=== PATIENT | male | born 1965 | race Caucasian/White ===

== ENCOUNTER → 2017-12-14 17:12 | Outpatient (CLI) | payer BC, SELFPAY ==
--- NOTE | 2017-12-14 17:16 | RAD_ITS ---
STUDY: X-RAY - ABDOMEN/PELVIS REASON FOR EXAM: Male, 52 years old. Hematuria, history of kidney stones TECHNIQUE: AP supine and upright views of the abdomen and pelvis. COMPARISON: None. FINDINGS: Normal visualized lung bases. There is an unremarkable bowel gas pattern. There is a moderate amount of colonic stool. There is no demonstrated free abdominal air. The visualized liver, spleen and kidneys are grossly normal in size and morphology. Bilateral scrotal surgical clips are seen. Normal visualized osseous structures. RAD/Abd Inc Decub and/or Erect IMPRESSION: There is a moderate amount of colonic stool consistent with constipation. No abnormal intra-abdominal or intrapelvic calcifications are noted. Bilateral scrotal surgical clips are seen which may be associated with vasectomy. Electronically Signed: Jose Alberto Baker MD at 20:56 EST , Service support ,
== END ==
PROVIDERS: Family Provider Family Medicine; PCP Family Medicine; Visit Provider Family Medicine
DX: N20.0 Calculus of kidney (principal)
CPT/HCPCS: 74019

== ENCOUNTER 2019-02-10 00:25 | Emergency (ER) | payer BC, SELFPAY ==
[2019-02-10 00:25] VITALS: BP 165/110; PULSE 72; RESP 18; TEMP 37; O2SAT 98; BMI 26.5
[2019-02-10] MEDS: Diphth,Pertuss(Acell),Tet Vac 0.5 ML Vial IM (00:36)
--- NOTE | 2019-02-10 00:37 | ED.DCSUM_ITS ---
History of Present Illness Chief Complaint: Laceration Informant: Patient Onset: Today - less than 1 hr Context: Sudden Onset - accidentally cut w/ box knife/razor Timing: Continuous Quality: sore Location: left thumb Current Severity: Moderate Maximum Severity: Moderate Worsened by: palpation Relieved by: bleeding helped w/ pressure Associated Symptoms: numbness in thumb distal to lac Narrative: Right-hand dominant. Last tetanus unknown. Able to move his thumb, but immediately felt numb distally. Nonwork related injury. Past Medical History - Allergies and Home Meds Allergies/Adverse Reactions: Allergies No Known Allergies Allergy (Verified 02/10/19 00:27) Primary Care Physician: Chase Davila MD [Primary Care Provider] - Past Medical History: None Lives: Spouse/ Significant Other Smoking Status: Never smoker Review of Systems Musculoskeletal: Reports: Extremity Pain Skin: Reports: Wounds Neurological: Reports: Numbness. Denies: Weakness Physical Exam Vital Signs/Narrative: Vital Signs Temp Pulse Resp BP Pulse Ox 02/10/19 00:25 98.6 F 72 18 165/110 H 98 Inital Vital Signs reviewed: Yes General: Well nourished, Well developed, No Acute Distress Head: Normocephalic, Atraumatic Extremities: Tenderness - at left thumb laceration. no deformity. FROM all joints, all tendon function intact. Skin: Trauma - 3cm full thickness linear, clean-appearing laceration radial aspect left thumb, proximal phalanx. occasionally arterial component to bleeding. Neurological: Alert, Oriented x3, Cranial nerves II-XII grossly intact, Normal Strength, Normal Gait, Parasthesia - at radial aspect of left thumb, distal to laceration; sens intact but decreased. Psychological: Normal affect, Normal Mood Diagnostic/Tx/Re-eval - Medical Decision Making Arterial bleeding was able to be well controlled using pressure, before and during the procedure. No arterial bleeding after the repair, only minor oozing from the wound. Given appropriate dressing, discharge instructions, advised with regards to removal in approximately 10-14 days. Advised that he did probably injure/lacerate the radial digital nerve, and that it may be months before he regains full normal sensation to his thumb. Procedures - Lacerations left thumb Length: 3 cm Depth: Sub Q Shape: Linear Prep: Sterile Conditions, Chlorhexadine Laceration repair: Irrigated, Lidocaine, Local Irrigated (ml): 30 Number of Sutures/[place]: 6 Suture Information: Ethilon, Simple, 5-0 Comment: tornicot used for about 10 minutes, but needed to be removed for final #3 sutures due to proximity to wound. no complications. tolerated well. good hemostasis afterwards. ED Disposition - Plan for ED Patient: Disposition: Home or Assisted Living Diagnosis: Laceration of blood vessel of left thumb, initial encounter, Laceration of left thumb without foreign body without damage to nail Instructions: ED Lac Hand Poss Nerve Injy Sutr Gl Referrals: Chase Davila MD [Primary Care Provider] - 10-14 Days suture removal
[2019-02-10 01:35] VITALS: PULSE 72; RESP 18; O2SAT 98
== END 2019-02-10 01:35 | disposition home or self-care (01) ==
PROVIDERS: Emergency Provider Emergency Medicine; Family Provider Family Medicine; PCP Family Medicine
DX: S61.012A Laceration without foreign body of left thumb without damage to nail, initial encounter (principal); S65.412A Laceration of blood vessel of left thumb, initial encounter; W27.8XXA Contact with other nonpowered hand tool, initial encounter; Y93.9 Activity, unspecified; Y92.9 Unspecified place or not applicable; Y99.9 Unspecified external cause status; Z23 Encounter for immunization; Z79.899 Other long term (current) drug therapy
CPT/HCPCS: 12002; 90471; 90715; 99283

== ENCOUNTER → 2019-03-21 11:31 | Outpatient (CLI) | payer BC, OTHER, SELFPAY ==
[2019-03-21 16:03] LABS: ALB/GLOB Ratio 1.4 RATIO (0.9-2.4); AST(SGOT) 16 U/L (15-37); Alanine Aminotransfer ALT/SGPT 27 U/L (16-61); Albumin, Serum 3.8 g/dL (3.2-5.0); Alkaline Phosphatase 83 U/L (45-117); Anion Gap 6 (5-15); BUN 18 mg/dL (7-18); BUN/Creat Ratio 21.8 RATIO (10-20); Calcium,Total 8.7 mg/dL (8.5-10.1); Chloride 110 mmol/L (98-107); Cholesterol 196 mg/dL (200); Creatinine, Serum 0.82 mg/dL (0.70-1.30); EST Glomerular Filtration Rate 103 mL/min (>60); Est Glom Filt Rate - Afr Amer 125 mL/min (>60); Globulin 2.7 g/dL (2.2-4.2); Glucose 102 mg/dL (74-106); High Density Lipoprotein 62 mg/dL; Potassium 4.3 mmol/L (3.5-5.1); Protein, Total 6.5 g/dL (6.4-8.2); Sodium Level 144 mmol/L (136-145); Triglycerides 170 mg/dL; Very Low Density Lipoprotein 34 mg/dL (5-40)
== END ==
PROVIDERS: Family Provider Family Medicine; PCP Family Medicine; Visit Provider Family Medicine
DX: E78.5 Hyperlipidemia, unspecified (principal)
CPT/HCPCS: 36415; 80053; 80061

== ENCOUNTER → 2020-05-17 11:34 | Outpatient (CLI) | payer BC, OTHER, SELFPAY ==
[2020-05-17 15:52] LABS: ALB/GLOB Ratio 1.4 RATIO (0.9-2.4); AST(SGOT) 13 U/L (15-37); Alanine Aminotransfer ALT/SGPT 25 U/L (16-61); Alkaline Phosphatase 100 U/L (45-117); Anion Gap 4 (5-15); BUN 16 mg/dL (7-18); BUN/Creat Ratio 19.6 RATIO (10-20); Chloride 110 mmol/L (98-107); Creatinine, Serum 0.82 mg/dL (0.70-1.30); EST Glomerular Filtration Rate 104 mL/min (>60); Est Glom Filt Rate - Afr Amer 126 mL/min (>60); Globulin 2.9 g/dL (2.2-4.2); Glucose 105 mg/dL (74-106); Protein, Total 6.9 g/dL (6.4-8.2); Sodium Level 142 mmol/L (136-145)
[2020-05-18 10:23] LABS: PSA,Total - Annual Screen 0.38 ng/mL (0.00-4.00)
== END ==
PROVIDERS: PCP Family Medicine; Visit Provider Family Medicine
DX: B35.1 Tinea unguium (principal); Z12.5 Encounter for screening for malignant neoplasm of prostate
CPT/HCPCS: 36415; 80053; 84153; G0103

== ENCOUNTER 2020-06-16 15:42 | Observation (INO) | payer BC, OTHER, SELFPAY ==
[2020-06-16] VITALS (8 sets, daily range): BP systolic 119–132; BP diastolic 83–95; PULSE 71–180; RESP 12–19; TEMP 36.4–36.8; O2SAT 97–98; BMI 26.7; BMI 27.1; BMI 27.2
--- NOTE | 2020-06-16 15:46 | NURSING ---
NO OLD EKGS
--- NOTE | 2020-06-16 15:59 | EKG12_ITS ---
Test Reason : Blood Pressure : / mmHG Vent. Rate : 180 BPM Atrial Rate : 227 BPM P-R Int : 000 ms QRS Dur : 082 ms QT Int : 280 ms P-R-T Axes : 000 -09 -11 degrees QTc Int : 484 ms Supraventricular tachycardia Nonspecific ST abnormality Abnormal ECG Confirmed by ASIF VERNON, HEIDI ([id number]), assistant film editor SUELLEN CHADWICK ([id number]) on 06/18/2020 2:37:50 PM Referred By: Confirmed By:HEIDI GOLD MD
--- NOTE | 2020-06-16 16:00 | ED.DCSUM_ITS ---
History of Present Illness Chief Complaint: Palpitations Informant: Patient, PCP Onset: Today - 20 min [employer] Context: Sudden Onset Timing: Continuous, Waxes and wanes Quality: racing HB Location: chest Current Severity: Mild Maximum Severity: Severe Worsened by: n/a Relieved by: n/a Associated Symptoms: lightheaded. heaviness in arms and neck. no chest pain or sob. Narrative: Patient presents with palpitations, prior to arrival his pulse was around 180. He states he has felt these in the past but only a couple times, but only lasted about 10 or 15 minutes. He has never had tests run on it because it resolves so quickly, and has never had a diagnosis. Today he had some alcohol and was swimming with friends at his pool. He denies any recent illnesses or injury. He states there is heart disease in his family, but he has never been diagnosed with any heart issues. Caffeine use is about 2 cups of coffee per day, no other stimulants. - Past Medical History (1) Irritable bowel syndrome Status: Chronic Past Medical History - Allergies and Home Meds Allergies/Adverse Reactions: Allergies No Known Allergies Allergy (Verified 02/10/19 00:27) Primary Care Physician: Chase Davila MD [Primary Care Provider] - Surgical History: herniorrhaphy Lives: With Family Smoking Status: Current some day smoker Alcohol: Occasional Drugs: None Review of Systems General: Reports: Malaise. Denies: Chills, Fever, Sweats Eyes: Denies: Visual changes - bilaterally, Diplopia ENT: Denies: Rhinorrhea, Sore throat Cardiovascular: Reports: Heart racing. Denies: Chest pain, Palpitations Respiratory: Denies: Dyspnea, Cough, Dyspnea on exertion Gastrointestinal: Denies: Abdominal pain, Nausea, Vomiting, Diarrhea, Melena, Hematochezia Genitourinary: Denies: Dysuria, Hematuria, Frequency Musculoskeletal: Reports: Neck pain, Extremity Pain - Heaviness both arms and shoulders and neck, see HPI. Denies: Back pain Skin: Denies: Rash, Wounds Neurological: Denies: Headache, Weakness, Numbness Endocrine: Denies: Polyuria, Polydipsia, Heat intolerance, Cold intolerance Physical Exam Vital Signs/Narrative: Vital Signs Temp Pulse Resp BP Pulse Ox 06/16/20 15:45 98.3 F 180 H 19 H 119/83 H 97 Inital Vital Signs reviewed: Yes General: Well nourished, Well developed, No Acute Distress Head: Normocephalic, Atraumatic Eyes: Perrl, EOMI ENT: Moist mucous membranes, No rhinorrhea Neck: Supple, Nontender, No JVD Cardiovascular: Regular rate - Around 95, Regular rhythm, No murmurs Respiratory: No distress, CTA bilaterally, Chest nontender Abdomen: Soft, Nontender, Nondistended, Normal bowel sounds Back: Nontender, Normal Inspection Extremities: Nontender, No edema. Negative for: Calf Tenderness Skin: Normal color, No rash, No Trauma Neurological: Alert, Oriented x3, Cranial nerves II-XII grossly intact, Normal Strength, Normal Sensation Psychological: Normal affect, Normal Mood Diagnostic/Tx/Re-eval Impressions Chest X-Ray 06/16/20 16:20 IMPRESSION: Normal x-ray examination of the chest. Electronically Signed: Jose Alberto Baker MD at 16:47 EDT , Service support , 06/16/20 16:20 Chest 1 View (Portable) [RAD] Stat Laboratory Results 06/16/20 06/16/20 15:45 15:59 WBC 5.6 RBC 5.09 Hgb 15.8 Hct 45.9 MCV 90.2 MCH 31.0 MCHC 34.4 RDW Std Deviation 39.5 RDW Coeff of Alonzo 11.9 Plt Count 258 MPV 9.2 Immature Gran % (Auto) 0.400 Neut % (Auto) 48.0 Lymph % (Auto) 37.3 [place] % (Auto) 11.3 H Eos % (Auto) 2.5 Baso % (Auto) 0.5 Absolute Neuts (auto) 2.7 Absolute Lymphs (auto) 2.09 Nucleated RBC % 0 Sodium 142 Potassium 3.7 Chloride 105 Carbon Dioxide 30.0 Anion Gap 7 BUN 13 Creatinine 0.95 Estim Creat Clear Calc 87.86 Est GFR (MDRD) Af Amer 105 Est GFR (MDRD) Non-Af 87 BUN/Creatinine Ratio 13.7 Glucose 104 Calcium 9.6 Troponin I < 0.015 TSH 2.51 - Rhythm Strip Rhythm Strip: svt/narrow complex tachycardia Rate: 180 Ectopy: None - EKG Initial EKG Interpretation: No Acute Injury Pattern, SVT, Non-Specific ST Changes Follow-up EKG Interpretation: Sinus Rhythm, No Acute Injury Pattern - PVC, borderline LVH by voltage, otherwise normal EKG. No delta wave seen. - Medical Decision Making Modified vagal maneuver was initially attempted, and did not result in termination of the patient's dysrhythmia which appears to be some type of supraventricular tachycardia. We then pushed 6 mg of IV adenosine, which broke into a sinus rhythm. EKG was repeated, and other than a PVC, and borderline high voltage in aVL, it is unremarkable. On the initial EKG, in 1 of the leads, there appeared to be electrical alternans, and during this he was only squeezing and creating a pulse for half of the conducted beats, with a pulse in the 90s and asymptomatic. However he still had the heaviness in his arms and jaw, and this resolved after we cardioverted him. His TSH returned unre markable, as that his troponin, his x-ray does not show any sign of a pericardial effusion and he has had no symptoms of hypothyroidism or pericarditis recently except for the fact that he has felt stressed and fatigued for the last week or 2. Plan is for inpatient observation to rule out acute coronary syndrome, discussed with Dr. Krishnan who advised Toprol-XL 25 mg to be given now, and discussed with hospitalist. ED Disposition - Plan for ED Patient: Disposition: Acute Care Hospital [facility] Diagnosis: Supraventricular tachycardia, Anginal equivalent Referrals: Chase Davila MD [Primary Care Provider] -
[2020-06-16] MEDS: Adenosine 6 MG/2 ML Syringe IV (16:04)
[2020-06-16 16:11] LABS: Absolute Lymphocyte Count 2.09 X10^3/uL (0.83-4.51); Absolute Neutrophil Count 2.7 X10^3/uL (2.0-7.7); Basophil# 0.03 X10^3/uL; Basophil% 0.5 % (0-1); Eosinophil# 0.14 X10^3/uL; Eosinophils% 2.5 % (0-5); Hematocrit 45.9 % (40-54); Hemoglobin 15.8 g/dL (13.0-16.5); Lymphocyte # 2.09 X10^3/ul (4.0); Lymphocyte % 37.3 % (19-41); Mean Corp Hgb Conc 34.4 g/dL (32-36); Mean Corpuscular Volume 90.2 fL (80-94); Mean Platelet Vol. 9.2 fl (6.2-12.0); Monocyte# 0.63 X10^3/uL; Monocyte% 11.3 % (0-10); NRBC Flagged by Analyzer 0 % (0-5); Neutrophil # 2.69 X10^3/uL (2.7-7.7); Platelet Count 258 K/mm3 (150-450); RBC Distribution Width CV 11.9 % (11.6-14.6); RBC Distribution Width SD 39.5 fl (35.1-43.9); Red Blood Count 5.09 M/mm3 (4.6-6.2); White Blood Count 5.6 K/mm3 (4.4-11.0)
[2020-06-16 16:13] LABS: POSITIVE COUNT NO; POSITIVE DIFFERENTIAL NO; POSITIVE MORPHOLOGY NO
--- NOTE | 2020-06-16 16:20 | RAD_ITS ---
STUDY: X-RAY CHEST REASON FOR EXAM: Male, 54 years old. heart palpitations TECHNIQUE: Single AP portable view of the chest. COMPARISON: Previous study of 11/11/2012 FINDINGS: monitor car operator leads are present. The lungs are clear and expanded. There is no demonstrated pleural abnormality. Normal size heart. Normal mediastinum and jay. Normal visualized pulmonary arteries. Normal visualized aortic arch and descending thoracic aorta. Normal visualized thoracic spine. Normal visualized ribs, clavicles, and shoulders. There is no demonstrated abnormality of the visualized soft tissue structures of the upper abdomen. RAD/Chest 1 View (Portable) IMPRESSION: Normal x-ray examination of the chest. Electronically Signed: Jose Alberto Baker MD at 16:47 EDT , Service support ,
[2020-06-16 16:55] LABS: Anion Gap 7 (5-15); BUN 13 mg/dL (7-18); BUN/Creat Ratio 13.7 RATIO (10-20); Calcium,Total 9.6 mg/dL (8.5-10.1); Chloride 105 mmol/L (98-107); Creatinine, Serum 0.95 mg/dL (0.70-1.30); EST Glomerular Filtration Rate 87 mL/min (>60); Est Glom Filt Rate - Afr Amer 105 mL/min (>60); Estimated Creatinine Clearance 87.86 ml/min; Glucose 104 mg/dL (74-106); Potassium 3.7 mmol/L (3.5-5.1); Sodium Level 142 mmol/L (136-145); Thyroid Stim Hormone (TSH) 2.51 uIU/mL (0.358-3.74)
[2020-06-16] MEDS: Metoprolol(XL)Succ 25 MG Tablet PO (17:02)
--- NOTE | 2020-06-16 17:02 | NURSING ---
PCU OBS KITTOE SVT, ANGINAL EQUIVALENT
--- NOTE | 2020-06-16 17:08 | HP.PCM_ITS ---
Problem List (1) Anginal equivalent Status: Acute (2) Supraventricular tachycardia Status: Acute (3) Dyslipidemia Status: Chronic (4) Irritable bowel syndrome Status: Chronic History of Present Illness Date of Admission: 06/16/20 Chief Complaint: Palpitations The patient is a 54 year old M in relatively good health with past medical hist ory single for dyslipidemia who presented with palpitations. Patient was at a pool when he developed the palpitations. In addition to the palpitations he felt lightheaded. His Apple Watch noted heart rate of 180. His symptoms lasted about 10 minutes. Patient also did experience left as well as neck pain. Patient was with a friend physician who advised for patient to present to the ED. Vagal maneuvers tried in the ED were not successful. Patient did receive adenosine resulting in patient going back into sinus rhythm. Subsequent telemetry monitoring demonstrated frequent PVCs. Past Medical History Past Medical History (Chronic Problems): Chronic Problems Irritable bowel syndrome (Chronic) Dyslipidemia (Chronic) Allergies No Known Allergies Allergy (Verified 02/10/19 00:27) Home Medications: Ambulatory Orders Medication Instructions Recorded Cholestyramine/Aspartame 4 gm PO DAILY 08/07/15 [Cholestyramine Light Powder] Duloxetine Hcl [Cymbalta] 30 mg PO DAILY 08/07/15 Multivitamin [Daily Multiple 1 each PO DAILY 08/07/15 Vitamin] Simvastatin [Zocor] 10 mg PO DAILY 08/07/15 traZODone [Desyrel] 50 mg PO QHS 08/07/15 Terbinafine HCl 250 mg PO DAILY 06/16/20 Surgical History: herniorrhaphy Lives: With Family Smoking Status: Current some day smoker Tobacco Use: Cigars Alcohol: Occasional Drugs: None - *Family History Paternal History Items: Heart Disease Review of Systems Constitutional: Denies: Anorexia, Chills, Fever, Night Sweats, Weight Change HEENT: Denies: Head Aches, Sinus Congestion, Sinus Drainage Cardiovascular: Reports: Palpitations. Denies: Chest Pain, Orthopnea, Paroxysmal Noc. Dyspnea Respiratory: Denies: Cough, Shortness of breath at rest, Shortness of breath upon exertion, Sputum production Gastrointestinal: Denies: Abdominal Pain, Hematemesis, Hematochezia, Nausea, Melena, Vomiting Genitourinary: Denies: Dysuria, Frequency, Hematuria, Urgency Musculoskeletal: Denies: Joint Pain, Joint Tenderness Skin: Denies: Rash Neurological: Denies: Focal weakness, Numbness, Tingling Psychiatric: Denies: Homicidal Ideations, Suicidal Ideations Hematologic/ Lymphatic: Denies: Easy Bruising, Easy Bleeding VTE Information - Inpt Only VTE Present on Admission: No VTE Mechan Device Prophylaxis: None VTE Pharm Prophylaxis ordered?: Yes Patient Problems: Active and Suspected Problems Supraventricular tachycardia (Acute) Anginal equivalent (Acute) Objective: GENERAL: cooperative HEENT: Atraumatic; EYES; Anicteric, Normal Conjunctiva NECK; supple, normal thyroid, RESPIRATORY: Diminished to auscultation CARDIOVASCULAR: Regular S1 S2, GI: soft, normoactive bowel sounds, : No Renal angle tenderness; EXTREMITIES: No edema, no clubbing, MUSCULOSKELETAL: no muscle waisting NEURO: Awake; no lateralizing signs. SKIN: No Rash PSYCH; Flat affect - Physical Exam Vitals/I&O's: Vital Signs Temp Pulse Resp BP Pulse Ox 98.3 F 180 H 19 H 119/83 H 97 06/16/20 15:45 06/16/20 15:45 06/16/20 15:45 06/16/20 15:45 06/16/20 15:45 Oxygen Delivery Method Room Air Weight: 82.1 kg Body Mass Index (BMI) 26.7 Laboratory Results 06/16/20 15:45: Sodium 142, Potassium 3.7, Chloride 105, Carbon Dioxide 30.0, Anion Gap 7, BUN 13, Creatinine 0.95, Estim Creat Clear Calc 87.86, Est GFR (MDRD) Af Amer 105, Est GFR (MDRD) Non-Af 87, BUN/Creatinine Ratio 13.7, Glucose 104, Calcium 9.6, Troponin I < 0.015, TSH 2.51 06/16/20 15:59: WBC 5.6, RBC 5.09, Hgb 15.8, Hct 45.9, MCV 90.2, MCH 31.0, MCHC 34.4, RDW Std Deviation 39.5, RDW Coeff of Alonzo 11.9, Plt Count 258, MPV 9.2, Immature Gran % (Auto) 0.400, Neut % (Auto) 48.0, Lymph % (Auto) 37.3, [place] % (Auto) 11.3 H, Eos % (Auto) 2.5, Baso % (Auto) 0.5, Absolute Neuts (auto) 2.7, Absolute Lymphs (auto) 2.09, Nucleated RBC % 0 Assessment/Plan All Active Problems Supraventricular tachycardia (Acute) Anginal equivalent (Acute) Patient is a 54-year-old gentleman presented with palpitations 1. PSVT -Patient vagal maneuvers in the ED were not successful patient did receive adenosine and converted back to sinus rhythm. Patient has been admitted to telemetry bed for continuous monitoring. As part of his evaluation ordered TSH 2D echo and consultation placed to cardiology. 2. Anginal equivalent -Admitted to a monitored bed serial cardiac enzymes ordered in addition to 2D echo and cardiology consultation 3. Dyslipidemia -Patient is on statin therapy, continued at home dose 4. Irritable bowel syndrome ?Plan is to treat symptomatically 5. DVT prophylaxis - On enoxaparin OBSV E&M: [id number] Initial observation care L3
--- NOTE | 2020-06-16 17:48 | ECHOD_ITS ---
Reason For Study: ARRHYTHMIA Procedure This was a 2D Doppler, Color Flow transthoracic echocardiogram. Exam performed in department. Left Ventricle Normal size and thickness. The estimated ejection fraction is 55 %. Stage 1 diastolic dysfunction. There is borderline global hypokinesis of the left ventricle. Right Ventricle Normal size and thickness. Normal systolic function. Atria Normal left atrium. Normal right atrium. Normal atrial septum. Mitral Valve The mitral valve is structurally normal. No prolapse or stenosis seen. Trivial mitral valve insufficiency. Tricuspid Valve Normal tricuspid valve. Trivial tricuspid valve insufficiency. Right ventricular systolic pressure estimated to be 31 mmHg. Aortic Valve Trisinus/trileaflet aortic valve. Pulmonic Valve Normal pulmonic valve. Trivial pulmonic valve insufficiency. Great Vessels Normal aortic root. Normal arch. Normal inferior vena cava. Inferior vena cava collapse with sniff. Pericardium/Pleural No pericardial effusion. MMode/2D Measurements & Calculations LVIDd: 4.6 cm IVSd: 0.98 cm Ao root diam: 3.8 cm LVIDs: 3.2 cm LVPWd: 1.0 cm RVDd: 3.5 cm FS: 31.3 % LAV(MOD-bp): 56.5 ml LVAd ap4: 34.3 cm2 SV(MOD-sp4): 58.2 ml LAV(MOD-bp) Indexed: 28.3 ml/m2 EDV(MOD-sp4): 120.5 ml LAV(MOD-sp2): 63.0 ml EDV(sp4-el): 123.7 ml LAV(MOD-sp4): 44.7 ml LVAs ap4: 22.5 cm2 ESV(MOD-sp4): 62.3 ml ESV(sp4-el): 61.7 ml EF(MOD-sp4): 48.3 % EF(sp4-el): 50.1 % SV(sp4-el): 62.0 ml LA A4 area: 16.0 cm2 LA dimension(2D): 4.3 cm RA A4 area: 10.9 cm2 Time Measurements MV dec time: 0.31 sec Doppler Measurements & Calculations MV E max glen: 50.1 cm/sec Lat Peak E' Glen: 7.0 cm/sec Med Peak E' Glen: 5.9 cm/sec MV A max glen: 54.2 cm/sec E/E' lat: 7.2 E/E' med: 8.5 MV E/A: 0.92 Ao V2 max: 116.6 cm/sec LV V1 max: 89.2 cm/sec PA V2 max: 112.8 cm/sec Ao max P.4 mmHg LV V1 max P.2 mmHg PI end-d glen: 99.5 cm/sec TR max glen: 236.7 cm/sec TR max P.4 mmHg Interpretation Summary The estimated ejection fraction is 55 %. Stage 1 diastolic dysfunction. There is borderline global hypokinesis of the left ventricle. Trivial mitral valve insufficiency. Trivial tricuspid valve insufficiency. Right ventricular systolic pressure estimated to be 31 mmHg. There is no comparison study available. Ordering Physician: Victor Manuel Rosales Referring Physician: MOUSTAPHA CURIEL Performed By: Fatou Nieves, MADELIN, RVT
--- NOTE | 2020-06-16 18:04 | EKG12_ITS ---
Test Reason : REPEAT Blood Pressure : / mmHG Vent. Rate : 094 BPM Atrial Rate : 094 BPM P-R Int : 136 ms QRS Dur : 082 ms QT Int : 346 ms P-R-T Axes : 025 -16 -01 degrees QTc Int : 432 ms Sinus rhythm with occasional Premature ventricular complexes Left ventricular hypertrophy Abnormal ECG Confirmed by ASIF VERNON, HEIDI ([id number]), editorial project manager SUELLEN CHADWICK ([id number]) on 06/18/2020 2:38:06 PM Referred By: BB Confirmed By:HEIDI GOLD MD
[2020-06-16 18:47] LABS: Magnesium 2.2 mg/dL (1.6-2.6)
--- NOTE | 2020-06-16 18:47 | EKG12_ITS ---
Test Reason : CP ADMISSION Blood Pressure : / mmHG Vent. Rate : 090 BPM Atrial Rate : 090 BPM P-R Int : 164 ms QRS Dur : 086 ms QT Int : 346 ms P-R-T Axes : 052 -13 -11 degrees QTc Int : 423 ms Sinus rhythm with occasional Premature ventricular complexes Nonspecific T wave abnormality Abnormal ECG When compared with ECG of 16-JUN-2020 16:05, MANUAL COMPARISON REQUIRED, DATA IS UNCONFIRMED Confirmed by PHILIP MENDOZA ([id number]), editor continuity and script PAYAM BECKFORD ([id number]) on 06/26/2020 1:30:00 PM Referred By: MOISÉS Confirmed By:PHILIP MENDOZA
[2020-06-16 19:38] LABS: Thyroid Stim Hormone (TSH) 1.29 uIU/mL (0.358-3.74)
[2020-06-16] MEDS: Atorvastatin Calcium 10 MG Tablet 5 MG PO (21:35)
[2020-06-16] MEDS: traZODone 50 MG Tablet PO (21:35)
[2020-06-17] VITALS (11 sets, daily range): BP systolic 112–134; BP diastolic 71–89; PULSE 53–68; RESP 12–18; TEMP 36.4–36.8; O2SAT 94–100
[2020-06-17 06:10] LABS: Absolute Lymphocyte Count 1.79 X10^3/uL (0.83-4.51); Basophil# 0.01 X10^3/uL; Basophil% 0.2 % (0-1); Eosinophil# 0.19 X10^3/uL; Eosinophils% 4.2 % (0-5); Hematocrit 42.3 % (40-54); Hemoglobin 14.4 g/dL (13.0-16.5); Lymphocyte # 1.79 X10^3/ul (4.0); Lymphocyte % 39.3 % (19-41); Mean Corpuscular Hgb 31.2 pg (27.0-32.0); Mean Corpuscular Volume 91.8 fL (80-94); Mean Platelet Vol. 9.6 fl (6.2-12.0); Monocyte# 0.53 X10^3/uL; Monocyte% 11.6 % (0-10); NRBC Flagged by Analyzer 0 % (0-5); Neutrophil # 2.03 X10^3/uL (2.7-7.7); Neutrophil % 44.5 % (47-70); Platelet Count 226 K/mm3 (150-450); RBC Distribution Width CV 12.3 % (11.6-14.6); RBC Distribution Width SD 41.2 fl (35.1-43.9); Red Blood Count 4.61 M/mm3 (4.6-6.2); White Blood Count 4.6 K/mm3 (4.4-11.0)
[2020-06-17 06:34] LABS: Anion Gap 6 (5-15); BUN 21 mg/dL (7-18); BUN/Creat Ratio 23.3 RATIO (10-20); Calcium,Total 8.3 mg/dL (8.5-10.1); Chloride 106 mmol/L (98-107); EST Glomerular Filtration Rate 93 mL/min (>60); Est Glom Filt Rate - Afr Amer 112 mL/min (>60); Estimated Creatinine Clearance 92.74 ml/min; Glucose 94 mg/dL (74-106); Magnesium 2.3 mg/dL (1.6-2.6); Potassium 3.9 mmol/L (3.5-5.1); Sodium Level 141 mmol/L (136-145)
--- NOTE | 2020-06-17 09:09 | STE_ITS ---
Reason For Study: ARRHYTHMIA-OTHER Stress Results Protocol: Todd Protocol Maximum Predicted HR: 165 bpm Target HR: 140 bpm % Maximum Predicted HR: 95 % DurationHeart Rate Stage (mm:ss) (bpm) BP Comment BASELINE 58 120/84 STAGE 1 3:00 88 132/72 STAGE 2 3:00 107 142/74 STAGE 3 3:00 127 182/84 STAGE 4 2:01 157 / LEG FATIGUE, SOG RECOVERY 86 158/90 Stress Duration: 11:01 mm:ss Maximum Stress HR: 157 bpm Baseline Echocardiogram Findings The estimated ejection fraction is 55 %. Stress Echo Wall motion Data Resting WM Intermediate WM Stress WM Resting Wall Motion Wall Motion Stress No regional wall motion No regional wall motion abnormalities noted. abnormalities noted. EKG Data The baseline ECG displays normal sinus rhythm. The patient exercised according to the regular Todd protocol for a total duration of 11:01. The maximum heart rate attained was 157 beats per minute. This was 95% of maximum predicted heart rate. The patient exercised into stage 4 of the Todd protocol. During stress, there were no ST or T wave changes noted to suggest ischemia. No clinical angina was noted. Interpretation Summary The estimated ejection fraction is 55 %. Normal, adequate, treadmill echocardiogram. Negative for ischemia by EKG and echocardiographic criteria. No anginal symptoms noted. Rare PVCs and ventricular couplets noted at peak exercise. Average exercise capacity for age. Normal blood pressure response to exercise. Final LVEF is 75%. Patient tolerated procedure well. No complication. Ordering Physician: Meng Krishnan Performed By: Fatou Nieves, MADELIN, RVT
[2020-06-17] MEDS: DULoxetine Hcl 30 MG Capsule PO (09:31)
[2020-06-17] MEDS: Enoxaparin 40 MG/0.4 ML Syringe SC (09:32)
[2020-06-17 09:49] LABS: Cholesterol 209 mg/dL (200); High Density Lipoprotein 51 mg/dL; Triglycerides 205 mg/dL; Very Low Density Lipoprotein 41 mg/dL (5-40)
--- NOTE | 2020-06-17 09:56 | CON.PCM_ITS ---
Problem List (1) Supraventricular tachycardia Status: Acute (2) Anginal equivalent Status: Acute (3) Dyslipidemia Status: Chronic Reason for Consult Date of Consultation: 06/17/20 Reason for Consultation: Supraventricular tachycardia, hypertension, hypercholesterolemia, daytime somnolence History of Present Illness: The patient is a 54 year old M friend of Dr. Chase Davila's, nondiabetic, with hypertension, irritable bowel syndrome, hypercholesterolemia, smokes cigars but not cigarettes, no previous known cardiac disease. All the patient was at a pool libertarian yesterday with Dr. Davila, patient developed significant palpitations with with associated shortness of breath, and bilateral arm heaviness as well as lightheadedness and dizziness. His symptoms appear to resolve, but at the encouragement of Dr. Davila he was brought to the emergency room. He had recurrent episode of palpitations and documented SVT by EKG with associated substernal chest pressure during that time. Patient received 1 dose of adenosine, which converted him to normal sinus rhythm. His telemetry has been normal sinus rhythm ever since. Patient was admitted the hospital and ruled out for myocardial infarction with troponins negative x3. He was placed on beta-beulah therapy and has had no further palpitations or SVT. On further history patient states that he has excessive snoring, wakes up tired every single day, and has significant daytime somnolence. He has never been evaluated with a sleep study. He is never had a heart catheterization. He did have 4 beers at yesterday's pool libertarian, and 2 cups of coffee on a daily basis. He states that he is had palpitations for several years without addressing them. He does have a positive family history of myocardial infarction in both his mother and father in their 50s. [] Past Medical History Allergies/Adverse Reactions: Allergies No Known Allergies Allergy (Verified 02/10/19 00:27) Home Medications: Ambulatory Orders Medication Instructions Recorded Cholestyramine/Aspartame 4 gm PO DAILY 08/07/15 [Cholestyramine Light Powder] Duloxetine Hcl [Cymbalta] 30 mg PO DAILY 08/07/15 Multivitamin [Daily Multiple 1 each PO DAILY 08/07/15 Vitamin] Simvastatin [Zocor] 10 mg PO QHS 08/07/15 traZODone [Desyrel] 50 mg PO QHS 08/07/15 Terbinafine HCl 250 mg PO DAILY 06/16/20 Past Medical History (Chronic Problems): Chronic Problems Irritable bowel syndrome (Chronic) Dyslipidemia (Chronic) Surgical History: herniorrhaphy - *Family History Paternal History Items: Heart Disease Lives: With Family Smoking Status: Light Smoker (<10/day) Tobacco Use: Cigars Alcohol: Occasional Drugs: None Review of Systems - Review of Systems General: Denies: Fever, Night Sweats, Fatigue Cardiovascular: Reports: Chest Pressure, Shortness of Breath, Palpitations, Lightheadedness. Denies: Chest Discomfort, Orthopnea, PND, Peripheral Edema, Dizziness, Near Syncope, Syncope Respiratory: Denies: Cough, Sputum Production, Hemoptysis Gastrointestinal: Denies: Hematemesis, Hematochezia, Melena Genitourinary: Denies: Dysuria, Hematuria Skin: Denies: Rash Subjectve: Patient laying in bed, no acute distress. Objective: Vital Signs Temp Pulse Resp BP Pulse Ox 97.5 F L 60 18 127/89 H 97 06/17/20 09:28 06/17/20 09:28 06/17/20 09:28 06/17/20 09:28 06/17/20 09:28 Oxygen Delivery Method Room Air Weight: 184 lb 1.376 oz Body Mass Index (BMI) 27.1 Intake and Output for Last 24 Hours 06/15/20 06/16/20 06/17/20 23:59 23:59 23:59 Intake Total 740 / 740 Balance 740 / 740 General: Awake, Alert, Oriented x 3 HEENT: PERRL, EOMI, Sclera Non Icteric Neck: Supple, Good ROM, No Lymph Node Enlargement Lungs: Clear to auscultation Cardiovascular: Regular Rhythm, Normal S1, Normal S2, No Murmurs, No Rubs, No Gallops Vascular: No Carotid Bruits, Normal Femoral Pulses, Normal Radial Pulses, Normal Dorsalis Pedal Pulse, Normal Posterior Tibial Pulses Abdomen: Bowel Sounds Present, Soft, Non Tender, No HSM, No Organomegaly Extremities: No Cyanosis, No Clubbing, No edema Neurological: No Focal Motor or Sensory Deficit 06/16/20 15:45: Sodium 142, Potassium 3.7, Chloride 105, Carbon Dioxide 30.0, Anion Gap 7, BUN 13, Creatinine 0.95, Est GFR (MDRD) Af Amer 105, Est GFR (MDRD) Non-Af 87, BUN/Creatinine Ratio 13.7, Glucose 104, Calcium 9.6, Troponin I < 0.015 06/16/20 15:45: Magnesium 2.2 06/16/20 15:59: WBC 5.6, RBC 5.09, Hgb 15.8, Hct 45.9, MCV 90.2, MCH 31.0, MCHC 34.4, Plt Count 258, MPV 9.2, Immature Gran % (Auto) 0.400, Neut % (Auto) 48.0, Lymph % (Auto) 37.3, [place] % (Auto) 11.3 H, Eos % (Auto) 2.5, Baso % (Auto) 0.5, Absolute Neuts (auto) 2.7, Nucleated RBC % 0 06/16/20 18:33: Troponin I < 0.015 06/16/20 21:32: Troponin I < 0.015 06/17/20 05:19: WBC 4.6, RBC 4.61, Hgb 14.4, Hct 42.3, MCV 91.8, MCH 31.2, MCHC 34.0, Plt Count 226, MPV 9.6, Immature Gran % (Auto) 0.200, Neut % (Auto) 44.5 L , Lymph % (Auto) 39.3, [place] % (Auto) 11.6 H, Eos % (Auto) 4.2, Baso % (Auto) 0.2, Absolute Neuts (auto) 2.0, Nucleated RBC % 0 06/17/20 05:19: Sodium 141, Potassium 3.9, Chloride 106, Carbon Dioxide 29.0, Anion Gap 6, BUN 21 H, Creatinine 0.90, Est GFR (MDRD) Af Amer 112, Est GFR (MDRD) Non-Af 93, BUN/Creatinine Ratio 23.3 H, Glucose 94, Calcium 8.3 L, Magnesium 2.3 06/17/20 05:19: Triglycerides 205 H, Cholesterol 209 H, LDL Cholesterol 117, VLDL Cholesterol 41 H, HDL Cholesterol 51 Rhythm: EKG: Normal sinus rhythm, no acute changes, PVC noted. ECHO: Pending Stress Test: Pending Cardiac Cath: PCI: CT Surgery: Holter monitor: EPS: PPM: CXR: Chest CT Scan: Assessment/Plan 1. Supraventricular tachycardia: Patient presents with several years of palpitations, with newly discovered supraventricular tachycardia documented by EKG in the emergency room and broken with adenosine. In addition the patient has a long history of what sounds like obstructive sleep apnea symptoms, periodic alcohol use, and daily caffeine use of 2 cups of coffee per day. I recommended the patient discontinue his metoprolol, and switch him to Cardizem CD 120 mg p.o. daily given his daytime fatigue already as well as his irritable bowel syndrome which may benefit from the side effects of calcium channel blockers. In addition I recommend the patient undergo a 2D echo with Doppler as well as a treadmill echocardiogram to evaluate for possible coronary ischemia. If either 1 of these are grossly abnormal, the patient will require diagnostic coronary angiogram. His TSH is normal. In addition as an outpatient I would recommend that he undergo a full sleep study as he appears to have signs and symptoms of obstructive sleep apnea which may be aggravating his hypertension, SVT, and overall fatigue. 2. Hyperlipidemia: His LDL cholesterol is 117. Recommend switching him from Zocor to Lipitor and repeating lipid profile in 6 weeks time. Given his family history of heart disease I would recommend his LDL be less than 100 and preferably less than 70. 3. Thank you very much for the opportunity to participate in the cardiac care of your patient. Consultation time took place between 9 and 9:30 AM. Inpatient E&M: 23026 In Hosp L2
--- NOTE | 2020-06-17 12:00 | PCM.PROGNOTE ---
<Pura Swenson - Last Filed: 06/17/20 12:06> Patient Problems: Active and Suspected Problems Supraventricular tachycardia (Acute) Anginal equivalent (Acute) Subjective: Patient seen and examined. Denies further palpitations overnight or this morning. Denies chest pain, shortness of breath. Patient reports over the last few weeks he has been fatiguing easily. - Physical Exam Vitals/I&O's: Vital Signs Temp Pulse Resp BP Pulse Ox 97.5 F L 60 18 127/89 H 97 06/17/20 09:28 06/17/20 09:28 06/17/20 09:28 06/17/20 09:28 06/17/20 09:28 Oxygen Delivery Method Room Air Weight: 184 lb 1.376 oz Body Mass Index (BMI) 27.1 Intake and Output for Last 24 Hours 06/15/20 06/16/20 06/17/20 23:59 23:59 23:59 Intake Total 740 / 740 Balance 740 / 740 General: Alert, Oriented x3, Cooperative HEENT: Atraumatic, PERRLA, EOMI, Normocephalic Neck: Supple, No JVD, Negative Carotid Bruits Lungs: Clear to auscultation, Normal air movement Cardiovascular: Regular rate, No murmurs Abdomen: Bowel Sounds Present, Soft, Non Tender Extremities: No edema, Capillary Refill Less than 3 Seconds Skin: No rashes, No breakdown Musculoskeletal: No Tenderness to Palpation of Joints or Extremities Neurological: Cranial nerves II-XII grossly intact, Neuro grossly intact Psych/Mental Status: Normal Affect, Appropriate Laboratory Results 06/16/20 15:45: Sodium 142, Potassium 3.7, Chloride 105, Carbon Dioxide 30.0, Anion Gap 7, BUN 13, Creatinine 0.95, Estim Creat Clear Calc 87.86, Est GFR (MDRD) Af Amer 105, Est GFR (MDRD) Non-Af 87, BUN/Creatinine Ratio 13.7, Glucose 104, Calcium 9.6, Troponin I < 0.015, TSH 2.51 06/16/20 15:45: Magnesium 2.2 06/16/20 15:59: WBC 5.6, RBC 5.09, Hgb 15.8, Hct 45.9, MCV 90.2, MCH 31.0, MCHC 34.4, RDW Std Deviation 39.5, RDW Coeff of [place] 11.9, Plt Count 258, MPV 9.2, Immature Gran % (Auto) 0.400, Neut % (Auto) 48.0, Lymph % (Auto) 37.3, [place] % (Auto) 11.3 H, Eos % (Auto) 2.5, Baso % (Auto) 0.5, Absolute Neuts (auto) 2.7, Absolute Lymphs (auto) 2.09, Nucleated RBC % 0 06/16/20 18:33: Troponin I < 0.015 06/16/20 18:33: TSH 1.29 06/16/20 21:32: Troponin I < 0.015 06/17/20 05:19: WBC 4.6, RBC 4.61, Hgb 14.4, Hct 42.3, MCV 91.8, MCH 31.2, MCHC 34.0, RDW Std Deviation 41.2, RDW Coeff of [place] 12.3, Plt Count 226, MPV 9.6, Immature Gran % (Auto) 0.200, Neut % (Auto) 44.5 L, Lymph % (Auto) 39.3, [place] % (Auto) 11.6 H, Eos % (Auto) 4.2, Baso % (Auto) 0.2, Absolute Neuts (auto) 2.0, Absolute Lymphs (auto) 1.79, Nucleated RBC % 0 06/17/20 05:19: Sodium 141, Potassium 3.9, Chloride 106, Carbon Dioxide 29.0, Anion Gap 6, BUN 21 H, Creatinine 0.90, Estim Creat Clear Calc 92.74, Est GFR (MDRD) Af Amer 112, Est GFR (MDRD) Non-Af 93, BUN/Creatinine Ratio 23.3 H, Glucose 94, Calcium 8.3 L, Magnesium 2.3 06/17/20 05:19: Triglycerides 205 H, Cholesterol 209 H, LDL Cholesterol 117, VLDL Cholesterol 41 H, HDL Cholesterol 51 Current Medications Acetaminophen (Tylenol) 650 mg PO Q6H PRN PRN PRN Reason: Pain Score 1-10/Temp > 100.7 F Al Hydroxide/Mg Hydroxide (Mylanta Ii) 30 ml PO Q6H PRN PRN PRN Reason: Gastric Burning Atorvastatin Calcium (Lipitor) 5 mg PO QHS [facility] Last Admin: 06/16/20 21:35 Dose: 5 mg Documented by: Cholestyramine Resin (Questran 4gm Packet) 4 gm PO DAILY@1100 [facility] Diltiazem HCl (Cardizem Cd) 120 mg PO DAILY [facility] Duloxetine HCl (Cymbalta) 30 mg PO DAILY [facility] Last Admin: 06/17/20 09:31 Dose: 30 mg Documented by: Enoxaparin Sodium (Lovenox) 40 mg SC DAILY [facility] Last Admin: 06/17/20 09:32 Dose: 40 mg Documented by: Sodium Chloride () 250 mls @ 15 mls/hr IV .[id number] PRN PRN Reason: Saline Flush Sodium Chloride () 250 mls @ 15 mls/hr IV .[id number] PRN PRN Reason: Additional IVPB Infusion Melatonin (Melatonin) 3 mg PO QHS PRN PRN PRN Reason: INSOMNIA Nitroglycerin (Nitrostat) 0.4 mg SUBLINGUAL Q5M PRN PRN Reason: CARDIAC/CHEST PAIN Ondansetron HCl (Zofran) 4 mg IV Q8H PRN PRN PRN Reason: NAUSEA/VOMITING Oxycodone HCl (Oxyir) 5 mg PO Q4H PRN PRN PRN Reason: Pain Score 4-5/10 Oxycodone HCl (Oxyir) 10 mg PO Q4H PRN PRN PRN Reason: Pain Score 6-10/10 Promethazine HCl (Phenergan) 25 mg IM Q6H PRN PRN PRN Reason: Breakthrough Nausea/Vomiting Sodium Chloride () 10 - 40 ml IV UD PRN PRN Reason: SALINE FLUSH Trazodone HCl (Desyrel) 50 mg PO QHS [facility] Last Admin: 06/16/20 21:35 Dose: 50 mg Documented by: Medical Necessity - Tobacco Use Smoking Status: Light Smoker (<10/day) Tobacco Use: Cigars Assessment/Plan All Active Problems Supraventricular tachycardia (Acute) Anginal equivalent (Acute) 1. PSVT-patient states he has a history of palpitations however episode prior to admission lasted longer than previous episodes. Patient received adenosine and metoprolol in ER. Rhythm has since remained stable. Cardiology consult placed. Troponin negative. Echocardiogram ordered. Placed on Cardizem 120 mg daily. Plan for stress test in a.m. 2. Hyperlipidemia-continue statin. Cardiology recommending switching from Zocor to Lipitor and repeat lipid profile in 6 weeks. 3. Significant family cardiac history-reports both mother/father have cardiac disease at early age. 4. Suspected PRIETO-will need outpatient referral for PSG. DVT prophylaxis- Lovenox sc This patient was seen by MARTA Huddleston under the supervision of Dr. Rosales. <Victor Manuel Rosales - Last Filed: 06/17/20 13:09> - Physical Exam Vitals/I&O's: Vital Signs Temp Pulse Resp BP Pulse Ox 97.5 F L 68 18 127/89 H 97 06/17/20 09:28 06/17/20 10:59 06/17/20 09:28 06/17/20 09:28 06/17/20 09:28 Oxygen Delivery Method Room Air Weight: 83.5 kg Body Mass Index (BMI) 27.1 Intake and Output for Last 24 Hours 06/15/20 06/16/20 06/17/20 23:59 23:59 23:59 Intake Total 740 / 740 350 / 350 Balance 740 / 740 350 / 350 Laboratory Results 06/16/20 15:45: Sodium 142, Potassium 3.7, Chloride 105, Carbon Dioxide 30.0, Anion Gap 7, BUN 13, Creatinine 0.95, Estim Creat Clear Calc 87.86, Est GFR (MDRD) Af Amer 105, Est GFR (MDRD) Non-Af 87, BUN/Creatinine Ratio 13.7, Glucose 104, Calcium 9.6, Troponin I < 0.015, TSH 2.51 06/16/20 15:45: Magnesium 2.2 06/16/20 15:59: WBC 5.6, RBC 5.09, Hgb 15.8, Hct 45.9, MCV 90.2, MCH 31.0, MCHC 34.4, RDW Std Deviation 39.5, RDW Coeff of [place] 11.9, Plt Count 258, MPV 9.2, Immature Gran % (Auto) 0.400, Neut % (Auto) 48.0, Lymph % (Auto) 37.3, [place] % (Auto) 11.3 H, Eos % (Auto) 2.5, Baso % (Auto) 0.5, Absolute Neuts (auto) 2.7, Absolute Lymphs (auto) 2.09, Nucleated RBC % 0 06/16/20 18:33: Troponin I < 0.015 06/16/20 18:33: TSH 1.29 06/16/20 21:32: Troponin I < 0.015 06/17/20 05:19: WBC 4.6, RBC 4.61, Hgb 14.4, Hct 42.3, MCV 91.8, MCH 31.2, MCHC 34.0, RDW Std Deviation 41.2, RDW Coeff of [place] 12.3, Plt Count 226, MPV 9.6, Immature Gran % (Auto) 0.200, Neut % (Auto) 44.5 L, Lymph % (Auto) 39.3, [place] % (Auto) 11.6 H, Eos % (Auto) 4.2, Baso % (Auto) 0.2, Absolute Neuts (auto) 2.0, Absolute Lymphs (auto) 1.79, Nucleated RBC % 0 06/17/20 05:19: Sodium 141, Potassium 3.9, Chloride 106, Carbon Dioxide 29.0, Anion Gap 6, BUN 21 H, Creatinine 0.90, Estim Creat Clear Calc 92.74, Est GFR (MDRD) Af Amer 112, Est GFR (MDRD) Non-Af 93, BUN/Creatinine Ratio 23.3 H, Glucose 94, Calcium 8.3 L, Magnesium 2.3 06/17/20 05:19: Triglycerides 205 H, Cholesterol 209 H, LDL Cholesterol 117, VLDL Cholesterol 41 H, HDL Cholesterol 51 Current Medications Acetaminophen (Tylenol) 650 mg PO Q6H PRN PRN PRN Reason: Pain Score 1-10/Temp > 100.7 F Al Hydroxide/Mg Hydroxide (Mylanta Ii) 30 ml PO Q6H PRN PRN PRN Reason: Gastric Burning Atorvastatin Calcium (Lipitor) 5 mg PO QHS [facility] Last Admin: 06/16/20 21:35 Dose: 5 mg Documented by: Cholestyramine Resin (Questran 4gm Packet) 4 gm PO DAILY@1100 [facility] Diltiazem HCl (Cardizem Cd) 120 mg PO DAILY [facility] Duloxetine HCl (Cymbalta) 30 mg PO DAILY [facility] Last Admin: 06/17/20 09:31 Dose: 30 mg Documented by: Enoxaparin Sodium (Lovenox) 40 mg SC DAILY [facility] Last Admin: 06/17/20 09:32 Dose: 40 mg Documented by: Sodium Chloride () 250 mls @ 15 mls/hr IV .[id number] PRN PRN Reason: Saline Flush Sodium Chloride () 250 mls @ 15 mls/hr IV .[id number] PRN PRN Reason: Additional IVPB Infusion Melatonin (Melatonin) 3 mg PO QHS PRN PRN PRN Reason: INSOMNIA Nitroglycerin (Nitrostat) 0.4 mg SUBLINGUAL Q5M PRN PRN Reason: CARDIAC/CHEST PAIN Ondansetron HCl (Zofran) 4 mg IV Q8H PRN PRN PRN Reason: NAUSEA/VOMITING Oxycodone HCl (Oxyir) 5 mg PO Q4H PRN PRN PRN Reason: Pain Score 4-5/10 Oxycodone HCl (Oxyir) 10 mg PO Q4H PRN PRN PRN Reason: Pain Score 6-10/10 Promethazine HCl (Phenergan) 25 mg IM Q6H PRN PRN PRN Reason: Breakthrough Nausea/Vomiting Sodium Chloride () 10 - 40 ml IV UD PRN PRN Reason: SALINE FLUSH Trazodone HCl (Desyrel) 50 mg PO QHS [facility] Last Admin: 06/16/20 21:35 Dose: 50 mg Documented by: Assessment/Plan This patient was seen in conjunction with MARTA Huddleston . I have independently interviewed and examined the patient and reviewed pertinent historical, laboratory, and other data. Please refer to MARTA Huddleston note for details of this patient's presentation, findings, and recommendations. I have reviewed MARTA Huddleston note and concur with documented findings. In brief, Patient is a 54-year-old gentleman presented with palpitations Physical Examination: GENERAL: cooperative HEENT: Atraumatic; EYES; Anicteric, Normal Conjunctiva NECK; supple, normal thyroid, RESPIRATORY: Diminished to auscultation CARDIOVASCULAR: Regular S1 S2, GI: soft, normoactive bowel sounds, : No Renal angle tenderness; EXTREMITIES: No edema, no clubbing, MUSCULOSKELETAL: no muscle waisting NEURO: Awake; no lateralizing signs. SKIN: No Rash PSYCH; Flat affect Assessment: 1. PSVT 2. Anginal equivalent 3. Dyslipidemia 4. Irritable bowel syndrome 5. DVT prophylaxis Recommendations: 1. I have discussed the results of my overview and impressions with the patient 2. Options for management were reviewed OBSV E&M: [id number] Subsequent observation care L3
[2020-06-17] MEDS: Atorvastatin Calcium 10 MG Tablet 5 MG PO (21:37)
[2020-06-17] MEDS: traZODone 50 MG Tablet PO (21:37)
[2020-06-18 02:25] VITALS: BP 128/76; PULSE 61; RESP 15; TEMP 36.7; O2SAT 96
[2020-06-18 03:00] VITALS: PULSE 55
[2020-06-18 07:14] VITALS: PULSE 60
[2020-06-18 10:21] VITALS: BP 119/95; PULSE 70; RESP 16; TEMP 36.7; O2SAT 95
--- NOTE | 2020-06-18 10:36 | DCINST_ITS ---
- Discharge Diagnoses Current Active Problems: Current Active and Chronic Problems Supraventricular tachycardia (Acute) Dyslipidemia (Chronic) You will use the following diet at home:: Cardiac Discharge Activity: Return to Normal Activity Call your doctor if you observe: Shortness of breath, Dizziness, Fainting spells, Chest pain Allergies/Adverse Reactions: Allergies No Known Allergies Allergy (Verified 02/10/19 00:27) Medications to take at Discharge Cholestyramine/Aspartame [Cholestyramine Light Powder] 4 gm PO DAILY 08/07/15 Duloxetine Hcl [Cymbalta] 30 mg PO DAILY 08/07/15 Multivitamin [Daily Multiple Vitamin] 1 each PO DAILY 08/07/15 traZODone [Desyrel] 50 mg PO QHS 08/07/15 Terbinafine HCl 250 mg PO DAILY 06/16/20 Atorvastatin Calcium [Lipitor] 10 mg PO QHS #60 tab 06/18/20 Diltiazem CD [Cardizem CD] 120 mg PO DAILY #60 cap 06/18/20 The following prescriptions were given: Diltiazem CD [Cardizem CD] 120 mg PO DAILY #60 cap Transmission Status: Sent to [address] Atorvastatin Calcium [Lipitor] 10 mg PO QHS #60 tab Transmission Status: Pending to [address] Primary Care Physician: Chase Davila MD [Primary Care Provider] - Please follow up with your Primary Care Physician in: 1 Week Test Results: Test results from this visit will be discussed in further detail at your follow- up appointment, if applicable. Please Follow Up With: Chase Garcia MD When: 2 Weeks Proposed Discharge Date: 06/18/20
--- NOTE | 2020-06-18 10:39 | PCM.DC.SUM ---
<Pura Swenson - Last Filed: 06/18/20 11:03> Discharge Date and Diagnosis Date of Admission: 06/16/20 Date of Discharge: 06/18/20 - Primary Discharge Diagnosis Acute Problems: Active Problems 1. PSVT 2. Hyperlipidemia 3. Significant family cardiac history 4. Suspected PRIETO - Secondary Discharge Diagnosis Chronic Problems: Chronic Problems Irritable bowel syndrome (Chronic) Dyslipidemia (Chronic) Hospital Course and Treatment Imaging Results: Diagnostic Data Chest X-Ray 06/16/20 16:20 IMPRESSION: Normal x-ray examination of the chest. Electronically Signed: Jose Alberto Baker MD at 16:47 EDT , Service support , Operations: None Procedures: 2-D Echocardiogram, Stress test Summary of Care Provided: The patient is a 54 year old M admitted 06/16/2020 due to palpitations. 1. PSVT-patient states he has a history of palpitations however episode prior to admission lasted longer than previous episodes. Patient received adenosine and metoprolol in ER. Rhythm has since remained stable. Cardiology consult placed. Troponin negative. Echocardiogram demonstrates an EF of 55%, stage I diastolic dysfunction, RVSP estimated to be 31 mmHg. Patient underwent stress echo which was negative for ischemia. Placed on Cardizem CD 120 mg p.o. daily. Follow-up with cardiology in 1 to 2 weeks. Recommend outpatient sleep study which can be arranged by primary care provider. 2. Hyperlipidemia-LDL 117. Triglycerides 205. Total cholesterol 207. Cardiology recommending switching from Zocor to Lipitor and repeat lipid profile in 6 weeks. Continue Lipitor 10 mg p.o. nightly at discharge with repeat lipid profile by PCP in 6 weeks. 3. Significant family cardiac history-reports both mother/father have cardiac disease at early age. Stress test normal as noted above. 4. Suspected PRIETO-will need outpatient referral for PSG. General: Alert, Oriented x3, Cooperative HEENT: Atraumatic, PERRLA, EOMI, Normocephalic Neck: Supple, No JVD, Negative Carotid Bruits Lungs: Clear to auscultation, Normal air movement Cardiovascular: Regular rate, No murmurs Abdomen: Bowel Sounds Present, Soft, Non Tender Extremities: No edema, Capillary Refill Less than 3 Seconds Skin: No rashes, No breakdown Musculoskeletal: No Tenderness to Palpation of Joints or Extremities Neurological: Cranial nerves II-XII grossly intact, Neuro grossly intact Psych/Mental Status: Normal Affect, Appropriate Patient seen and examined prior to discharge. Physical assessment as noted above. Patient is stable for discharge with follow up recommendations as noted above. This patient was seen by MARTA Huddleston under the supervision of Dr. Benedict. - Physical Exam Vitals/I&O's: Vital Signs Temp Pulse Resp BP Pulse Ox 98.0 F 70 16 119/95 H 95 06/18/20 10:21 06/18/20 10:21 06/18/20 10:21 06/18/20 10:21 06/18/20 10:21 Oxygen Delivery Method Room Air Weight: 184 lb 1.376 oz Body Mass Index (BMI) 27.1 Intake and Output for Last 24 Hours 06/16/20 06/17/20 06/18/20 23:59 23:59 23:59 Intake Total 740 / 740 872 / 1472 600 / 600 Balance 740 / 740 872 / 1472 600 / 600 Current Medications Acetaminophen (Tylenol) 650 mg PO Q6H PRN PRN PRN Reason: Pain Score 1-10/Temp > 100.7 F Al Hydroxide/Mg Hydroxide (Mylanta Ii) 30 ml PO Q6H PRN PRN PRN Reason: Gastric Burning Atorvastatin Calcium (Lipitor) 5 mg PO QHS [facility] Last Admin: 06/17/20 21:37 Dose: 5 mg Documented by: Cholestyramine Resin (Questran 4gm Packet) 4 gm PO DAILY@1100 [facility] Diltiazem HCl (Cardizem Cd) 120 mg PO DAILY [facility] Duloxetine HCl (Cymbalta) 30 mg PO DAILY [facility] Last Admin: 06/17/20 09:31 Dose: 30 mg Documented by: Enoxaparin Sodium (Lovenox) 40 mg SC DAILY [facility] Last Admin: 06/17/20 09:32 Dose: 40 mg Documented by: Sodium Chloride () 250 mls @ 15 mls/hr IV .[id number] PRN PRN Reason: Saline Flush Sodium Chloride () 250 mls @ 15 mls/hr IV .[id number] PRN PRN Reason: Additional IVPB Infusion Melatonin (Melatonin) 3 mg PO QHS PRN PRN PRN Reason: INSOMNIA Nitroglycerin (Nitrostat) 0.4 mg SUBLINGUAL Q5M PRN PRN Reason: CARDIAC/CHEST PAIN Ondansetron HCl (Zofran) 4 mg IV Q8H PRN PRN PRN Reason: NAUSEA/VOMITING Oxycodone HCl (Oxyir) 5 mg PO Q4H PRN PRN PRN Reason: Pain Score 4-5/10 Oxycodone HCl (Oxyir) 10 mg PO Q4H PRN PRN PRN Reason: Pain Score 6-10/10 Promethazine HCl (Phenergan) 25 mg IM Q6H PRN PRN PRN Reason: Breakthrough Nausea/Vomiting Sodium Chloride () 10 - 40 ml IV UD PRN PRN Reason: SALINE FLUSH Trazodone HCl (Desyrel) 50 mg PO QHS [facility] Last Admin: 06/17/20 21:37 Dose: 50 mg Documented by: Discharge Diet: Low fat/ Low Cholesterol Discharge Activity: Return to Normal Activity Call your doctor if you observe: Shortness of breath, Dizziness, Fainting spells, Chest pain Home Medications: Medications to take at Discharge Cholestyramine/Aspartame [Cholestyramine Light Powder] 4 gm PO DAILY 08/07/15 Duloxetine Hcl [Cymbalta] 30 mg PO DAILY 08/07/15 Multivitamin [Daily Multiple Vitamin] 1 each PO DAILY 08/07/15 traZODone [Desyrel] 50 mg PO QHS 08/07/15 Terbinafine HCl 250 mg PO DAILY 06/16/20 Diltiazem CD [Cardizem CD] 120 mg PO DAILY #60 cap 06/18/20 Pravastatin [Pravachol] 20 mg PO QHS #30 tab 06/18/20 Following Prescriptions Were Given to Patient: Diltiazem CD [Cardizem CD] 120 mg PO DAILY #60 cap Transmission Status: Received by [facility] Pravastatin [Pravachol] 20 mg PO QHS #30 tab Transmission Status: Received by [facility] Primary Care Physician: Chase Davila MD [Primary Care Provider] - Please follow up with your Primary Care Physician in: 1 Week Please Follow Up With: Chase Garcia MD When: 2 Weeks Disposition: Home Minutes spent on discharge:: 35 Patient Condition:: Stable Medical Necessity - Tobacco Use Smoking Status: Light Smoker (<10/day) Tobacco Use: Cigars Meaningful Use Info Meaningful Use Diagnoses (Choose all that apply): None applicable <JakWilman - Last Filed: 06/18/20 13:24> Discharge Date and Diagnosis - Secondary Discharge Diagnosis Chronic Problems: Chronic Problems Irritable bowel syndrome (Chronic) Dyslipidemia (Chronic) Hospital Course and Treatment Operations: None Procedures: 2-D Echocardiogram, Stress test Summary of Care Provided: Patient seen and examined independently. Data reviewed. I agree with the above note by the nurse practitioner. The patient is a 54 year old M presents with palpitations. Patient was found to be in SVT. Resolved with adenosine and metoprolol. Patient was seen in consultation by cardiology. Echocardiogram is unremarkable with an EF of 55%. Stress echo was unremarkable. Patient started on diltiazem 120 mg daily. Patient to follow-up with cardiology as outpatient. [] - Physical Exam Vitals/I&O's: Vital Signs Temp Pulse Resp BP Pulse Ox 36.7 C 77 16 119/95 H 95 06/18/20 10:21 06/18/20 11:33 06/18/20 10:21 06/18/20 10:21 06/18/20 10:21 Oxygen Delivery Method Room Air Weight: 83.5 kg Body Mass Index (BMI) 27.1 Intake and Output for Last 24 Hours 06/16/20 06/17/20 06/18/20 23:59 23:59 23:59 Intake Total 740 / 740 872 / 1472 840 / 840 Balance 740 / 740 872 / 1472 840 / 840 General: Alert, No apparent distress HEENT: Atraumatic, Normocephalic Oral: Moist Mucosa, No Gingival or Mucosal Lesions/ Ulcerations Neck: No Nodes, Thyroid Normal Size and Texture Lungs: Clear to auscultation, Normal air movement, No rhonchi, No wheeze, No rales Cardiovascular: Regular rate, Regular Rhythm, Normal S1, Normal S2 Abdomen: Bowel Sounds Present, Soft, Non Tender, Non-Distended, No Hepato-splenomegaly Extremities: No edema, No Calf Tenderness Psych/Mental Status: Normal Affect Current Medications Acetaminophen (Tylenol) 650 mg PO Q6H PRN PRN PRN Reason: Pain Score 1-10/Temp > 100.7 F Al Hydroxide/Mg Hydroxide (Mylanta Ii) 30 ml PO Q6H PRN PRN PRN Reason: Gastric Burning Atorvastatin Calcium (Lipitor) 5 mg PO QHS [facility] Last Admin: 06/17/20 21:37 Dose: 5 mg Documented by: Cholestyramine Resin (Questran 4gm Packet) 4 gm PO DAILY@1100 [facility] Last Admin: 06/18/20 13:07 Dose: Not Given Documented by: Diltiazem HCl (Cardizem Cd) 120 mg PO DAILY [facility] Last Admin: 06/18/20 11:09 Dose: 120 mg Documented by: Duloxetine HCl (Cymbalta) 30 mg PO DAILY [facility] Last Admin: 06/18/20 11:09 Dose: 30 mg Documented by: Enoxaparin Sodium (Lovenox) 40 mg SC DAILY [facility] Last Admin: 06/18/20 11:09 Dose: 40 mg Documented by: Sodium Chloride () 250 mls @ 15 mls/hr IV .[id number] PRN PRN Reason: Saline Flush Sodium Chloride () 250 mls @ 15 mls/hr IV .[id number] PRN PRN Reason: Additional IVPB Infusion Melatonin (Melatonin) 3 mg PO QHS PRN PRN PRN Reason: INSOMNIA Nitroglycerin (Nitrostat) 0.4 mg SUBLINGUAL Q5M PRN PRN Reason: CARDIAC/CHEST PAIN Ondansetron HCl (Zofran) 4 mg IV Q8H PRN PRN PRN Reason: NAUSEA/VOMITING Oxycodone HCl (Oxyir) 5 mg PO Q4H PRN PRN PRN Reason: Pain Score 4-5/10 Oxycodone HCl (Oxyir) 10 mg PO Q4H PRN PRN PRN Reason: Pain Score 6-10/10 Promethazine HCl (Phenergan) 25 mg IM Q6H PRN PRN PRN Reason: Breakthrough Nausea/Vomiting Sodium Chloride () 10 - 40 ml IV UD PRN PRN Reason: SALINE FLUSH Trazodone HCl (Desyrel) 50 mg PO QHS [facility] Last Admin: 06/17/20 21:37 Dose: 50 mg Documented by: Discharge Diet: Low fat/ Low Cholesterol Discharge Activity: Return to Normal Activity Call your doctor if you observe: Shortness of breath, Dizziness, Fainting spells, Chest pain Disposition: Home Patient Condition:: Stable Medical Necessity - Tobacco Use Smoking Status: Light Smoker (<10/day) Tobacco Use: Cigars Meaningful Use Info Meaningful Use Diagnoses (Choose all that apply): None applicable OBSV E&M: 65567 Observation care discharge
--- NOTE | 2020-06-18 10:47 | CASEMGMT ---
DENG SHERWOOD NOTE: Pt being discharged. DENG SHERWOOD to room to talk with pt. He denies having any discharge needs/concerns at this time. Nimco NGUYENN DENG SHERWOOD
[2020-06-18] MEDS: DULoxetine Hcl 30 MG Capsule PO (11:09)
[2020-06-18] MEDS: dilTIAZem CD 120 MG Capsule PO (11:09)
[2020-06-18] MEDS: Enoxaparin 40 MG/0.4 ML Syringe SC (11:09)
--- NOTE | 2020-06-18 11:12 | PCM.PN.CARD ---
Subjectve: Patient seen and examined, doing fairly well. No further SVT. Stress test this morning was negative for inducible ischemia. Echocardiogram done this morning demonstrated borderline LVEF of 55%. Objective: Vital Signs Temp Pulse Resp BP Pulse Ox 98.0 F 70 16 119/95 H 95 06/18/20 10:21 06/18/20 10:21 06/18/20 10:21 06/18/20 10:21 06/18/20 10:21 Oxygen Delivery Method Room Air Weight: 184 lb 1.376 oz Body Mass Index (BMI) 27.1 Intake and Output for Last 24 Hours 06/16/20 06/17/20 06/18/20 23:59 23:59 23:59 Intake Total 740 / 740 872 / 1472 600 / 600 Balance 740 / 740 872 / 1472 600 / 600 General: Awake, Alert, Oriented x 3 HEENT: PERRL, EOMI, Sclera Non Icteric Neck: Supple, Good ROM, No Lymph Node Enlargement Lungs: Clear to auscultation Cardiovascular: Regular Rhythm, Normal S1, Normal S2, No Murmurs, No Rubs, No Gallops Vascular: No Carotid Bruits, Normal Femoral Pulses, Normal Radial Pulses, Normal Dorsalis Pedal Pulse, Normal Posterior Tibial Pulses Abdomen: Bowel Sounds Present, Soft, Non Tender, No HSM, No Organomegaly Extremities: No Cyanosis, No Clubbing, No edema Neurological: No Focal Motor or Sensory Deficit Rhythm: EKG: ECHO: Stress Test: Cardiac Cath: PCI: CT Surgery: Holter monitor: EPS: PPM: CXR: Chest CT Scan: Medical Necessity - Tobacco Use Smoking Status: Light Smoker (<10/day) Tobacco Use: Cigars Assessment/Plan 1. Supraventricular tachycardia: Patient presents with several years of palpitations, with newly discovered supraventricular tachycardia documented by EKG in the emergency room and broken with adenosine. In addition the patient has a long history of what sounds like obstructive sleep apnea symptoms, periodic alcohol use, and daily caffeine use of 2 cups of coffee per day. I recommended the patient discontinue his metoprolol, and switch him to Cardizem CD 120 mg p.o. daily given his daytime fatigue already as well as his irritable bowel syndrome which may benefit from the side effects of calcium channel blockers. We will initiate this today, and if he tolerates it well he may go home. He underwent a 2D echo with Doppler which demonstrated mild borderline LVEF of 5%, and stress echocardiogram was negative for inducible ischemia. No catheterization needed at this time. No indication for anticoagulation. His TSH is normal. In addition as an outpatient I would recommend that he undergo a full sleep study as he appears to have signs and symptoms of obstructive sleep apnea which may be aggravating his hypertension, SVT, and overall fatigue. As an outpatient through our office. 2. Hyperlipidemia: His LDL cholesterol is 117. Recommend switching him from Zocor to Lipitor and repeating lipid profile in 6 weeks time. Given his family history of heart disease I would recommend his LDL be less than 100 and preferably less than 70. 3. Thank you very much for the opportunity to participate in the cardiac care of your patient. He may be discharged home and follow-up with [facility] going forward Inpatient E&M: [id number] Subs Hosp L2
[2020-06-18 11:33] VITALS: PULSE 77
[2020-06-18 13:25] VITALS: BP 114/80; PULSE 67; RESP 16; TEMP 36.6; O2SAT 98
== END 2020-06-18 10:36 | disposition home or self-care (01) ==
LOC: ED 17:01 → PCU 17:18
PROVIDERS: Internal Medicine Cardiovascular Disease; Admitting Provider Internal Medicine; Emergency Provider Emergency Medicine; PCP Family Medicine
DX: I47.1 Supraventricular tachycardia (principal); I20.8 Other forms of angina pectoris; E78.5 Hyperlipidemia, unspecified; M54.2 Cervicalgia; I10 Essential (primary) hypertension; K58.9 Irritable bowel syndrome, unspecified; F17.290 Nicotine dependence, other tobacco product, uncomplicated; Z82.49 Family history of ischemic heart disease and other diseases of the circulatory system; Z79.899 Other long term (current) drug therapy
CPT/HCPCS: 36415; 71045; 80048; 80061; 83735; 84443; 84484; 85025; 93005; 93017; 93306; 93350; 96372; 96374; 99218; 99251; 99285; A4216; G0378; G0463; J0153

== ENCOUNTER 2020-08-26 22:00 | Emergency (ER) | payer BC, OTHER, SELFPAY ==
[2020-06-16 17:52] VITALS: BMI 27.1
[2020-08-26 22:00] VITALS: BP 135/88; PULSE 94; RESP 20; TEMP 36.3; O2SAT 96; BMI 27.0
--- NOTE | 2020-08-26 22:11 | EKG12_ITS ---
Test Reason : PALPITATIONS Blood Pressure : / mmHG Vent. Rate : 177 BPM Atrial Rate : 166 BPM P-R Int : 000 ms QRS Dur : 080 ms QT Int : 258 ms P-R-T Axes : 000 001 -11 degrees QTc Int : 442 ms Supraventricular tachycardia Nonspecific ST and T wave abnormality Abnormal ECG Confirmed by ASIF VERNON, HEIDI ([id number]), international editorial producer GEMMA JUDD ([id number]) on 08/28/2020 10:34:53 AM Referred By: BENEDICTO Confirmed By:HEIDI GOLD MD
--- NOTE | 2020-08-26 22:13 | EKG12_ITS ---
Test Reason : REPEAT Blood Pressure : / mmHG Vent. Rate : 089 BPM Atrial Rate : 089 BPM P-R Int : 164 ms QRS Dur : 078 ms QT Int : 338 ms P-R-T Axes : 038 -09 -04 degrees QTc Int : 411 ms Normal sinus rhythm Normal ECG Confirmed by ASIF VERNON, HEIDI ([id number]), supervising film or videotape editor GEMMA JUDD ([id number]) on 08/28/2020 10:31:45 AM Referred By: BENEDICTO Confirmed By:HEIDI GOLD MD
--- NOTE | 2020-08-26 22:14 | ED.VISSUMM ---
- ER Visit Summary Date of Service: 08/26/20 Chief Complaint: Palpitations History of Present Illness: The patient is a 54 M who presents with palpitations that began today. Patient states he felt like his heart was racing. Patient states he has a history of SVT. Patient states his heart rate was approximately 200 at home. Patient states he tried vagal maneuvers at home with no improvement. Patient states he ran out of his diltiazem 3 days ago. Patient took one of his daughter's diltiazem which is the same strength as his prescription. Patient states that when he got here his feelings of palpitations have resolved. Patient denies any shortness of breath or cough. Patient denies any pain. Patient denies any fevers or chills. Physical Examination: Vital signs are stable. Patient is afebrile. Patient is in no acute distress. Oral mucosa is pink and moist. Neck is supple. Trachea is midline. There is no JVD noted. Heart was regular and tachycardic. Lungs are clear and equal bilaterally. Abdomen is soft. Bowel sounds are normal. There is no tenderness. There is no rebound or guarding noted. Skin is warm dry. Cranial nerves II through XII are intact. There are no focal motor or sensory deficits noted. Extremities are intact. There is no calf tenderness or edema. Test Results: EKG showed supraventricular tachycardia with a rate of 177. There are no acute ST or T wave changes noted. Other than the rate, this was unchanged compared to previous EKG dated 06/16/2020. Repeat EKG showed normal sinus rhythm with a rate of 89. There are no acute ST or T wave changes. CBC, basic metabolic profile, and troponin were obtained were all within normal limits. Emergency Department Course and Treatment: Patient given 6 mg of adenosine which slowed his heart rate down and then he went back to SVT with a rate of 190. Patient was given a dose of 12 mg of adenosine. This converted the patient back to normal sinus rhythm with a heart rate of 98. Patient is feeling better on reevaluation. Patient was given a prescription to refill his Cartia. Patient was instructed to follow-up with his primary care physician in 3 to 5 days. Patient understood and was agreeable with the plan. All questions were answered. Disposition: Discharge home Impression: 1. Supraventricular tachycardia This note was generated with [employer] software. It may contain incorrect words, spelling, and punctuation that were not noted in review of the chart prior to signing ED Disposition - Plan for ED Patient: Disposition: Home or Assisted Living Diagnosis: Supraventricular tachycardia Prescriptions: Diltiazem HCl [Cartia Xt] 240 mg PO DAILY #30 cap.er.24h Transmission Status: Pending to [facility] Referrals: Chase Davila MD [Primary Care Provider] - 3-5 Days
[2020-08-26 22:16] VITALS: PULSE 175; RESP 17; O2SAT 100; O2SAT 98
[2020-08-26] MEDS: Adenosine 6 MG/2 ML Syringe IV (22:22)
[2020-08-26 22:25] LABS: Absolute Lymphocyte Count 2.65 X10^3/uL (0.83-4.51); Absolute Neutrophil Count 3.7 X10^3/uL (2.0-7.7); Basophil# 0.03 X10^3/uL; Basophil% 0.4 % (0-1); Eosinophil# 0.17 X10^3/uL; Eosinophils% 2.3 % (0-5); Hematocrit 46.6 % (40-54); Hemoglobin 15.8 g/dL (13.0-16.5); Lymphocyte # 2.65 X10^3/ul (4.0); Lymphocyte % 36.6 % (19-41); Mean Corp Hgb Conc 33.9 g/dL (32-36); Mean Corpuscular Hgb 31.3 pg (27.0-32.0); Mean Corpuscular Volume 92.3 fL (80-94); Mean Platelet Vol. 9.3 fl (6.2-12.0); Monocyte# 0.68 X10^3/uL; Monocyte% 9.4 % (0-10); NRBC Flagged by Analyzer 0 % (0-5); Platelet Count 259 K/mm3 (150-450); RBC Distribution Width SD 40.7 fl (35.1-43.9); Red Blood Count 5.05 M/mm3 (4.6-6.2); White Blood Count 7.3 K/mm3 (4.4-11.0)
[2020-08-26] MEDS: 0.9% Normal Saline 1,000 ML 1000 ML IV (22:26)
[2020-08-26] MEDS: Adenosine 6 MG/2 ML Syringe 12 MG IV (22:28)
--- NOTE | 2020-08-26 22:35 | RAD_ITS ---
STUDY: X-RAY CHEST REASON FOR EXAM: Male, 54 years old. palpitations TECHNIQUE: Single AP portable view of the chest. COMPARISON: 06/16/2020. FINDINGS: The lungs are clear and expanded. There is no demonstrated pleural abnormality. Normal size heart. Normal mediastinum and jay. Normal visualized pulmonary arteries. Normal visualized aortic arch and descending thoracic aorta. Normal visualized thoracic spine. Normal visualized ribs, clavicles, and shoulders. There is no demonstrated abnormality of the visualized soft tissue structures of the upper abdomen. RAD/Chest 1 View (Portable) IMPRESSION: Normal x-ray examination of the chest. Electronically Signed: Keaton Sorensen MD at 22:46 EDT , Service support ,
[2020-08-26] MEDS: Aspirin 81 MG TAB.CHEW 324 MG PO (22:38)
[2020-08-26 22:40] VITALS: BP 158/120; PULSE 95; RESP 17; O2SAT 97
[2020-08-26 22:41] LABS: Anion Gap 3 (5-15); BUN 23 mg/dL (7-18); Calcium,Total 8.9 mg/dL (8.5-10.1); Chloride 107 mmol/L (98-107); EST Glomerular Filtration Rate 82 mL/min (>60); Est Glom Filt Rate - Afr Amer 99 mL/min (>60); Estimated Creatinine Clearance 86.18 ml/min; Glucose 126 mg/dL (74-106); Sodium Level 142 mmol/L (136-145)
[2020-08-26 23:32] VITALS: BP 159/100; PULSE 80; RESP 16; O2SAT 99
== END 2020-08-26 23:34 | disposition home or self-care (01) ==
PROVIDERS: Emergency Provider Emergency Medicine; PCP Family Medicine
DX: I47.1 Supraventricular tachycardia (principal); K58.9 Irritable bowel syndrome, unspecified; G47.30 Sleep apnea, unspecified; F17.290 Nicotine dependence, other tobacco product, uncomplicated; Z79.82 Long term (current) use of aspirin; Z79.899 Other long term (current) drug therapy
CPT/HCPCS: 71045; 80048; 84484; 85025; 93005; 96361; 96374; 99283; J7030; J0153

== ENCOUNTER → 2021-01-04 19:00 | Outpatient (CLI) | payer BC, SELFPAY ==
[2020-09-06 11:29] VITALS: BMI 27.2
== END ==
PROVIDERS: PCP Family Medicine; Referring Provider Internal Medicine Cardiovascular Disease; Visit Provider Internal Medicine Cardiovascular Disease
DX: Z01.812 Encounter for preprocedural laboratory examination (principal)
CPT/HCPCS: 87635; C9803; U0002

== ENCOUNTER → 2023-01-28 | Outpatient (CLI) | payer BC, SELFPAY ==
--- NOTE | 2023-01-28 09:13 | RAD_ITS ---
STUDY: XR Knee Complete 4 Views or More 01/28/2023 3:12 PM REASON FOR EXAM: Male, 57 years old. PAIN TECHNIQUE: XR Knee Complete 4 Views or More LEFT COMPARISON: None FINDINGS: Normal visualized distal femur. Normal visualized proximal tibia and fibula. Normal proximal tibiofibular articulation. There is mild degenerative arthrosis of the medial femorotibial compartment. Normal lateral femorotibial compartment. Normal patellofemoral articulation. The soft tissue structures are unremarkable. RAD/Knee 4 or More Views IMPRESSION: There is mild degenerative arthrosis of the medial femorotibial compartment. Electronically Signed: Stefan Nuñez MD at 15:13 EDT ,
--- NOTE | 2023-01-28 09:13 | RAD_ITS ---
STUDY: X-RAY - CERVICAL SPINE REASON FOR EXAM: Male, 57 years old. CERVICAL RADICULOPATHY TECHNIQUE: XR Spine Cervical 4 or 5 Views COMPARISON: 16 FINDINGS: Normal anterior atlantoaxial articulation. No acute findings of the odontoid process. There is straightening of the normal cervical lordosis. There is multi-level endplate spondylosis. There is multi-level degenerative disc disease with multilevel disc space narrowing. There is multi-level osseous foraminal stenosis. The soft tissue structures are unremarkable. RAD/Cerv Spine 4 or 5 Views IMPRESSION: There are degenerative changes as noted above. There is mild straightening of the normal cervical lordosis. This can suggest neck strain. Electronically Signed: Stefan Nuñez MD at 20:00 EDT ,
--- NOTE | 2023-01-28 09:13 | RAD_ITS ---
EXAM: XR RIGHT KNEE, 3 VIEWS CLINICAL INDICATION: PAIN TECHNIQUE: Three views of the right knee. This report was created using [facility] report generation technology. COMPARISON: None. FINDINGS: BONES/JOINTS: Up to moderate degenerative changes at the medial femorotibial compartment. Small amount of suprapatellar joint fluid. No acute or healing fracture or malalignment. No unusual lytic or sclerotic lesions of bone. SOFT TISSUES: Soft tissues are otherwise unremarkable. No soft tissue swelling or gas. No radiopaque foreign body. RAD/Knee 4 or More Views IMPRESSION: Up to moderate degenerative changes at the medial femorotibial compartment. Electronically Signed: Walter Hines MD at 3:57 EDT ,
[2023-01-28 11:34] LABS: Anion Gap 6 (5-15); BUN 20 mg/dL (7-18); BUN/Creat Ratio 26.8 RATIO (10-20); Calcium,Total 8.6 mg/dL (8.5-10.1); Chloride 108 mmol/L (98-107); Cholesterol 208 mg/dL (200); Creatinine, Serum 0.75 mg/dL (0.70-1.30); EST Glomerular Filtration Rate 114 mL/min (>60); Est Glom Filt Rate - Afr Amer 138 mL/min (>60); Glucose 103 mg/dL (74-106); High Density Lipoprotein 56 mg/dL; PSA,Total- Diagnostic 0.34 ng/mL (0.0-4.0); Sodium Level 140 mmol/L (136-145); Triglycerides 185 mg/dL; Very Low Density Lipoprotein 37 mg/dL (5-40)
== END | disposition home or self-care (01) ==
LOC: MTLAB 09:10
PROVIDERS: PCP Family Medicine; Visit Provider Family Medicine
DX: Z00.00 Encounter for general adult medical examination without abnormal findings (principal); M54.12 Radiculopathy, cervical region; M25.561 Pain in right knee; M25.562 Pain in left knee
CPT/HCPCS: 36415; 72050; 73564; 80048; 80061; 84153; 84403

== ENCOUNTER → 2023-03-12 | Outpatient (CLI) | payer SELFPAY ==
--- NOTE | 2023-03-12 12:02 | CT_ITS ---
INDICATION: CARDIAC RISK COUNSELING. Calcium score over read examination. EXAMINATION: CT CHEST WITHOUT CONTRAST - CT Chest W/O Contrast Injection TECHNIQUE: Helically acquired images were obtained of the chest. A radiation dose optimization technique was used for this scan. IV Contrast dosage and agent: None. COMPARISON: None. FINDINGS: LUNGS, PLEURA AND LARGE AIRWAYS: No masses, consolidation, or edema. No pleural effusion or thickening. No pneumothorax. THYROID: No thyroid lesions. HEART AND PERICARDIUM: Heart size is normal. No pericardial effusion. CORONARY ARTERIES: Coronary artery calcification is seen. VESSELS: Thoracic aorta is not dilated. MEDIASTINUM AND JESSICA: Small benign-appearing mediastinal lymph nodes. Esophagus is unremarkable. No hiatal hernia. UPPER ABDOMEN: Small cyst in the dome of the right lobe of the liver. BONES: Degenerative changes of the visualized dorsal spine. CT/Limited Chest CT Cardiac Only IMPRESSION: Mild coronary artery calcification. Electronically Signed: Piero Verma MD at 15:24 EDT ,
--- NOTE | 2023-03-12 17:04 | CA.SCORE ---
Calcium Scoring Date of Study:: 03/12/23 Indications Indications: Cardiac risk counseling Coronary Calcium Scoring: High-resolution Computed Tomographic imaging of the chest was performed on [03/12/2023], with particular attention paid to the coronary arteries. Images from the examination were analyzed for the presence and extent of coronary artery calcification , using coronary calcium quantification software. The patient tolerated the procedure well and there were no complications. The results of the coronary calcification analysis are provided below. Findings Coronary Artery Left Main (LM): 0 Left Anterior Descending (LAD): 0 Left Circumflex (LCX): 0 Right Coronary Artery (RCA): 0 Total Agatston Score: 0 Percentile Rankin percentile Calcium Scoring Interpretation: Different methods to categorize the overall amount of coronary plaque. Overall amount CAC SIS Visual of coronary plaque P1 Mild -100 <2 1-2 vessels with mild amount of plaque P2 Moderate 101-300 3-4 1-2 vessels with moderate amount, 3 vessels with mild amount of plaque P3 Severe 301-999 5-7 3 vessels with moderate amount, 1 vessel with severe amount of plaque P4 Extensive >1000 >8 2-3 vessels with severe amount of plaque Conclusion: No significant atherosclerotic plaquing noted.
== END | disposition home or self-care (01) ==
LOC: CT 12:01
PROVIDERS: PCP Family Medicine; Referring Provider Family Medicine; Visit Provider Family Medicine
DX: Z71.89 Other specified counseling (principal)
CPT/HCPCS: 75571; 76380

== ENCOUNTER → 2024-02-15 | Outpatient (CLI) | payer BC, SELFPAY ==
[2024-02-15 13:18] LABS: Anion Gap 5 (5-15); BUN 19 mg/dL (7-18); BUN/Creat Ratio 20.9 RATIO (10-20); Calcium,Total 8.7 mg/dL (8.5-10.1); Chloride 109 mmol/L (98-107); Cholesterol 215 mg/dL (200); Creatinine, Serum 0.91 mg/dL (0.70-1.30); EST Glomerular Filtration Rate 91 mL/min (>60); Est Glom Filt Rate - Afr Amer 110 mL/min (>60); Glucose 108 mg/dL (74-106); High Density Lipoprotein 57 mg/dL; Potassium 4.3 mmol/L (3.5-5.1); Sodium Level 142 mmol/L (136-145); Triglycerides 211 mg/dL; Very Low Density Lipoprotein 42 mg/dL (5-40)
== END | disposition home or self-care (01) ==
LOC: MFPLAB 09:35
PROVIDERS: PCP Family Medicine; Visit Provider Family Medicine
DX: I10 Essential (primary) hypertension (principal)
CPT/HCPCS: 36415; 80048; 80061

== ENCOUNTER → 2024-04-27 | Outpatient (CLI) | payer BC, SELFPAY ==
--- NOTE | 2024-04-27 12:10 | STRESSREP_ITS ---
Stress Test Report Date: 04/27/2024 Procedure: Exercise tolerance test/imaging study Indications: Dyspnea Consent: Per the patient Procedure: The patient exercised on a Todd protocol for 5 minutes achieving a peak heart rate of 137 bpm (84% predicted maximal heart rate) with a peak blood pressure 166/92 mmHg and a peak MET capacity of 7.0 METs. The baseline ECG demonstrated sinus rhythm. The peak exercise ECG demonstrated no ischemic changes. Frequent PVCs noted during exercise, mostly in a bigeminal manner. The functional capacity was considered below average. There was no complaint of chest discomfort but arm weakness was reported. The examination was discontinued secondary to target heart rate being achieved and frequent arrhythmia. The patient was injected with 13.5 mCi of technetium 99m Cardiolite and subsequently rest SPECT Cardiolite nuclear imaging was obtained in the horizontal long, vertical long, and short axis views. Post-exercise, the patient was injected with 40.6 mCi of technetium 99m Cardiolite and subsequently stress SPECT Cardiolite nuclear imaging was obtained in the horizontal long, vertical long, and short axis views. A gated Cardiolite study at peak stress was obtained. Rest and stress SPECT Cardiolite nuclear imaging status post realignment, normalization, and attenuation correction, demonstrates the appearance of relative uniform tracer uptake and myocardial perfusion appearing within normal limits. There is end systolic thickening and brightening. The gated Cardiolite study demonstrates myocardial thickening and inward wall motion. The reported LVEF is 60%. Impression: 1. Technically adequate (percent predicted maximal heart rate greater than 85%) exercise tolerance test 2. Peak exercise ECG with no ischemic changes 3. Significant arrhythmia burden with frequent PVCs during exercise, mostly in a bigeminal manner 4. Rest and stress SPECT Cardiolite nuclear imaging demonstrate relative uniform tracer uptake and myocardial perfusion appearing within normal limits. 5. The gated Cardiolite study reports an LVEF of 60%. This note was generated with [employer] software. It may contain incorrect words, spelling, and punctuation that were not noted in checking the note before signing.
== END | disposition home or self-care (01) ==
PROVIDERS: PCP Family Medicine; Referring Provider Family Medicine; Visit Provider Family Medicine
DX: R06.02 Shortness of breath (principal)
CPT/HCPCS: 78452; 93017; A9500; A4216

== ENCOUNTER → 2024-06-21 | Outpatient (CLI) | payer BC, SELFPAY ==
[2024-06-21 11:32] LABS: ALB/GLOB Ratio 1.2 RATIO (0.9-2.4); AST(SGOT) 15 U/L (15-37); Alanine Aminotransfer ALT/SGPT 29 U/L (16-61); Albumin, Serum 3.8 g/dL (3.2-5.0); Alkaline Phosphatase 74 U/L (45-117); Anion Gap 5 (5-15); BUN 26 mg/dL (7-18); BUN/Creat Ratio 31.1 RATIO (10-20); Calcium,Total 9.1 mg/dL (8.5-10.1); Chloride 106 mmol/L (98-107); Creatinine, Serum 0.84 mg/dL (0.70-1.30); EST Glomerular Filtration Rate 100 mL/min (>60); Est Glom Filt Rate - Afr Amer 121 mL/min (>60); Globulin 3.2 g/dL (2.2-4.2); Glucose 105 mg/dL (74-106); Magnesium 2.4 mg/dL (1.6-2.6); Potassium 4.1 mmol/L (3.5-5.1); Sodium Level 138 mmol/L (136-145)
== END | disposition home or self-care (01) ==
LOC: LAB 10:13
PROVIDERS: PCP Family Medicine; Referring Provider Internal Medicine Cardiovascular Disease; Visit Provider Internal Medicine Cardiovascular Disease
DX: R06.09 Other forms of dyspnea (principal); E78.5 Hyperlipidemia, unspecified; Z86.79 Personal history of other diseases of the circulatory system; I49.3 Ventricular premature depolarization; I20.89 Other forms of angina pectoris; I10 Essential (primary) hypertension
CPT/HCPCS: 36415; 80053; 83735; 84443

== ENCOUNTER → 2024-07-21 | Outpatient (CLI) | payer BC, SELFPAY ==
--- NOTE | 2024-07-21 10:04 | ECHOD_ITS ---
Reason For Study: Dyspnea/SOB Procedure This was a 2D Doppler, Color Flow transthoracic echocardiogram. Exam performed in department. Left Ventricle Normal size and thickness. The left ventricular ejection fraction is 60 %. No evidence for diastolic dysfunction. Right Ventricle Normal right ventricle. Atria The left and right atria are normal. Mitral Valve Trivial mitral valve insufficiency. Tricuspid Valve Mild tricuspid valve insufficiency. Right ventricular systolic pressure estimated to be 38 mmHg. Aortic Valve Trisinus/trileaflet aortic valve. There is no aortic stenosis. Pulmonic Valve The pulmonic valve is not well visualized. Great Vessels Normal sized aortic root. Pericardium/Pleural No pericardial effusion. MMode/2D Measurements & Calculations LVIDd: 5.4 cm IVSd: 0.99 cm LVOT diam: 2.3 cm LVIDs: 3.3 cm LVPWd: 0.97 cm LVOT area: 4.3 cm2 RVDd: 3.2 cm FS: 38.3 % Ao root diam: 3.4 cm LAV(MOD-bp): 55.4 ml LVAd ap4: 32.6 cm2 LA dimension: 3.9 cm LAV(MOD-bp) Indexed: 27.1 ml/m2 LVLd ap4: 7.6 cm LAV(MOD-sp2): 43.1 ml EDV(MOD-sp4): 117.0 ml LAV(MOD-sp4): 57.2 ml EDV(sp4-el): 118.7 ml LVAs ap4: 20.2 cm2 LVLs ap4: 6.8 cm ESV(MOD-sp4): 50.8 ml ESV(sp4-el): 50.8 ml EF(MOD-sp4): 56.6 % EF(sp4-el): 57.2 % SV(MOD-sp4): 66.2 ml SV(sp4-el): 67.9 ml Ao sinus diam: 3.[address] Junction: 3.1 cm LA A4 area: 20.7 cm2 RA A4 area: 20.7 cm2 TAPSE: 2.8 cm Time Measurements MV dec time: 0.26 sec Doppler Measurements & Calculations MV E max glen: 53.6 cm/sec Lat Peak E' Glen: 7.7 cm/sec Med Peak E' Glen: 8.9 cm/sec MV A max glen: 64.9 cm/sec E/E' lat: 7.0 E/E' med: 6.0 MV E/A: 0.83 MV V2 max: 76.5 cm/sec MV P1/2t max glen: 64.3 cm/sec Ao V2 max: 127.7 cm/sec MV max P.3 mmHg MV P1/2t: 94.5 msec Ao max P.5 mmHg MV V2 mean: 34.5 cm/sec MV dec slope: 199.3 cm/sec2 Ao V2 mean: 82.8 cm/sec MV mean P.59 mmHg Ao mean P.3 mmHg MV V2 VTI: 29.4 cm MVA(P1/2t): 2.3 cm2 Ao V2 VTI: 27.3 cm DIANA(V,D): 3.1 cm2 LV V1 max: 93.1 cm/sec TR max glen: 242.2 cm/sec LV V1 max P.5 mmHg TR max P.5 mmHg ECHO/Echo Complete Interpretation Summary The left ventricular ejection fraction is 60 %. Mild tricuspid valve insufficiency. Right ventricular systolic pressure estimated to be 38 mmHg. Ordering Physician: Natalia Osborn Referring Physician: Natalia Osborn Performed By: Maxi Valderrama RCS
== END | disposition home or self-care (01) ==
LOC: CVS 10:02
PROVIDERS: PCP Family Medicine; Referring Provider Internal Medicine Cardiovascular Disease; Visit Provider Internal Medicine Cardiovascular Disease
DX: R06.09 Other forms of dyspnea (principal); I49.3 Ventricular premature depolarization; I10 Essential (primary) hypertension; E78.00 Pure hypercholesterolemia, unspecified; Z86.79 Personal history of other diseases of the circulatory system
CPT/HCPCS: 93306

== ENCOUNTER 2024-07-23 10:06 | Emergency (ER) | payer BC, SELFPAY ==
[2024-07-23 10:07] VITALS: BP 132/84; PULSE 83; RESP 14; TEMP 36.3; O2SAT 97; BMI 24.6
--- NOTE | 2024-07-23 10:39 | EDS_ITS ---
HPI History of Present Illness Chief Complaint: Male Pain/Injury Detail of Chief Complaint: Concern for penile fracture. Informant: patient Pain Onset: Yesterday Narrative Narrative: 58-year-old male has erectile dysfunction. He is on no blood thinners. Last night he was having intercourse. Said he felt a pop. Denies any pain now or at the time. Said he finished intercourse. Today has had significant penile shaft bruising. Denies any other complaints. He can urinate. Again denies any pain. Prior similar symptoms: No Recent Illness/Hospitalization: No [facility] Medical History Cervical radiculopathy Anxiety PRIETO (obstructive sleep apnea) Pure hypercholesterolemia Essential hypertension Dyslipidemia Anginal equivalent Supraventricular tachycardia Irritable bowel syndrome Home Medications ?Medication ?Instructions ?Recorded ?Last Taken ?Type cholestyramine-aspartame 4 gram 4 g PO DAILY cholestrol 08/07/15 06/16/20 History oral powder pravastatin 20 mg tablet 20 mg PO QHS #30 tabs 07/20/20 Unknown Rx amlodipine 5 mg tablet 5 mg PO DAILY 05/19/24 Unknown History buspirone 7.5 mg tablet 7.5 mg PO BID 05/19/24 Unknown History clonazepam 0.5 mg tablet (Klonopin) 0.5 mg PO QHS 05/19/24 Unknown History dicyclomine 20 mg tablet 20 mg PO TID PRN 05/19/24 Unknown History duloxetine 60 mg capsule,delayed 60 mg PO DAILY 05/19/24 Unknown History release (Cymbalta) lisinopril 20 1 tab PO DAILY 05/19/24 Unknown History mg-hydrochlorothiazide 25 mg tablet meloxicam 15 mg tablet 15 mg PO DAILY 05/19/24 Unknown History trazodone 100 mg tablet 100 mg PO QHS 05/19/24 Unknown History Allergy/AdvReac Type Severity Reaction Status Date / Time No Known Allergies Allergy Verified 07/23/24 10:07 Family History Other Heart disease Surgical History History of radiofrequency ablation procedure for cardiac arrhythmia (~01/09/21) History of arthroscopy of right knee History of herniorrhaphy Social History Smoking Status: Light Smoker (<10/day) alcohol intake: current details: occasional substance use type: does not use caffeine: Yes Type: coffee Number of servings: 2 ROS ROS ED ROS Narrative Denies recent illness. Constitutional Constitutional ED: Denies fever(s) Eyes Eyes: Denies blurry vision ENT ENT ED: Denies ear pain Cardiovascular Cardiovascular: Denies chest pain Respiratory/Chest Respiratory/Chest: Denies cough Gastrointestinal Gastrointestinal: Denies abdominal pain Genitourinary Genitourinary ED: Denies dysuria, hematuria or urinary frequency Musculoskeletal Musculoskeletal: Denies arthralgias Integumentary Denies abscess Neurologic Neurologic: Denies headache(s) Psychiatric Psychiatric: Denies anxiety or depression Endocrine Endocrinology: Denies polydipsia Hematologic/Lymphatic Hematologic/Lymphatic: Denies easy bleeding Allergic/Immunologic Allergic/Immunologic ED: Denies mouth swelling EXAM Physical Exam Narrative Exam Narrative: Is a 8-year-old male vital signs stable afebrile. H EENT exam unremarkable. Lungs clear. Heart regular rhythm rate about 80 no murmur. Abdomen soft nontender. Moving all 4 extremities. Nontender no edema. He is awake and alert. No focal motor deficits. External exam circumcised male. He has bruising of his penile shaft. Scrotum nontender. Penile shaft nontender. There is no inguinal lymphadenopathy. No cellulitis. Skin is intact. Mild swelling. Const Vital Signs: 07/23/24 10:07 Temperature 97.3 F L Temperature Source Temporal Pulse Rate 83 Respiratory Rate 14 Blood Pressure 132/84 H Blood Pressure Mean 100 Pulse Ox 97 Oxygen Delivery Method Room Air Positive well nourished and well developed; Negative for obese, cachectic, contractures or unkempt General Appearance ED: well developed and NAD; Negative for unkempt, cachectic, contractures or pallor Nutritional Appearance: Negative for cachectic or obese HEENT Reports moist mucous membranes; Denies dry mucous membranes normocephalic and atraumatic; Negative for trauma or tenderness Mouth ED: No dry mucous membranes Mouth: No dry mucous membranes Eyes PERRL and EOMs intact bilaterally General Eye ED: Negative for pale conjunctiva or scleral icterus Neck no lymphadenopathy, supple and no JVD General: Negative for tenderness Resp normal respiratory effort and clear to auscultation bilaterally Effort and Inspection: Negative for retractions Auscultation: Negative for rales, rhonchi, wheezes or diminished lung sounds Cardio regular rate, regular rhythm, S1 normal heart sound, S2 normal heart sound and no murmurs Rate: Negative for bradycardia or tachycardic Rhythm: Negative for abnormal rhythm Heart Sounds: Negative for other GI non-tender, non-distended and no masses Inspection: Negative for abdominal distention Auscultation: normoactive bowel sounds Palpation: soft; Negative for tender or guarding no CVA tenderness Narrative: Circumcised male. Bruising around penile head and penile shaft. Mild swelling. Nontender. No cellulitis. Scrotum and testicles are nontender and intact. No inguinal lymphadenopathy. Bladder / Kidney Exam: No CVA tenderness Groin / Perineum Exam: Negative for edema or lesions Back/Spine no CVA tenderness General Back: Negative for CVA tenderness Cervical Spine: Negative for cervical spine tenderness Thoracic Spine / Upper Back: Negative for thoracic spinal tenderness Lumbar Spine / Lower Back: Negative for lumbar spinal tenderness Extremity normal to inspection General Extremety ED: Negative for edema or pulses abnormal General Extremity: Negative for edema or pulses abnormal Neuro oriented x3, CN's II-XII intact bilaterally, moves all extremities and no focal motor deficits Sensorium / Orientation: alert, oriented to person, oriented to place and oriented to time Motor Exam: strength 5/5 throughout Psych mental status grossly normal Appearance: Negative for unkempt Attitude: No agitated Mood & Affect: Negative for depressed, anxious or tearful Thought Process: normal thought process Thought Content: normal thought content Skin General Skin Exam: Negative for jaundice or pallor Lesions: no lesions Rashes: no rashes Trauma: Negative for abrasion, laceration or puncture MDM MDM MDM Narrative Medical decision making narrative: 58-year-old male with penile bruising after intercourse last night. History of erectile dysfunction. Concern for hematoma versus penile fracture. Repeat exam 11:35 AM unchanged. I did speak to urology on-call at the [facility]. She discussed possible penile ultrasound versus MRI. Neither is available at this campus. I spoke to the railway signal technician and they do not do that specific type of ultrasound noted she is at training. I discussed that with the patient I offered him transferred both the [facility] to his urologist I spoke to or Ирина Carrillo. He does not want to do either. He is not having any pain. He is not having any hematuria grossly. He had already discussed with his urologist at [facility] in the past about a penile implant due to no erectile dysfunction. He will follow-up with that person. He understands the issue with possible cosmetic appearance and/or worsening erectile function as well and take that risk. History & Record Review Discussion w/independent historian: Patient Discharge Plan Triage Chief Complaint: Male Pain/Injury ED Provider: Isaías Nieves Dx/Rx/DC Orders Clinical Impression: Hematoma of penis, Fracture of corpus cavernosum penis Instructions: ED Hematoma Prescriptions: No Action meloxicam 15 mg tablet 15 mg PO DAILY buspirone 7.5 mg tablet 7.5 mg PO BID amlodipine 5 mg tablet 5 mg PO DAILY lisinopril-hydrochlorothiazide 20-25 mg tablet 1 tab PO DAILY duloxetine [Cymbalta] 60 mg capsule,delayed release(DR/EC) 60 mg PO DAILY clonazepam [Klonopin] 0.5 mg tablet 0.5 mg PO QHS Rx Instructions: administer 30 minutes before bedtime trazodone 100 mg tablet 100 mg PO QHS dicyclomine 20 mg tablet 20 mg PO TID PRN Rx Instructions: before meals and bedtime as needed cholestyramine-aspartame 210 GM powder 4 g PO DAILY pravastatin 20 mg tablet 20 mg PO QHS Qty: 30 11RF Primary Care Provider: Chase Davila Referrals: Chase Davila MD [Primary Care Provider] - Activity Restrictions/Additional Instructions: Possible penile fracture versus hematoma. As we discussed this is a fracture could cause worsening erectile dysfunction or cosmetic appearance. Follow-up with your urologist as soon as possible for further evaluation. Very important in case this was need any type of surgical intervention. Print Language: Citizen Of [place] Disposition Disposition: Home, Self Care
[2024-07-23 12:21] VITALS: BP 124/69; PULSE 81; RESP 16; TEMP 36.4; O2SAT 98
== END 2024-07-23 12:22 | disposition home or self-care (01) ==
PROVIDERS: Emergency Provider Emergency Medicine; PCP Family Medicine; Visit Provider Emergency Medicine
DX: S39.840A Fracture of corpus cavernosum penis, initial encounter (principal); S30.21XA Contusion of penis, initial encounter; X58.XXXA Exposure to other specified factors, initial encounter; Y93.89 Activity, other specified; I10 Essential (primary) hypertension; E78.00 Pure hypercholesterolemia, unspecified; F17.200 Nicotine dependence, unspecified, uncomplicated; Z79.899 Other long term (current) drug therapy
CPT/HCPCS: 99282

== ENCOUNTER → 2024-11-28 | Outpatient (CLI) | payer BC, SELFPAY ==
[2024-11-28 11:16] LABS: ALB/GLOB Ratio 1.2 RATIO (0.9-2.4); AST(SGOT) 13 U/L (15-37); Alanine Aminotransfer ALT/SGPT 26 U/L (16-61); Albumin, Serum 3.8 g/dL (3.2-5.0); Alkaline Phosphatase 74 U/L (45-117); Anion Gap 5 (5-15); BUN 23 mg/dL (7-18); BUN/Creat Ratio 24.6 RATIO (10-20); Chloride 106 mmol/L (98-107); Cholesterol 214 mg/dL (200); Creatinine, Serum 0.93 mg/dL (0.70-1.30); EST Glomerular Filtration Rate 88 mL/min (>60); Est Glom Filt Rate - Afr Amer 106 mL/min (>60); Globulin 3.1 g/dL (2.2-4.2); Glucose 112 mg/dL (74-106); High Density Lipoprotein 58 mg/dL; PSA,Total - Annual Screen 0.56 ng/mL (0.00-4.00); Protein, Total 6.9 g/dL (6.4-8.2); Sodium Level 139 mmol/L (136-145); Triglycerides 296 mg/dL; Very Low Density Lipoprotein 59 mg/dL (5-40)
== END | disposition home or self-care (01) ==
LOC: MFPLAB 09:16
PROVIDERS: PCP Family Medicine; Referring Provider Family Medicine; Visit Provider Family Medicine
DX: I10 Essential (primary) hypertension (principal); E78.5 Hyperlipidemia, unspecified; Z12.5 Encounter for screening for malignant neoplasm of prostate
CPT/HCPCS: 36415; 80053; 80061; 84153; G0103

== ENCOUNTER → 2025-05-29 | Outpatient (CLI) | payer BC, SELFPAY ==
[2025-05-29 12:39] LABS: Hematocrit 40.4 % (40-54); Hemoglobin 13.6 g/dL (13.0-16.5); Mean Corp Hgb Conc 33.7 g/dL (32-36); Mean Corpuscular Volume 91.2 fL (80-94); Mean Platelet Vol. 10.2 fl (6.2-12.0); Platelet Count 252 K/mm3 (150-450); RBC Distribution Width CV 12.1 % (11.6-14.6); RBC Distribution Width SD 40.7 fl (35.1-43.9); Red Blood Count 4.43 M/mm3 (4.6-6.2); White Blood Count 4.4 K/mm3 (4.4-11.0)
[2025-05-29 12:40] LABS: Immature Granulocytes Count 0.010 X10^3/uL (0.0-0.0); NRBC Flagged by Analyzer 0 % (0-5)
[2025-05-29 13:47] LABS: AST(SGOT) 20 U/L (<=37); Alanine Aminotransfer ALT/SGPT 24 U/L (<=46); Albumin, Serum 4.4 g/dL (3.4-4.8); Alkaline Phosphatase 70 U/L (40-129); Anion Gap 10 (5-15); BUN 25 mg/dL (4-19); BUN/Creat Ratio 27.8 RATIO (10-20); Calcium,Total 9.5 mg/dL (7.6-11.0); Carbon Dioxide 27.2 mmol/L (21.0-32.0); Chloride 105 mmol/L (98-108); Cholesterol 214 mg/dL (<=200); Globulin 2.1 g/dL (2.2-4.2); Glucose 115 mg/dL (70-99); Low Density Lipoprotein Calc. 120 mg/dL; Potassium 4.3 mmol/L (3.3-5.1); Triglycerides 185 mg/dL; Very Low Density Lipoprotein 37 mg/dL (5-40); cholesterol:hdl ratio screen 3.76
--- OUTSIDE RECORDS SUMMARY | 2025-05-29 20:02 | XMS RPT_ITS | CCD ---
Author Organization [facility] Care Team Providers Care Pharmacy Intake Coordinator Name Role Phone Unavailable Primary Care Provider UnavailChase Rene MD Primary Care Provider CHASE CURIEL Primary Care Unavailable SHEY CHANDRA Attending Unavailable SHEY CHANDRA Attending Unavailable CHASE CURIEL Primary Care Unavailable SHEY CHANDRA Attending Unavailable SHEY CHANDRA Attending Unavailable Dr. Chase Curiel Primary Care Provider [phone] Dr. Chase Curiel Referring Provider [phone] Chase Curiel Other Provider Dr. Cristian Hogan Attending Provider Unavailable Primary Care Provider Unavailbubba CHARLES Referring Unavailable PROMISE GODINEZ Attending Unavailable TAVO GARZA Attending Unavailable TAVO GARZA Attending Unavailable Chase Curiel MD Primary Care Provider Chase Curiel Primary Care Unavailable Anurag, Natalia Attending Unavailable Anurag, Natalia Referring Unavailable Chase Curiel Primary Care Unavailable Anurag, Natalia Referring Unavailable Anurag, Natalia Attending Unavailable Chaes Curiel Primary Care Unavailable Isaías Nieves Attending Unavailable Chase Curiel Primary Care Unavailable Anurag, Natalia Referring Unavailable Anurag, Natalia Attending Unavailable Chase Curiel Referring Unavailable Chase Curiel Attending Unavailable Chase Curiel Primary Care Unavailable Chase Curiel Referring Unavailable Chase Curiel Primary Care Unavailable Anurag, Natalai Attending Unavailable Chase Curiel Referring Unavailable Chase Curiel Primary Care Unavailable Anurag, Natalia Attending Unavailable Chase Curiel Primary Care Unavailable Anurag, Natalia Attending Unavailable Chase Curiel Primary Care Unavailable Franci Cerrato NP Attending Unavailable Chase Curiel Primary Care Unavailable Anurag, Natalia Referring Unavailable Anurag, Natalia Attending Unavailable Curiel, Chase Consulting Unavailable Curiel, Chase Referring Unavailable Curiel, Chase Primary Care Unavailable Anurag, Natalia Attending Unavailable Curiel, Chase Referring Unavailable Curiel, Chase Primary Care Unavailable Anurag, Natalia Attending Unavailable Curiel, Chase Attending Unavailable Curiel, Chase Primary Care Unavailable Curiel, Chase Primary Care Unavailable Curiel, Chase Attending Unavailable Curiel, Chase Referring Unavailable Curiel Chase VERNON Primary Care Provider [phone] CHASE CURIEL Primary Care Unavailable CURIELCHASE LONG Referring Unavailable BRIT NAIDU Attending Unavailabl e CHASE CURIEL Primary Care Unavailable SELF, SELF Referring Unavailable SANDRO BRAGG Attending Unavailable SANDRO BRAGG Referring Unavailable CHASE CURIEL Primary Care Unavailable CHASE CURIEL Primary Care Unavailable BRIANASANDRO WALTON Admitting Unavailable BRIANASANDRO WALTON Attending Unavailable Medications Current Medications Medication Drug Class(es) Dates Sig (Normalized) Sig (Original) amLODIPine 5 mg oral tablet (9 sources) Dihydropyridine Calcium Channel Dinorah Start: 01-09-2025 take 1 tablet by mouth once daily amLODIPine 5 MG tablet Take 1 tablet by mouth daily. 01/09/2025 Active Start: 01-27-2024 take 1 tablet by mouth once am LODIPine (NORVASC) 5 mg tablet Take 1 tablet by mouth every afternoon. 01/27/2024 Active aspirin 81 mg chewable tablet (12 sources) Platelet Aggregation Inhibitor, Nonsteroidal Anti-inflammatory Drug Start: 08-26-2020 take 81 mg by mouth once daily Aspirin Active 81 MG PO DAILY@0800 August 26, 2020 12:00am busPIRone hydrochloride 7.5 mg oral tablet (7 sources) Start: 01-27-2024 take 1 tablet by mouth every twelve hours busPIRone (BUSPAR) 7.5 mg tablet Take 1 tablet by mouth every 12 hours. 01/27/2024 Active cholestyramine resin 4000 mg powder for oral suspension (20 sources) Bile Acid Sequestrant Start: 08-07-2015 take 4 g by mouth once daily Cholestyramine- Aspartame Active 4 GM PO DAILY August 07, 2015 12:00am Start: 05-13-2011 take 1 scoop(s) by m outh once daily Cholestyramine-Aspartame 4 gram ORAL powder Indications: Other and unspecified hyperlipidemia , IBS (irritable bowel syndrome) Take by mouth. 1 scoop daily in 8 oz water 1 Can 11 05/13/2011 Active Start: 12-04-2010 take 1 dose by mouth once daily cholestyramine low-calorie 4 gram ORAL packet One packet daily in 8oz of water. 30 Packet 2 12/04/2010 Active take 1 dose by mouth twice daily cholestyramine light 4 g Pack packet Juan e 1 packet by mouth 2 times daily. Active citalopram 40 mg oral tablet (7 sources) Serotonin Reuptake Inhibitor Start: 12-10-2011 take 1.5 tablets by mouth once daily citalopram (CELEXA) 40 mg ORAL tablet Indications: Depressive disorder, not elsewhere classified Take 1.5 tablets by mouth once daily. 135 tablet 3 12/10/2011 Active clonazePAM 0.5 mg oral tablet (7 sources) Benzodiazepine Start: 12-17-2023 take 1 tablet by mouth once daily at bedtime clonazePAM (KLONOPIN) 0.5 mg tablet Take 0.5 mg by mouth daily at bedtime. 12/17/2023 Active cyclobenzaprine hydrochloride 10 mg oral tablet (7 sources) Muscle Relaxant Start: 02-02-2012 take 1 tablet by mouth at bedtime as needed cyclobenzaprine 10 mg ORAL tablet Indications: Cervicalgia Take 1 tablet by mouth at bedtime as needed. 30 tablet 1 02/02/2012 Active DULoxetine 60 mg delayed release oral capsule (14 sources) Serotonin and Norepinephrine Reuptake Inhibitor Start: 02-12-2024 take 1 capsule by mouth once DULoxetine (CYMBALTA) 60 mg capsule Take 1 capsule by mouth every afternoon. 02/12/2024 Active Start: 08-07-2015 take 30 mg by mouth once daily Duloxetine Active 30 MG PO DAILY August 07, 2015 12:00am famciclovir 500 mg oral tablet (7 sources) Herpes Simplex Virus Nucleoside Analog DNA Polymerase Inhibitor Start: 08-24-2012 famciclovir 500 mg tablet Take 3 tablets on day of cold sore outbreak. 9 tablet 5 08/24/2012 Active hydroCHLOROthiazide 25 mg / lisinopril 20 mg oral tablet (7 sources) Thiazide Diuretic, Angiotensin Converting Enzyme Inhibitor Start: 02-12-2024 take 1 tablet by mouth once lisinopril-hydroC HLOROthiazide (ZESTORETIC) 20-25 mg per tablet Take 1 tablet by mouth every afternoon. 02/12/2024 Active meloxicam 15 mg oral tablet (7 sources) Nonsteroidal Anti-inflammatory Drug Start: 02-15-2024 take 1 tablet by mouth once meloxicam (MOBIC) 15 mg tablet Take 1 tablet by mouth every afternoon. 02/15/2024 Active Multivitamin preparation (3 sources) Start: 08-07-2015 Multivitamin Active 1 EACH PO DAILY August 07, 2015 12:00am multivitamin tablet (7 sources) take 1 tablet by mouth once daily multivitamin tablet Take 1 tablet by mouth once daily. Active take 1 tablet by mouth once katy y multivitamin tablet Take 1 tablet by mouth once daily. 0 Active multivitamin w/ minerals tablet (2 sources) take 1 tablet by mouth once daily multivitamin w/ minerals tablet Take 1 tablet by mouth daily. Active multivitamin with minerals tablet (2 sources) take 1 tablet by mouth once daily multivitamin with minerals tablet Take 1 tablet by mouth daily . 0 Active pravastatin sodium 20 mg oral tablet (17 sources) HMG-CoA Reductase Inhibitor Start: take 1 tablet by mouth once pravastatin (PRAVACHOL) 20 mg tablet Take 1 tablet by mouth every afternoon. 02/10/2024 Active Start: 06-18-2020 End: 07-20-2020 take 20 mg by mouth at bedtime Pravastatin Active 20 M G PO AT BEDTIME July 20, 2020 12:00am sildenafil 100 mg oral tablet (9 sources) Phosphodiesterase 5 Inhibitor Start: 02-22-2024 take 1 tablet by mouth once daily as needed sildenafil (VIAGRA) 100 mg tablet Take 1 tablet by mouth once daily as needed. Take 30-60 minutes before sexual activity on an empty stomach 30 tablet 3 02/22/2024 Active Start: 06-09-2022 End: 12-07-2022 take 1 tablet by mouth once daily as needed sildenafiL (VIAGRA) 50 MG tablet Indications: Mixed erectile dysfunction , Peyronie disease Take 1 (one) tablet (50 mg total) by mouth daily as needed for erectile dysfunction . 18 tablet 0 09/08/2022 12/07/2022 Active traZODone hydrochloride 100 mg oral tablet (14 sources) Serotonin Reuptake Inhibitor Start: 04-10-2024 take 1 tablet by mouth once daily at bedtime traZODone (DESYREL) 100 mg tablet Take 100 mg by mouth daily at bedtime. 02/10/2024 Active Start: 04-30-2022 take 1 tablet by ventura th once daily traZODone (DESYREL) 100 MG tablet Take 100 mg by mouth nightly . 0 04/30/2022 Active Start: 08-07-2015 take 50 mg by mouth at bedtime Trazodone Active 50 MG PO AT BEDTIME August 07, 2015 12:00am Vacuum Erection Device Syste m kit (3 sources) Start: 07-27-2024 Vacuum Erectio n Device System kit Use as directed. 1 Kit 07/27/2024 Active Completed/Discontinued Medications Medication Drug Class(es) Dates Sig (Normalized) Sig (Original) 1 ml alprostadil 0.02 mg/ml cartridge (2 sources) Prostaglandin Analog, Prostaglandin E1 Agonist Start: 02-26-2024 End: 02-26-2024 alprostadil 20 mcg injection (CAVERJECT) amoxicillin 500 mg oral capsule (3 sources) Penicillin-class Antibacterial Start: 08-26-2020 End: 09-06-2020 take 500 mg by mouth twice daily Amoxicillin Discontinued 500 MG PO TWICE A DAY August 26, 2020 12:00am September 06, 2020 12:36pm 24 hr dilTIAZem hydrochloride 120 mg extended release oral capsule (14 sources) Calcium Channel Dinorah Start: 08-26-2020 End: 09-06-2020 take 240 mg by mouth once daily Diltiazem Hcl Discontinued 240 MG PO DAILY August 26, 2020 12:00am September 06, 2020 12:41pm Start: 06-18-2020 End: 03-06-2021 take 120 mg by mouth once daily Diltiazem Hcl Discontinued 120 MG PO DAILY September 19, 2020 12:50pm March 06, 2021 10:44am PHENYLephrine 0.3-0.8 mg in NaCl 0.9% 0.3-0.8 mL (2 sources) Start: 02-26-2024 End: 02-26-2024 PHENYLephrine 0.3-0.8 mg in NaCl 0.9% 0.3-0.8 mL simvastatin 10 mg oral tablet (3 sources) HMG-CoA Reductase Inhibitor Start: 08-07-2015 End: 06-18-2020 take 10 mg by mouth at bedtime Simvastatin Discontinued 10 MG PO AT BEDTIME August 07, 2015 12:00am June 18, 2020 10:34am terbinafine 250 mg oral tablet (3 sources) Allylamine Antifungal Start: 06-16-2020 End: 03-06-2021 take 250 mg by mouth once daily Terbinafine Hcl Discontinued 250 MG PO DAILY June 16, 2020 12:00am March 06, 2021 10:45am Problems Active Problems Problem Classification Problem Date Documented Date Episodic/Chronic Cardiac dysrhythmias (9 sources) Supraventricular tachycardia; Translations: [Supraventricular tachycardia] Onset: 12-14-2020 06-09-2022 Chronic Coronary atherosclerosis and other heart disease (5 sources) Atypical angina; Translations: [Other forms of angina pectoris] Onset: 10-02-2022 10-02-2022 Chronic Crushing injury or internal injury (3 sources) Laceration of blood vessel of thumb; Translations: [Laceration of blood vessel of left thumb, initial encounter] 02-11-2019 Episodic Disorders of lipid metabolism (15 sources) Hyperlipidemia; Translations: [Hyperlipidemia, unspecified] Onset: 03-12-2009 06-09-2022 Chronic Essential hypertension (5 sources) Essential hypertension; Translations: [Essential (primary) hypertension] Onset: 10-02-2022 10-02-2022 Chronic Mood disorders (9 sources) Depressive disorder; Translations: [Depressive disorder] Onset: 12-13-2010 06-09-2022 Chronic Open wounds of extremities (4 sources) Laceration of left thumb; Translations: [Laceration without foreign body of left thumb without damage to nail, initial encounter] Onset: 10-02-2022 10-02-2022 Episodic Other injuries and conditions due to external causes (4 sources) Rupture of corpus cavernosum of penis; Translations: [Fracture of corpus cavernosum penis, sequela] 07-27-2024 Episodic Other injuries and conditions due to external causes (1 source) Fracture of corpus cavernosum penis, sequela; Translations: [Fracture of corpus cavernosum penis, sequela] Onset: 07-27-2024 Episodic Other male genital disorders (7 sources) Other male erectile dysfunction; Translations: [Impotence of organic origin] Onset: 09-08-2022 Chronic Other male genital disorders (8 sources) Induratio penis plastica; Translations: [Induration penis plastica] Chronic Other male genital disorders (3 sources) Induration penis plastica; Translations: [Induration penis plastica] Onset: 09-08-2022 Chronic Other male genital disorders (2 sources) Secondary erectile dysfunction; Translations: [Male erectile dysfunction, unspecified] 02-22-2024 Chronic Other male genital disorders (5 sources) Male erectile dysfunction, unspecified; Translations: [Erectile dysfunction, unspecified erectile dysfunction type] Onset: 02-22-2024 Chronic Unclassified (2 sources) 3 month follow up Onset: 12-08-2022 Unclassified (2 sources) New Patient; Translations: [New Patient] Onset: 01-23-2025 Past or Other Problems Problem Classification Problem Date Documented Date Episodic/Chronic Conditions associated with dizziness or vertigo (1 source) Dizziness and giddiness; Translations: [Dizziness and giddiness] Onset: 08-16-2024 Episodic Other circulatory disease (1 source) Personal history of other diseases of the circulatory system; Translations: [Personal history of other diseases of the circulatory system] Onset: 08-16-2024 Episodic Other lower respiratory disease (1 source) Other forms of dyspnea; Translations: [Other forms of dyspnea] Onset: 08-11-2024 Episodic Other lower respiratory disease (2 sources) Shortness of breath; Translations: [Shortness of breath] Onset: 05-13-2024 Episodic Residual codes; unclassified (3 sources) History of radiofrequency ablation operation for arrhythmia; Translations: [Other specified postprocedural states] Onset: 12-31-2020 01-23-2021 Episodic Residual codes; unclassified (1 source) Other specified postprocedural states; Translations: [Other specified postprocedural states] Onset: 08-16-2024 Episodic Spondylosis; intervertebral disc disorders; other back problems (8 sources) Neck pain; Translations: [Cervicalgia] Onset: 03-21-2008 10-02-2022 Episodic Superficial injury; contusion (1 source) Unspecified superficial injury of penis, initial encounter; Translations: [Unspecified superficial injury of penis, initial encounter] Onset: 08-16-2024 Episodic Results Test Name Value Interpretation Reference Range Facility Cardiology Visit Reporton Cardiology Visit Report [facility] [address] [place] [address] OFFICE VISIT Date of Service: 02/13/25 MR#: [id number] Acct: [id number] Name: SAQIB BRANNON Rep #: [id number] 07 : 1965 Provider: Dr. Natalia Osborn MD Age/Sex: 59/M Location: [facility] Status: Signed HPI HPI History of Present Illness Details: This gentleman with history of hypertension and SVT status post ablation is here for follow-up visit. Overall doing well. Denies any palpitations. No orthopnea or PND. No chest pains. No shortness of breath. No ankle edema. Intake Vital Signs 08/16/24 08:37 02/13/25 11:40 Height 5 ft 10 in 5 ft 10 in Weight: 190 lb 195 lb BMI 27.2 27.9 BP 118/85 H 121/81 H Blood Pressure Location Lt brachial Lt brachial Position Sitting Sitting Respiration 16 16 Pulse 65 71 Pulse Source NIBP NIBP Intake Visit Reasons: 6 M FU [employer] In[employer] Required: No Accompanied by: Self Is patient in pain?: No Allergies No Known Allergies Allergy (Verified 02/13/25 13:36) Medications ???Medication ???Instructions ???Recorded ???Confirmed ???Type cholestyramine-aspartame 4 gram 4 g PO DAILY cholestrol 08/07/15 0 02/13/25 History oral powder pravastatin 20 mg tablet 20 mg PO QHS #30 tabs 07/20/20 Rx amlodipine 5 mg tablet 5 mg PO DAILY 05/19/24 02/13/25 Hi story buspirone 7.5 mg tablet 7.5 mg PO BID 05/19/24 02/13/25 Hi story clonazepam 0.5 mg tablet (Klonopin) 0.5 mg PO QHS 05/19/24 02/13/25 History dicyclomine 20 mg tablet 20 mg PO TID PRN 05/19/24 02/13/25 History duloxetine 60 mg capsule,delayed 60 mg PO DAILY 05/19/24 02/13/25 H istory release (Cymbalta) lisinopril 20 1 tab PO DAILY 05/19/24 02/13/25 H istory mg-hydrochlorothiazide 25 mg tablet meloxicam 15 mg tablet 15 mg PO DAILY 05/19/24 02/13/25 H istory trazodone 100 mg tablet 100 mg PO QHS 05/19/24 02/13/25 Hi story Ejection fraction %: 60 Have you fallen in the past year?: No PFSH Medical History Anginal equivalent Anxiety Cervical radiculopathy Dyslipidemia Essential hypertension Irritable bowel syndrome PRIETO (obstructive sleep apnea) Pure hypercholesterolemia Supraventricular tachycardia Surgical History History of arthroscopy of right knee History of herniorrhaphy History of radiofrequency ablation procedure for cardiac arrhythmia ( 01/09/21) Family History Other Heart disease Social History Smoking Status: Light Smoker (<10/day) alcohol intake: current details: occasional substance use type: does not use caffeine: Yes Type: coffee Number of servings: 2 ROS Const Const: Positive for fatigue; Negative for weakness, headache(s) or weight gain ENT ENT: Positive for dizziness; Negative for headache(s), Nosebleed/epistaxis or balance problems Cardio Chest Pain: Yes (zap per pt) Frequency: other (seldom) Duration: brief Palpitations: No Edema: None Muscle aches with walking: None Resp Respiratory: Positive for SOB with activity (w/exertion); Negative for SOB at rest or SOB orthopnea SOB lying down GI GI: Negative nausea, vomiting or heartburn Musc Musc: Negative for muscle aches/ myalgia, muscle weakness, joint pain or balance problems Neuro Neuro: Positive for dizziness and lightheadedness (with rapid position change from stooping/bending. Brief; seldom); Negative for near syncope, syncope, headache(s) or weakness Endo Endo: Positive for fatigue Cardiology Exam Const Appearance: comfortable and no acute distress Nutritional Appearance: well nourished Neck Neck: no JVD Carotids: Negative bruit Chest Auscultation: Bilateral: Clear to Auscultation Cardio Rate: regular rate Rhythm: regular rhythm Heart sounds: S1 normal and S2 normal Neuro General: patient alert, patient awake and patient oriented x3 Extremities Lower Extremity Edema: None: Bilateral Supplemental Info Supplemental Information Echocardiogram 07/21/2024: Interpretation Summary The left ventricular ejection fraction is 60 %. Mild tricuspid valve insufficiency. Right ventricular systolic pressure estimated to be 38 mmHg. Echocardiogram 06/16/2020: Interpretation Summary The estimated ejection fraction is 55 %. Stage 1 diastolic dysfunction. There is borderline global hypokinesis of the left ventricle. Trivial mitral valve insufficiency. Trivial tricuspid valve insufficiency. Right ventricular systolic pressure estimated to be 31 mmHg. There is no comparison study available. Stress Test 04/27/24: Rest and stress SPECT Cardiolit (more content not included)... Normal [facility] Comprehensive Metabolic Prof ilon 11-28-2024 Albumin [Mass/Vol] 3.8 g/dL Normal 3.2-5.0 [facility] Comment on above: Order Comment: ADD P SA TO BLOOD IN LAB Performed By: #### L 500.4050, L500.4100, L501.9910 #### [facility] [address] [place], [address] Albumin/Globulin [Mass ratio] 1.2 {ratio} Normal 0.9-2.4 [facility] Comment on above: Order Comment: ADD P SA TO BLOOD IN LAB Performed By: #### L 500.4050, L500.4100, L501.9910 #### [facility] [address] [place], [address] ALK P 74 U/L Normal 45-117 [facility] Comment on above: Order Comment: ADD P SA TO BLOOD IN LAB Performed By: #### L 500.4050, L500.4100, L501.9910 #### [facility] [address] [place], [address] ALT [Catalytic activity/Vol] 26 U/L Normal 16-61 [facility] Comment on above: Order Comment: ADD P SA TO BLOOD IN LAB Performed By: #### L 500.4050, L500.4100, L501.9910 #### [facility] [address] [place], [address] AST [Catalytic activity/Vol] 13 U/L Low 15-37 [facility] Comment on above: Order Comment: ADD P SA TO BLOOD IN LAB Performed By: #### L 500.4050, L500.4100, L501.9910 #### [facility] [address] [place], [address] Bilirubin [Mass/Vol] 0.40 mg/dL Normal 0.20-1.00 [facility] Comment on above: Order Comment: ADD P SA TO BLOOD IN LAB Result Comment: For patients on eltrombopag therapy, use of Dimension [place] TBIL is not recommended. Performed By: #### L 500.4050, L500.4100, L501.9910 #### [facility] [address] [place], [address] BUN/CRE 24.6 RATIO High 10-20 [facility] Comment on above: Order Comment: ADD P SA TO BLOOD IN LAB Performed By: #### L 500.4050, L500.4100, L501.9910 #### [facility] [address] [place], [address] CA,Total 9.0 mg/dL Normal 8.5-10.1 [facility] Comment on above: Order Comment: ADD P SA TO BLOOD IN LAB Performed By: #### L 500.4050, L500.4100, L501.9910 #### [facility] [address] [place], [address] Chloride [Moles/Vol] 106 mmol/L Normal 98-107 [facility] Comment on above: Order Comment: ADD P SA TO BLOOD IN LAB Performed By: #### L 500.4050, L500.4100, L501.9910 #### [facility] [address] [place], [address] CO2 [Moles/Vol] 28.0 mmol/L Normal 21.0-32.0 [facility] Comment on above: Order Comment: ADD P SA TO BLOOD IN LAB Performed By: #### L 500.4050, L500.4100, L501.9910 #### [facility] [address] [place], [address] Creatinine [Mass/Vol] 0.93 mg/dL Normal 0.70-1.30 [facility] Comment on above: Order Comment: ADD P SA TO BLOOD IN LAB Result Comment: The validity of the calculated GFR GFRAA in patients over 70 years has not been determined. Clinical correlation is essential. Performed By: #### L 500.4050, L500.4100, L501.9910 #### [facility] [address] [place], [address] EST GFR - AA 106 mL/min Normal >60 [facility] Comment on above: Order Comment: ADD P SA TO BLOOD IN LAB Result Comment: Afri can Irish GFR Calc Performed By: #### L 500.4050, L500.4100, L501.9910 #### [facility] [address] [place], [address] GAP 5 Normal 5-15 [facility] Comment on above: Order Comment: ADD P SA TO BLOOD IN LAB Performed By: #### L 500.4050, L500.4100, L501.9910 #### [facility] [address] [place], [address] GFR/1.73 sq M.predicted among non-blacks MDRD (S/P/Bld) [Vol rate/Area] 88 mL/min/{1.73_m2} Normal >60 [facility] Comment on above: Order Comment: ADD P SA TO BLOOD IN LAB Result Comment: Non- GFR Calc Performed By: #### L 500.4050, L500.4100, L501.9910 #### [facility] [address] [place], [address] Globulin (S) [Mass/Vol] 3.1 g/dL Normal 2.2-4.2 [facility] Comment on above: Order Comment: ADD P SA TO BLOOD IN LAB Performed By: #### L 500.4050, L500.4100, L501.9910 #### [facility] [address] [place], [address] Glucose [Mass/Vol] 112 mg/dL High 74-106 [facility] Comment on above: Order Comment: ADD P SA TO BLOOD IN LAB Result Comment: Fast ing Glucose result from 100 to 125 mg/dL suggests IMPAIRED HOMEOSTASIS per A.D.A. criteria. Performed By: #### L 500.4050, L500.4100, L501.9910 #### [facility] [address] [place], [address] Potassium [Moles/Vol] 4.0 mmol/L Normal 3.5-5.1 [facility] Comment on above: Order Comment: ADD P SA TO BLOOD IN LAB Performed By: #### L 500.4050, L500.4100, L501.9910 #### [facility] [address] [place], [address] Sodium [Moles/Vol] 139 mmol/L Normal 136-145 [facility] Comment on above: Order Comment: ADD P SA TO BLOOD IN LAB Performed By: #### L 500.4050, L500.4100, [id number] #### [facility] [address] [place], [address] T PROT 6.9 g/dL Normal 6.4-8.2 [facility] Comment on above: Order Comment: ADD P SA TO BLOOD IN LAB Performed By: #### L 500.4050, L500.4100, L501.9910 #### [facility] [address] [place], [address] Urea nitrogen [Mass/Vol] 23 mg/dL High 7-18 [facility] Comment on above: Order Comment: ADD P SA TO BLOOD IN LAB Performed By: #### L 500.4050, L500.4100, L501.9910 #### [facility] [facility] [address] [place], [address] Lipid Profileon 11-28-2024 Cholesterol [Mass/Vol] 214 mg/dL High 200 [facility] Comment on above: Order Comment: ADD P SA TO BLOOD IN LAB Result Comment: <200 mg/dL Desirable 200-240 mg/dL Borderline >240 mg/dL High Risk Performed By: #### L 500.4050, L500.4100, L501.9910 #### [facility] [address] [place], [address] Cholesterol in HDL [Mass/Vol] 58 mg/dL Normal [facility] Comment on above: Order Comment: ADD P SA TO BLOOD IN LAB Result Comment: The drugs N-Acetylcysteine and Metamizole may falsely depress this assay. Reference Range HDL <40 mg/dL Low HDL Cholesterol HDL >or= 60 mg/dL High HDL Cholesterol Performed By: #### L 500.4050, L500.4100, L501.9910 #### [facility] [address] [place], [address] Cholesterol in LDL [Mass/Vol] 97 mg/dL Normal 0-130 [facility] Comment on above: Order Comment: ADD P SA TO BLOOD IN LAB Performed By: #### L 500.4050, L500.4100, L501.9910 #### [facility] [address] [place], [address] Cholesterol in VLDL [Mass/Vol] 59 mg/dL High 5-40 [facility] Comment on above: Order Comment: ADD P SA TO BLOOD IN LAB Performed By: #### L 500.4050, L500.4100, L501.9910 #### [facility] [address] [place], [address] Triglyceride [Mass/Vol] 296 mg/dL High [facility] Comment on above: Order Comment: ADD P SA TO BLOOD IN LAB Result Comment: The drugs N-Acetylcysteine and Metamizole may falsely depress this assay. Serum Triglycerides Reference Interval Normal <150 mg/dL Borderline high 150 - 199 mg/dL High 200 - 499 mg/dL Very High > or = 500 mg/dL Performed By: #### L 500.4050, L500.4100, L501.9910 #### [facility] [address] [place], [address] PSA,Total - Annual Screenon 11-28-2024 PSA,TOT SCREEN 0.56 ng/mL Normal 0.00-4.00 [facility] Comment on above: Order Comment: ADD P SA TO BLOOD IN LAB Result Comment: This test was performed using the TPSA assay method for the [employer] chemistry system. Values obtained with different assay methods cannot be used interchangably. When changing PSA assays in the course of monitoring a patient, additional sequential testing should be carried out to confirm baseline values. Performed By: #### L 500.4050, L500.4100, L501.9910 #### [facility] [address] [place], [address] Cardiology Visit Reporton Cardiology Visit Report [facility] [address] [place] [address] OFFICE VISIT Date of Service: 08/16/24 MR#: [id number] Acct: [id number] Name: SAQIB BRANNON Rep #: [id number] : 1965 Provider: Dr. Natalia Osborn MD Age/Sex: 58/M [place] [facility] [place]: Signed [facility] History of Present Illness Details: This gentleman is here for follow-up visit. Denies any palpitations. No chest pains. No shortness of breath. He has had a 7-day event monitor done which showed 1% burden of PVCs. Patient complains of lightheadedness when changing posture from sitting to standing position abruptly. No syncopal episodes. Per patient, since the timing of taking his amlodipine and lisinopril hydrochlorothiazide, he feels much better. 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 Accompanied by: Self Is patient in pain?: No Allergies No Known Allergies Allergy (Verified 08/16/24 09:03) Medications ???Medication ???Instructions ???Recorded ???Confirmed ???Type cholestyramine-aspartame 4 gram 4 g PO DAILY cholestrol 08/07/15 08/16/24 History oral powder pravastatin 20 mg tablet 20 mg PO QHS #30 tabs 07/20/20 08/16/24 Rx amlodipine 5 mg tablet 5 mg PO DAILY 05/19/24 08/16/24 History buspirone 7.5 mg tablet 7.5 mg PO BID 05/19/24 08/16/24 History clonazepam 0.5 mg tablet (Klonopin) 0.5 mg PO QHS 05/19/24 08/16/24 History dicyclomine 20 mg tablet 20 mg PO TID PRN 05/19/24 08/16/24 History duloxetine 60 mg capsule,delayed 60 mg PO DAILY 05/19/24 08/16/24 History release (Cymbalta) lisinopril 20 1 tab PO DAILY 05/19/24 08/16/24 History mg-hydrochlorothiazide 25 mg tablet meloxicam 15 mg tablet 15 mg PO DAILY 05/19/24 08/16/24 History trazodone 100 mg tablet 100 mg PO QHS 05/19/24 08/16/24 History Ejection fraction %: 60 Have you fallen in the past year?: No PFSH Medical History Anginal equivalent Anxiety Cervical radiculopathy Dyslipidemia Essential hypertension Irritable bowel syndrome PRIETO (obstructive sleep apnea) Pure hypercholesterolemia Supraventricular tachycardia Surgical History History of arthroscopy of right knee History of herniorrhaphy History of radiofrequency ablation procedure for cardiac arrhythmia ( 01/09/21) Family History Other Heart disease Social History Smoking Status: Light Smoker (<10/day) alcohol intake: current details: occasional substance use type: does not use caffeine: Yes Type: coffee Number of servings: 2 ROS Const Const: Negative for fatigue, weakness, headache(s) or weight gain ENT ENT: Positive for balance problems (pt attributes to eyesight); Negative for headache(s), dizziness or Nosebleed/epistaxis Cardio Chest Pain: No Palpitations: No Edema: None Muscle aches with walking: None Resp Respiratory: Negative for SOB with activity, SOB at rest or SOB orthopnea SOB lying down GI GI: Positive for heartburn; Negative nausea or vomiting Musc Musc: Positive for balance problems (pt attributes to eyesight); Negative for muscle aches/ myalgia, muscle weakness or joint pain Neuro Neuro: Positive for lightheadedness (upon rising; positional) and near syncope; Negative for dizziness, syncope, headache(s) or weakness Endo Endo: Negative for fatigue Cardiology Exam Const Appearance: comfortable and no acute distress Nutritional Appearance: well nourished Neck Neck: no JVD Carotids: Negative bruit Chest Auscultation: Bilateral: Clear to Auscultation Cardio Rate: regular rate Rhythm: regular rhythm Heart sounds: S1 normal and S2 normal Neuro General: patient alert, patient awake and patient oriented x3 Extremities Lower Extremity Edema: None: Bilateral Supplemental Info Supplemental Information Echocardiogram 07/21/2024: Interpretation Summary The left ventricular ejection fraction is 60 %. Mild tricuspid valve insufficiency. Right ventricular systolic pressure estimated to be 38 mmHg. Echocardiogram: 06/16/2020 Interpretation Summary The estimated ejection fraction is 55 %. Stage 1 diastolic dysfunction. There is borderline global hypokinesis of the left ventricle. Trivial mitral valve insufficiency. Trivial tricuspid valve insufficiency. Right ventricular systolic pressure estimated to be 31 mmHg. There is (more content not included)... Normal [facility] 08-01-2024 [facility] -------- SALUDSAQIB MCCANN ([id number]) 1965 M Date Time Provider Department 08/01/24 FRANCI FLETCHER During your visit today, we recorded the following information about you: Franci Fletcher, DENG 08/01/2024 9:22 AM Signed Called to offer surgery date with Dr. Garza, no answer, LMTCB Allergies As of Date: 08/01/2024 (No Known Allergies) Date Reviewed: 07/27/2024 Reviewed by: Mariah Gunn OCCA - Fully Assessed Reason for Visit: Patient Update [1234] Prescriptions as of 08/01/2024 - Vacuum Erection Device System kit Use as directed. - amLODIPine (NORVASC) 5 mg tablet Take 1 tablet by mouth every afternoon. - aspirin 81 mg chewable tablet Take 81 mg by mouth. - busPIRone (BUSPAR) 7.5 mg tablet Take 1 tablet by mouth every 12 hours. - clonazePAM (KLONOPIN) 0.5 mg tablet Take 0.5 mg by mouth daily at bedtime. - DULoxetine (CYMBALTA) 60 mg capsule Take 1 capsule by mouth every afternoon. - lisinopril-hydroCHLOROth iazide (ZESTORETIC) 20-25 mg per tablet Take 1 tablet by mouth every afternoon. - meloxicam (MOBIC) 15 mg tablet Take 1 tablet by mouth every afternoon. - multivitamin tablet Take 1 tablet by mouth once daily. - pravastatin (PRAVACHOL) 20 mg tablet Take 1 tablet by mouth every afternoon. - traZODone (DESYREL) 100 mg tablet Take 100 mg by mouth daily at bedtime. - sildenafil (VIAGRA) 100 mg tablet Take 1 tablet by mouth once daily as needed. Take 30-60 minutes before sexual activity on an empty stomach - famciclovir 500 mg tablet Take 3 tablets on day of cold sore outbreak. - cyclobenzaprine 10 mg ORAL tablet Take 1 tablet by mouth at bedtime as needed. - citalopram (CELEXA) 40 mg ORAL tablet Take 1.5 tablets by mouth once daily. - Cholestyramine-Aspartame 4 gram ORAL powder Take by mouth. 1 scoop daily in 8 oz water - cholestyramine low-calorie 4 gram ORAL packet One packet daily in 8oz of water. Meds Comments as of 03/19/2009: All medications reviewed today 03/19/09 Citlali Alvarez RRT Problem List As Of Date 08/01/2024 Noted Resolved Cervicalgia [M54.2] 03/21/2008 Other and unspecified hyperlipidemia [E78.5] 03/12/2009 Depressive disorder, not elsewhere classified [*12/13/2010 Encounter Status:Closed by FRANCI FLETCHER on 08/01/24 Normal [facility] CNOVon 07-27-2024 CNOV Office Visit (UROLMN ) -------- SAQIB BRANNON ([id number]) 1965 M Date Time Provider Department 07/27/24 10:30 AM PROMISE GODINEZ During your visit today, we recorded the following information about you: Weight Height 83.5 kg 1.778 m Promise Godinez APRN.FINANCIAL AID OFFICER 07/27/2024 8:08 PM Addendum [facility] MALE PATIENT - HISTORY AND PHYSICAL EXAMINATION PATIENT: Saqib Brannon Patient has been identified by name and date of : Yes PCP: No primary care provider on file. CHIEF COMPLAINT: ER follow up HISTORY OF PRESENT ILLNESS: Saqib Brannon is a 58 year old male presenting today for: ER follow up. Pt has a hx of Peyronie's disease with penile doppler on 02/26/[address] Garza - 50 degree dorsal curvature. He was to have an IPP scheduled, but has held off. He is not taking PDE5Is because he reports they do not provide much benefit. Pt presented to the ER on 07/23/24 for concern for penile fracture. During intercourse pt felt a pop. No erection was lost and he could continue to have sex. Presented to the ER the next day with penile bruising and swelling. Pt denies any pain. No concerns with urination and no hematuria. There was no ability to do imagining at the [facility] he presented to and he decided not to get trnaferred to another hospital. Erection was about a 7/10 at the base, but softer near the glans during the suspected penile fracture. He has had some spontaneous erections after the episode, but they are not as strong as they were. REVIEW OF SYSTEMS: relevant updates noted in HPI PAST MEDICAL HISTORY: PAST MEDICAL HISTORY Diagnosis Date Irritable bowel syndrome Irritable bowel Mixed hyperlipidemia Hyperlipidemia PAST SURGICAL HISTORY Procedure Laterality Date COLONOSCOPY FLX DX W/COLLJ SPEC WHEN PFRMD 11/27/2004 Colonoscopy PAST SURGICAL HISTORY OF knee surgery (right) --> meniscus ([place]) VASECTOMY UNI/BI SPX W/POSTOP SEMEN EXAMS 2003 Social History Tobacco Use Smoking status: Never Substance Use Topics Alcohol use: Yes Drug use: No FAMILY HISTORY Problem Relation Age of Onset Heart Mother CAD -- first dx'd age 40's Heart Father defib/pacer; first disease age 30's, no known CAD GI Brother resection -- not sure of details; MEDICATIONS: reviewed and confirmed with patient OFFICE DATA: labs reviewed OTHER DATA: Labs reviewed No results found for: PSA No results found for: TESTOST, TESTFREE No results found for: HBA1C No results found for: TSH No results found for: CREAT PHYSICAL EXAMINATION: The sensitive examination was discussed with the Patient or Patient's Authorized Manager Wound Care. As applicable, any other physician, advance practice provider, medical student, or other health professional student that will be observing or involved in the sensitive examination for educational or training purposes was discussed with the Patient or Authorized Manager Wound Care. The Patient or Authorized Manager Wound Care has agreed to proceed with the sensitive examination. (Sensitive examination includes inspection and/or palpation of the breasts, pelvis, prostate and anorectal regions) General appearance: cooperative, pleasant, no acute distress, alert and oriented, well nourished male. Neuro: normal affect, normal speech, gait is normal. Lungs/chest: no signs of respiratory distress, no audible wheezing Extremities: no edema, normal motor function. Back: no CVA tenderness Abdomen: ni suprapubic distention Scrotum: no lesions, no hydrocele Testes: descended bilaterally, non-tender, nl size bilaterally, no intratesticular masses bilaterally Penis: circumcised, NL phallus, no lesions, NL meatus. -extensive bruising to both penis and scrotum. -Dr. Butterfield was in to assess pt. ASSESSMENT: 1. Fracture of corpus cavernosum penis, sequela - ICD9: 908.9, ICD10: S39.840S (primary diagnosis) 2. Peyronie's disease - ICD9: 607.85, ICD10: N48.6 3. Erectile dysfunction, unspecified erectile dysfunction type - ICD9: 607.84, ICD10: N52.9 PLAN: 1. Fracture of corpus cavernosum penis, sequela -pop felt during sexual encounter - Dr. Butterfield in to assess pt. -Due to length of time since occurrence and current assessment, will not proceed with surgical intervention 2. Peyronie's disease -50 degree dorsal curvature. 3. Erectile dysfunction, unspecified erectile dysfunction type -no improvement with PDE5Is -counseled on use of DONNA. -pt is interested in proceeding with IPP. The results of tests will be communicated to patient via telephone. Patient verbalized understanding. Promise Godinez APRN.FINANCIAL AID OFFICER Location: MAIN Referring Provider: SELF [200] Allergies As of Date: 07/27/2024 (No Known Allergies) Date Reviewed: 07/27/2024 Reviewed by: Mariah Gunn OCCA - Fully Assessed Reas (more content not included)... Normal [facility] Emergency Department Summary on 07-23-2024 Emergency Department Summary [facility] Medical Records Department [address] [place] [address] Emergency Department Summary 07/23/24 MR#: [id number] Acct: [id number] Name: SAQIB BRANNON Rep #: [id number] : 1965 58 From: Isaías Nieves MD PCP: Dr. Chase Curiel MD Status:REG ER Location: ED HPI History of Present Illness Chief Complaint: Male Pain/Injury Detail of Chief Complaint: Concern for penile fracture. Informant: patient Pain Onset: Yesterday Narrative Narrative: 58-year-old male has erectile dysfunction. He is on no blood thinners. Last night he was having intercourse. Said he felt a pop. Denies any pain now or at the time. Said he finished intercourse. Today has had significant penile shaft bruising. Denies any other complaints. He can urinate. Again denies any pain. Prior similar symptoms: No Recent Ill[facility] Medical History Cervical radiculopathy Anxiety PRIETO (obstructive sleep apnea) Pure hypercholesterolemia Essential hypertension Dyslipidemia Anginal equivalent Supraventricular tachycardia Irritable bowel syndrome Home Medications ???Medication ???Instructions ???Recorded ???Last Taken ???Type cholestyramine-aspartame 4 gram 4 g PO DAILY cholestrol 08/07/15 06/16/20 History oral powder pravastatin 20 mg tablet 20 mg PO QHS #30 tabs 07/20/20 Unknown Rx amlodipine 5 mg tablet 5 mg PO DAILY 05/19/24 Unknown History buspirone 7.5 mg tablet 7.5 mg PO BID 05/19/24 Unknown History clonazepam 0.5 mg tablet (Klonopin) 0.5 mg PO QHS 05/19/24 Unknown History dicyclomine 20 mg tablet 20 mg PO TID PRN 05/19/24 Unknown History duloxetine 60 mg capsule,delayed 60 mg PO DAILY 05/19/24 Unknown History release (Cymbalta) lisinopril 20 1 tab PO DAILY 05/19/24 Unknown History mg-hydrochlorothiazide 25 mg tablet meloxicam 15 mg tablet 15 mg PO DAILY 05/19/24 Unknown History trazodone 100 mg tablet 100 mg PO QHS 05/19/24 Unknown History Allergy/AdvReac Type Severity Reaction Status Date / Time No Known Allergies Allergy Verified 07/23/24 10:07 Family History Other Heart disease Surgical History History of radiofrequency ablation procedure for cardiac arrhythmia ( 01/09/21) History of arthroscopy of right knee History of herniorrhaphy Social History Smoking Status: Light Smoker (<10/day) alcohol intake: current details: occasional substance use type: does not use caffeine: Yes Type: coffee Number of servings: 2 ROS ROS ED ROS Narrative Denies recent illness. Constitutional Constitutional ED: Denies fever(s) Eyes Eyes: Denies blurry vision ENT ENT ED: Denies ear pain Cardiovascular Cardiovascular: Denies chest pain Respiratory/Chest Respiratory/Chest: Denies cough Gastrointestinal Gastrointestinal: Denies abdominal pain Genitourinary Genitourinary ED: Denies dysuria, hematuria or urinary frequency Musculoskeletal Musculoskeletal: Denies arthralgias Integumentary Denies abscess Neurologic Neurologic: Denies headache(s) Psychiatric Psychiatric: Denies anxiety or depression Endocrine Endocrinology: Denies polydipsia Hematologic/Lymphatic Hematologic/Lymphatic: Denies easy bleeding Allergic/Immunologic Allergic/Immunologic ED: Denies mouth swelling EXAM Physical Exam Narrative Exam Narrative: Is a 8-year-old male vital signs stable afebrile. H EENT exam unremarkable. Lungs clear. Heart regular rhythm rate about 80 no murmur. Abdomen soft nontender. Moving all 4 extremities. Nontender no edema. He is awake and alert. No focal motor deficits. External exam circumcised male. He has bruising of his penile shaft. Scrotum nontender. Penile shaft nontender. There is no inguinal lymphadenopathy. No cellulitis. Skin is intact. Mild swelling. Const Vital Signs: 07/23/24 10:07 Temperature 97.3 F L Temperature Source Temporal Pulse Rate 83 Respiratory Rate 14 Blood Pressure 132/84 H Blood Pressure Mean 100 Pulse Ox 97 Oxygen Delivery Method Room Air Positive well nourished and well developed; Negative for obese, cachectic, contractures or unkempt General Appearance ED: well developed and NAD; Negative for unkempt, cachectic, contractures or pallor Nutritional Appearance: Negative for cachectic or obese HEENT Reports moist mucous membranes; Denies dry mucous membranes normocephalic and atraumatic; Negative for trauma or tenderness Mouth ED: No dry mucous membranes Mouth: No dry mucous membranes Eyes PERRL and EOMs intact bilaterally General Eye ED: Negative for pale conjunctiva or scleral icterus Neck (more content not included)... Normal [facility] Echo Completeon 07-21-2024 Echo Complete [facility] [place] [address] Echo Complete 07/21/24 1015 MR#: [id number] Acct: [id number] Name: SAQIB BRANNON Rep #: [id number] : 1965 58 From: Natalia Osborn MD Attending Dr: Dr. Natalia Osborn MD Status: REG CLI Ordering Dr: Natalia Osborn MD Date: 07/21/24 Location: [facility] Sex: M C Admitted: Reason For Study: Dyspnea/SOB Procedure This was a 2D Doppler, Color Flow transthoracic echocardiogram. Exam performed in department. Left Ventricle Normal size and thickness. The left ventricular ejection fraction is 60 %. No evidence for diastolic dysfunction. Right Ventricle Normal right ventricle. Atria The left and right atria are normal. Mitral Valve Trivial mitral valve insufficiency. Tricuspid Valve Mild tricuspid valve insufficiency. Right ventricular systolic pressure estimated to be 38 mmHg. Aortic Valve Trisinus/trileaflet aortic valve. There is no aortic stenosis. Pulmonic Valve The pulmonic valve is not well visualized. Great Vessels Normal sized aortic root. Pericardium/Pleural No pericardial effusion. MMode/2D Measurements Calculations LVIDd: 5.4 cm IVSd: 0.99 cm LVOT diam: 2.3 cm LVIDs: 3.3 cm LVPWd: 0.97 cm LVOT area: 4.3 cm2 RVDd: 3.2 cm FS: 38.3 % Ao root diam: 3.4 cm LAV(MOD-bp): 55.4 ml LVAd ap4: 32.6 cm2 LA dimension: 3.9 cm LAV(MOD-bp) Indexed: 27.1 ml/m2 LVLd ap4: 7.6 cm LAV(MOD-sp2): 43.1 ml EDV(MOD-sp4): 117.0 ml LAV(MOD-sp4): 57.2 ml EDV(sp4-el): 118.7 ml LVAs ap4: 20.2 cm2 LVLs ap4: 6.8 cm ESV(MOD-sp4): 50.8 ml ESV(sp4-el): 50.8 ml EF(MOD-sp4): 56.6 % EF(sp4-el): 57.2 % SV(MOD-sp4): 66.2 ml SV(sp4-el): 67.9 ml Ao sinus diam: 3.[address] Junction: 3.1 cm LA A4 area: 20.7 cm2 RA A4 area: 20.7 cm2 TAPSE: 2.8 cm Time Measurements MV dec time: 0.26 sec Doppler Measurements Calculations MV E max riya: 53.6 cm/sec Lat Peak E' Riya: 7.7 cm/sec Med Peak E' Riya: 8.9 cm/sec MV A max riya: 64.9 cm/sec E/E' lat: 7.0 E/E' med: 6.0 MV E/A: 0.83 MV V2 max: 76.5 cm/sec MV P1/2t max riya: 64.3 cm/sec Ao V2 max: 127.7 cm/sec MV max P.3 mmHg MV P1/2t: 94.5 msec Ao max P.5 mmHg MV V2 mean: 34.5 cm/sec MV dec slope: 199.3 cm/sec2 Ao V2 mean: 82.8 cm/sec MV mean P.59 mmHg Ao mean P.3 mmHg MV V2 VTI: 29.4 cm MVA(P1/2t): 2.3 cm2 Ao V2 VTI: 27.3 cm DIANA(V,D): 3.1 cm2 LV V1 max: 93.1 cm/sec TR max riya: 242.2 cm/sec LV V1 max P.5 mmHg TR max P.5 mmHg ECHO/Echo Complete Interpretation Summary The left ventricular ejection fraction is 60 %. Mild tricuspid valve insufficiency. Right ventricular systolic pressure estimated to be 38 mmHg. Ordering Physician: Natalia Osborn Referring Physician: Natalia Osborn Performed By: Maxi Valderrama RCS 07/21/24 1441 Date Natalia Osborn MD CC: Dr. Natalia Osborn MD; Dr. Chase Curiel MD Date Dictated: 07/21/24 1015 Date Transcribed: 07/21/24 1441 Safety Companion: Signed Normal [facility] 12 Lead EKG performed by [facility] on 06-21-2024 12 Lead EKG performed by [facility] [address] [place] [address] 12 Lead EKG performed by [facility] 06/21/24922 MR#: [id number] Acct: [id number] Name: SAQIB BRANNON Rep #: [id number] : 1965 58 From: Natalia Osborn MD Attending Dr: Dr. 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 ABNORMAL Electronically signed on 11/28/2024 at 10:[address] Natalia Osborn [employer] Version [id number] 11/28/24 1025 Date Natalia Osborn MD CC: Dr. Chase Curiel MD Date Dictated: 06/21/24 09 Date Transcribed: 06/21/24 0923 Safety Companion: AR Signed Normal [facility] Cardiology Visit Reporton Cardiology Visit Report [facility] [address] [place] [address] OFFICE VISIT Date of Service: 06/21/24 MR#: [id number] Acct: [id number] Name: SAQIB BRANNON Rep #: [id number] : 1965 Provider: Dr. Natalia Osborn MD Age/Sex: 58/M Location: [facility] Status: Signed HPI [facility] History of Present Illness Details: This gentleman has past medical history significant for SVT status post radiofrequency ablation in 2020. Also history of dyslipidemia and hypertension. He has had coronary CT angiogram done in 2022 which showed a calcium score of 0 with no significant atherosclerotic burden. Recently he has had an exercise stress Myoview done. It was negative for ischemia on nuclear imaging and on ECG. No chest pain was reported. However it was noted that he had frequent PVCs with exercise. He has been referred to us for evaluation and management of his arrhythmia. Patient denies any palpitations. She denies any chest pains either at rest or with exertion. However he has noticed that he does get short of breath with climbing couple of flights of stairs. He is physically active. According to him, he mows his lawn and has to take a break with that. Denies orthopnea. No PND. No ankle edema. Denies any syncope or presyncope. However he does feel lightheaded on frequent basis. According to him, this last for few seconds. Mostly happens with physical exertion. 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: No Accompanied by: Self Is patient in pain?: No Allergies No Known Allergies Allergy (Verified 06/21/24 09:30) Medications ???Medication ???Instructions ???Recorded ???Confirmed ???Type cholestyramine-aspartame 4 gram 4 g PO DAILY cholestrol 08/07/15 06/21/24 History oral powder pravastatin 20 mg tablet 20 mg PO QHS #30 tabs 07/20/20 06/21/24 Rx amlodipine 5 mg tablet 5 mg PO DAILY 05/19/24 06/21/24 History buspirone 7.5 mg tablet 7.5 mg PO BID 05/19/24 06/21/24 History clonazepam 0.5 mg tablet (Klonopin) 0.5 mg PO QHS 05/19/24 06/21/24 History dicyclomine 20 mg tablet 20 mg PO TID PRN 05/19/24 06/21/24 History duloxetine 60 mg capsule,delayed 60 mg PO DAILY 05/19/24 06/21/24 History release (Cymbalta) lisinopril 20 1 tab PO DAILY 05/19/24 06/21/24 History mg-hydrochlorothiazide 25 mg tablet meloxicam 15 mg tablet 15 mg PO DAILY 05/19/24 06/21/24 History trazodone 100 mg tablet 100 mg PO QHS 05/19/24 06/21/24 History Have you fallen in the past year?: No [facility] Medical History (Updated 06/21/24 @ 09:[address] Natalia Osborn MD) Cervical radiculopathy Anxiety PRIETO (obstructive sleep apnea) Pure hypercholesterolemia Essential hypertension Dyslipidemia Anginal equivalent Supraventricular tachycardia Irritable bowel syndrome Surgical History History of radiofrequency ablation procedure for cardiac arrhythmia ( 01/09/21) History of arthroscopy of right knee History of herniorrhaphy Family History Other Heart disease Social History Smoking Status: Light Smoker (<10/day) alcohol intake: current details: occasional substance use type: does not use caffeine: Yes Type: coffee Number of servings: 2 ROS Const Const: Positive for fatigue; Negative for weakness, headache(s), daytime sleepiness or difficulty sleeping ENT ENT: Positive for dizziness (thinks it could be due to eyesight); Negative for headache(s) or Nosebleed/epistaxis Cardio Chest Pain: No Palpitations: No Edema: None Resp Respiratory: Positive for SOB with activity (with exertion ); Negative for SOB at rest, SOB orthopnea SOB lying down or Cough GI GI: Positive for heartburn; Negative nausea or vomiting Neuro Neuro: Positive for dizziness (thinks it could be due to eyesight); Negative for lightheadedness, near syncope, headache(s) or weakness Endo Endo: Positive for fatigue Cardiology Exam Const Appearance: comfortable and no acute distress Nutritional Appearance: well nourished Neck Neck: no JVD Carotids: Negative bruit Chest Auscultation: Bilateral: Clear to Auscultation Cardio Rate: regular rate Rhythm: regular rhythm Heart sounds: S1 normal and S2 normal Neuro General: patient alert, patient awake and patient oriented x3 Extremities Lower Extremity Edema: None: Bilateral Supplemental Info Supplemental Information Echocardiogram: 06/16/2020 In (more content not included)... Normal [facility] Comprehensive Metabolic Prof ilon 06-21-2024 Albumin [Mass/Vol] 3.8 g/dL Normal 3.2-5.0 [facility] Comment on above: Performed By: #### L 500.4050, L501.5200, L501.9520 #### [facility] [address] [place], [address] Albumin/Globulin [Mass ratio] 1.2 {ratio} Normal 0.9-2.4 [facility] Comment on above: Performed By: #### L 500.4050, L501.5200, L501.9520 #### [facility] [address] [place], [address] ALK P 74 U/L Normal 45-117 [facility] Comment on above: Performed By: #### L 500.4050, L501.5200, L501.9520 #### [facility] [address] [place], [address] ALT [Catalytic activity/Vol] 29 U/L Normal 16-61 [facility] Comment on above: Performed By: #### L 500.4050, L501.5200, L501.9520 #### [facility] [address] [place], [address] AST [Catalytic activity/Vol] 15 U/L Normal 15-37 [facility] Comment on above: Performed By: #### L 500.4050, L501.5200, L501.9520 #### [facility] [address] [place], [address] Bilirubin [Mass/Vol] 0.40 mg/dL Normal 0.20-1.00 [facility] Comment on above: Result Comment: For patients on eltrombopag therapy, use of Dimension [place] TBIL is not recommended. Performed By: #### L 500.4050, L501.5200, L501.9520 #### [facility] [address] [place], [address] BUN/CRE 31.1 RATIO High 10-20 [facility] Comment on above: Performed By: #### L 500.4050, L501.5200, L501.9520 #### [facility] [address] [place], [address] CA,Total 9.1 mg/dL Normal 8.5-10.1 [facility] Comment on above: Performed By: #### L 500.4050, L501.5200, L501.9520 #### [facility] [address] [place], [address] Chloride [Moles/Vol] 106 mmol/L Normal 98-107 [facility] Comment on above: Performed By: #### L 500.4050, L501.5200, L501.9520 #### [facility] [address] [place], [address] CO2 [Moles/Vol] 27.0 mmol/L Normal 21.0-32.0 [facility] Comment on above: Performed By: #### L 500.4050, L501.5200, L501.9520 #### [facility] [address] [place], [address] Creatinine [Mass/Vol] 0.84 mg/dL Normal 0.70-1.30 [facility] Comment on above: Result Comment: The validity of the calculated GFR GFRAA in patients over 70 years has not been determined. Clinical correlation is essential. Performed By: #### L 500.4050, L501.5200, L501.9520 #### [facility] [address] [place], [address] EST GFR - AA 121 mL/min Normal >60 [facility] Comment on above: Result Comment: Afri can Irish GFR Calc Performed By: #### L 500.4050, L501.5200, L501.9520 #### [facility] [address] [place], [address] GAP 5 Normal 5-15 [facility] Comment on above: Performed By: #### L 500.4050, L501.5200, L501.9520 #### [facility] [address] [place], [address] GFR/1.73 sq M.predicted among non-blacks MDRD (S/P/Bld) [Vol rate/Area] 100 mL/min/{1.73_m2} Normal >60 [facility] Comment on above: Result Comment: Non- GFR Calc Performed By: #### L 500.4050, L501.5200, L501.9520 #### [facility] [address] [place], [address] Globulin (S) [Mass/Vol] 3.2 g/dL Normal 2.2-4.2 [facility] Comment on above: Performed By: #### L 500.4050, L501.5200, L501.9520 #### [facility] [address] [place], [address] Glucose [Mass/Vol] 105 mg/dL Normal 74-106 [facility] Comment on above: Result Comment: Fast ing Glucose result from 100 to 125 mg/dL suggests IMPAIRED HOMEOSTASIS per A.D.A. criteria. Performed By: #### L 500.4050, L501.5200, L501.9520 #### [facility] [address] [place], [address] Potassium [Moles/Vol] 4.1 mmol/L Normal 3.5-5.1 [facility] Comment on above: Performed By: #### L 500.4050, L501.5200, L501.9520 #### [facility] [address] [place] [address] [place], [address] Sodium [Moles/Vol] 138 mmol/L Normal 136-145 [facility] Comment on above: Performed By: #### L 500.4050, L501.5200, L501.9520 #### [facility] [address] [place], [address] T PROT 7.0 g/dL Normal 6.4-8.2 [facility] Comment on above: Performed By: #### L 500.4050, L501.5200, L501.9520 #### [facility] [address] [place] [place], [address] Urea nitrogen [Mass/Vol] 26 mg/dL High 7-18 [facility] Comment on above: Performed By: #### L 500.4050, L501.5200, L501.9520 #### [facility] [address] [place], [address] Magnesiumon 06-21-2024 Magnesium [Mass/Vol] 2.4 mg/dL Normal 1.6-2.6 [facility] Comment on above: Performed By: #### L 500.4050, L501.5200, L501.9520 #### [facility] [address] [place], [address] Thyroid Stim Hormone (TSH)on 06-21-2024 TSH 1.590 uIU/mL Normal 0.358-3.740 [facility] Comment on above: Performed By: #### L 500.4050, L501.5200, L501.9520 #### [facility] [address] [place] [place], [address] Stress Reporton 04-27-2024 Stress Report [facility] [address] [place] [address] MR#: [id number] Acct: [id number] Name: SAQIB BRANNON Rep #: [id number] : 1965 58 From: Natalia Osborn MD Primary Care: Dr. Chase Curiel MD Status: REG CLI Referring Dr: Chase Curiel MD Sex: M C Stress Test Report Date: 04/27/2024 Procedure: Exercise tolerance test/imaging study Indications: Dyspnea Consent: Per the patient Procedure: The patient exercised on a Todd protocol for 5 minutes achieving a peak heart rate of 137 bpm (84% predicted maximal heart rate) with a peak blood pressure 166/92 mmHg and a peak MET capacity of 7.0 METs. The baseline ECG demonstrated sinus rhythm. The peak exercise ECG demonstrated no ischemic changes. Frequent PVCs noted during exercise, mostly in a bigeminal manner. The functional capacity was considered below average. There was no complaint of chest discomfort but arm weakness was reported. The examination was discontinued secondary to target heart rate being achieved and frequent arrhythmia. The patient was injected with 13.5 mCi of technetium 99m Cardiolite and subsequently rest SPECT Cardiolite nuclear imaging was obtained in the horizontal long, vertical long, and short axis views. Post-exercise, the patient was injected with 40.6 mCi of technetium 99m Cardiolite and subsequently stress SPECT Cardiolite nuclear imaging was obtained in the horizontal long, vertical long, and short axis views. A gated Cardiolite study at peak stress was obtained. Rest and stress SPECT Cardiolite nuclear imaging status post realignment, normalization, and attenuation correction, demonstrates the appearance of relative uniform tracer uptake and myocardial perfusion appearing within normal limits. There is end systolic thickening and brightening. The gated Cardiolite study demonstrates myocardial thickening and inward wall motion. The reported LVEF is 60%. Impression: 1. Technically adequate (percent predicted maximal heart rate greater than 85%) exercise tolerance test 2. Peak exercise ECG with no ischemic changes 3. Significant arrhythmia burden with frequent PVCs during exercise, mostly in a bigeminal manner 4. Rest and stress SPECT Cardiolite nuclear imaging demonstrate relative uniform tracer uptake and myocardial perfusion appearing within normal limits. 5. The gated Cardiolite study reports an LVEF of 60%. This note was generated with [employer] software. It may contain incorrect words, spelling, and punctuation that were not noted in checking the note before signing. 04/27/241212 Date Natalia Osborn MD CC: Dr. Chase Curiel MD Date Dictated: 04/27/241209 Date Transcribed: 04/27/241209 Safety Companion: MARISOL Brandon [facility] 03-07-2024 [facility] Telephone (UROLMN) -------- SALUDSAQIB ([id number]) 1965 M Date Time Provider Department 03/07/24 FRANCI FLETCHER During your visit today, we recorded the following information about you: Allergies As of Date: 03/07/2024 (No Known Allergies) Date Reviewed: 02/26/2024 Reviewed by: Tavo Garza MD - Fully Assessed Reason for Visit: Patient Update [1234] Prescriptions as of 03/07/2024 - amLODIPine (NORVASC) 5 mg tablet Take 1 tablet by mouth every afternoon. - aspirin 81 mg chewable tablet Take 81 mg by mouth. - busPIRone (BUSPAR) 7.5 mg tablet Take 1 tablet by mouth every 12 hours. - clonazePAM (KLONOPIN) 0.5 mg tablet Take 0.5 mg by mouth daily at bedtime. - DULoxetine (CYMBALTA) 60 mg capsule Take 1 capsule by mouth every afternoon. - lisinopril-hydroCHLOROth iazide (ZESTORETIC) 20-25 mg per tablet Take 1 tablet by mouth every afternoon. - meloxicam (MOBIC) 15 mg tablet Take 1 tablet by mouth every afternoon. - multivitamin tablet Take 1 tablet by mouth once daily. - pravastatin (PRAVACHOL) 20 mg tablet Take 1 tablet by mouth every afternoon. - traZODone (DESYREL) 100 mg tablet Take 100 mg by mouth daily at bedtime. - sildenafil (VIAGRA) 100 mg tablet Take 1 tablet by mouth once daily as needed. Take 30-60 minutes before sexual activity on an empty stomach - famciclovir 500 mg tablet Take 3 tablets on day of cold sore outbreak. - cyclobenzaprine 10 mg ORAL tablet Take 1 tablet by mouth at bedtime as needed. - citalopram (CELEXA) 40 mg ORAL tablet Take 1.5 tablets by mouth once daily. - Cholestyramine-Aspartame 4 gram ORAL powder Take by mouth. 1 scoop daily in 8 oz water - cholestyramine low-calorie 4 gram ORAL packet One packet daily in 8oz of water. Meds Comments as of 03/19/2009: All medications reviewed today 03/19/09 Citlali Alvarez RRT Problem List As Of Date 03/07/2024 Noted Resolved Cervicalgia [M54.2] 03/21/2008 Other and unspecified hyperlipidemia [E78.5] 03/12/2009 Depressive disorder, not elsewhere classified [*12/13/2010 Encounter Status:Closed by FRANCI FLETCHER on 03/07/24 [facility] 02-29-2024 [facility] Telephone (SONIALIN) -------- SAQIB BRANNON ([id number]) 1965 M Date Time Provider Department 02/29/24 FRANCI FLETCHER During your visit today, we recorded the following information about you: Franci Fletcher RN 02/29/2024 2:14 PM Signed Reached out to patient to offer surgery with Dr. Garza, he is still discussing procedure with . He will call if he decides to have surgery, gave number to call back. Allergies As of Date: 02/29/2024 (No Known Allergies) Date Reviewed: 02/26/2024 Reviewed by: Tavo Garza MD - Fully Assessed Reason for Visit: Patient Update [1234] Prescriptions as of 02/29/2024 - amLODIPine (NORVASC) 5 mg tablet Take 1 tablet by mouth every afternoon. - aspirin 81 mg chewable tablet Take 81 mg by mouth. - busPIRone (BUSPAR) 7.5 mg tablet Take 1 tablet by mouth every 12 hours. - clonazePAM (KLONOPIN) 0.5 mg tablet Take 0.5 mg by mouth daily at bedtime. - DULoxetine (CYMBALTA) 60 mg capsule Take 1 capsule by mouth every afternoon. - lisinopril-hydroCHLOROth iazide (ZESTORETIC) 20-25 mg per tablet Take 1 tablet by mouth every afternoon. - meloxicam (MOBIC) 15 mg tablet Take 1 tablet by mouth every afternoon. - multivitamin tablet Take 1 tablet by mouth once daily. - pravastatin (PRAVACHOL) 20 mg tablet Take 1 tablet by mouth every afternoon. - traZODone (DESYREL) 100 mg tablet Take 100 mg by mouth daily at bedtime. - sildenafil (VIAGRA) 100 mg tablet Take 1 tablet by mouth once daily as needed. Take 30-60 minutes before sexual activity on an empty stomach - famciclovir 500 mg tablet Take 3 tablets on day of cold sore outbreak. - cyclobenzaprine 10 mg ORAL tablet Take 1 tablet by mouth at bedtime as needed. - citalopram (CELEXA) 40 mg ORAL tablet Take 1.5 tablets by mouth once daily. - Cholestyramine-Aspartame 4 gram ORAL powder Take by mouth. 1 scoop daily in 8 oz water - cholestyramine low-calorie 4 gram ORAL packet One packet daily in 8oz of water. Meds Comments as of 03/19/2009: All medications reviewed today 03/19/09 Citlali Alvarez, RACHEAL Problem List As Of Date 02/29/2024 Noted Resolved Cervicalgia [M54.2] 03/21/2008 Other and unspecified hyperlipidemia [E78.5] 03/12/2009 Depressive disorder, not elsewhere classified [*12/13/2010 Encounter Status:Closed by FRANCI FLETCHER on 02/29/24 [facility] CNOVon 02-26-2024 CNOV Office Visit (UROSMN ) -------- SALUDSAQIB MCCANN ([id number]) 1965 M Date Time Provider Department 02/26/24 10:00 AM TAVO GARZA UROSMN During your visit today, we recorded the following information about you: Tavo Garza MD 02/26/2024 11:42 AM Signed February 26, 2024 Saqib Brannon [id number] 1965 PENILE DUPLEX DOPPLER ULTRASOUND (PDDUS) Penile ultrasound -- CPT 17439 Penile injection for erection -- CPT 12225 Injection for reversal of erection -- CPT 36481 Associated Conditions: Peyronie's Disease Patient underwent penile duplex ultrasound procedure with pulsed Doppler analysis following vasoactive medication in order to objectively define and understand the underlying cause and degree of sexual dysfunction. The benefits and risks of the procedure were discussed with the patient, and all questions were answered to the patient's satisfaction. Verbal consent for the procedure was obtained from the patient. The patient was placed on the procedure table in the supine position. Medication: Prostaglandin E1 20 mcg intracavernous injection. Redosing: No Procedure: A baseline penile examination was performed: Stretched penile length (pubis to cochran): 11 cm Palpable plaques: Yes, dorsal The penis was scanned in the flaccid state (baseline) with images obtained both transversely and longitudinally. Plaque calcifications: No Calcification grade: n/a Size of calcification: n/a The cavernosal artery diameter was measured at baseline. Pharmacologic injection of erectogenic agent was performed. After 10 minutes the penis was rescanned and the cavernosal arteries were measured again to assess distensibility in response to the vasoactive medication. (A 100% increase in diameter is normally expected.) Cavernosal Artery Diameter Measurements: Left Cavernosal Artery (LCA): Baseline measurement: 1.39 mm 2nd measurement: 1.07 mm Right Cavernosal Artery (RCA): Baseline measurement: 0.88 mm 2nd measurement: 1.19 mm Each of the selectively imaged arteries underwent penile Doppler analysis with generation of waveform approximately 10 minutes following injection of vasoactive agents. The peak systolic velocity and the end-diastolic velocity data of the corporal arteries are tabulated below. (A velocity of 30 cm/sec or more is normally expected for peak systolic velocity and a velocity of 0-3 cm/sec is normally expected for the end-diastolic velocity.) Resistive Index (RI) parameters were obtained bilaterally (normal 1.00). Cavernosal Artery Velocity (V) Measurements: Left Cavernosal Artery (LCA) V: Peak systolic velocity: 104.18 cm/second --> 17.04 distaly End diastolic velocity: 11.7 cm/second --> 0 distally Resistive index: 0.89 Right Cavernosal Artery (RCA) V: Peak systolic velocity: 82.06 cm/second --> 26.2 distal End diastolic velocity: 11.9 cm/second --> 12.25 distal Resistive index: 0.85 --> 0.53 distal POST INJECTION PENILE EXAM: Deformity present: Yes Curvature and direction: dorsal 50 deg Differential girth: Base: 13 cm Distal: 11 cm Indentation: No Narrowing: Yes Hourglass: No Hinge effect: Yes BQE Achieved: Yes Erection grade (0-10): 7 Spontaneous Detumescence: No Phenylephrine Required: Yes, 800mcg Adverse Reactions: No Sign Out Details of Procedure: Listed Above Sign Out Discussion: Completed IMPRESSION: Arterial Distensibility Normal Arterial Peak Flow Velocities: Normal End Diastolic Velocities/Resistive Index: Abnormal and Consistent with Corporal Veno-occlusive Dysfunction Peyronie's Plaque and Curvature Yes CLASSIFICATION OF ERECTILE DYSFUNCTION*: Vasculogenic - Cavernosal: i.e. tunica albuginae, cavernous muscle, endothelium, emissary vein, fibroelastic trabeculae (*Kushal et al., Urology, August 1991, Volume 42, No. 4) PLAN: Detumescence was observed and the patient was discharged with a flaccid penis. Patient was advised to go to the emergency room immediately and notify our office should an erection occur and last more than 4 hours. Pt has venous leak distally and also hinge effect, moderate curvature and distal narrowing which all contributing to bother. Tried and failed PDE5i. Due to the presence of both Peyronie's disease and erectile dysfunction, I recommend penile prosthesis implantation with straightening maneuvers. We would begin by placing the penile prosthesis via a penoscrotal incision. If there is residual curvature with full inflation of the device, we would perform manual modeling. Discussed r/b/a at length. Other treatment alternatives were also presented including observation, a DONNA, penile traction therapy, Xiaflex and ED therapy with oral agents were also presented to the patient. I explained that this is not a penis lengthening procedure, and that his penile length may already be reduced from Peyronie's disease and c (more content not included)... Normal [facility] US.doppler Penis vesselson 0 02-26-2024 [facility] Radiology Study observation (narrative) [facility] CNOVon 02-22-2024 CNOV Office Visit (UROLIN ) -------- SAQIB BRANNON ([id number]) 1965 M Date Time Provider Department 02/22/24 1:40 PM TAVO GARZA During your visit today, we recorded the following information about you: Tavo Garza MD 02/22/2024 2:18 PM Signed Saqib Brannon Referred by: No referring provider defined for this encounter. 02/22/2024 CC: Peyronie's Disease HPI: 58 year old, male presents for evaluation of Peyronie's Disease. Onset: 2 years Trauma: No Degree AND direction of Curvature: up about 90 degrees Erections Painful: ache Painful at baseline: No Partner bothered?: Yes Duration of stability: 1 year Length loss (inches): yes; lost about half of length Narrowing: No Indentation: No Hourglass deformity: No Instability/hinge effect: Yes On ED meds?: no Erections (baseline): 7/10 Very difficult to tell based on curvature Libido intact: Yes Orgasm/ejaculation intact: Yes Sensation intact: Yes Overall energy level: yes Prostate Cancer: No Currently taking Nitrates: No ROS: Urinary sx: none Hematuria: none Nondiabetic Nonsmoker Peyronie's Disease Questionnaire (PDQ) INSTRUCTIONS: The purpose of this questionnaire is to identify any problems you may be having with erection or vaginal intercourse. Some of the questions apply to vaginal intercourse with a female partner, others do not. Vaginal [employer] within the last 3 months: Yes -If yes, how many times have your had vaginal intercourse in the last 3 months? 3 -If yes, what was the date of the last time you had vaginal intercourse? 01/2024 Men with Peyronie?s disease may have problems during vaginal intercourse. The questions below ask about the severity of any problems that you may be having during vaginal [employer]. For each problem below, please pauma the number that best describes how severe the problem was THE LAST TIME YOU HAD VAGINAL INTERCOURSE. Q1. Concern about damaging penis while having vaginal intercourse: 0- None Q2. Bending or collapsing of penis while having vaginal intercourse: 4- Very Severe Q3. Trouble inserting erect penis into partner?s vagina: 4- Very Severe Q4. Difficulty with some positions that you used to enjoy when having vaginal intercourse: 4- Very Severe Q5. Awkwardness with some positions that you used to enjoy when having vaginal intercourse: 4- Very Severe Q6. Discomfort with some positions that you used to enjoy when having vaginal intercourse: 4- Very Severe Thinking of your last erection or the last time you had vaginal intercourse, please indicate the level of pain or discomfort you felt. (0-10; 0= No Pain or Discomfort- 10= Extreme Pain for Discomfort) Q7. In the LAST 24 HOURS, how much pain or discomfort have you felt in your penis when it was NOT erect? Please answer for the LAST 24 HOURS only. 1 Q8. Thinking about the LAST TIME you were erect, how much pain or discomfort did you feel in your penis when it was erect? Please answer for the LAST TIME YOU HAD AN ERECTION. 4 Q9. Thinking about the LAST TIME you had vaginal intercourse, how much pain or discomfort did you feel in your penis when having vaginal intercourse? Please answer for the LAST TIME YOU HAD VAGINAL INTERCOURSE. 3 Men with Peyronie?s disease may have problems with erection and/or vaginal intercourse. These problems can be bothersome for some men and not for others. Q10. Thinking about the LAST TIME you had an erection, how bothered were you by any pain or discomfort you may have felt in your erect penis? Please answer for the LAST TIME YOU HAD AN ERECTION. A little bit bothered -(if 'did not feel any pain or discomfort,' got to Q11) Q11. Thinking about the LAST TIME you looked at your erect penis, how bothered were you by the way your penis looked? Please answer for the LAST TIME YOU HAD AN ERECTION. Very bothered Q12. Does your Peyronie?s Disease make having vaginal intercourse difficult or impossible? Yes -If NO: go to Q14; If YES: go to Q13 Q13. Thinking of the LAST TIME you had or tried to have vaginal intercourse, how bothered were you by your Peyronie?s Disease? Very bothered Q14. Are you having vaginal intercourse LESS OFTEN than you used to due to your Peyronie?s Disease? Yes -If NO: end questionnaire; If YES: go to Q15 Q15. How bothered are YOU with having vaginal intercourse less often? Very bothered Patient Entered Questionnaires PROMIS Global Health 02/22/2024 PROMIS Global Health Scale Physical Health Percentile 31 Mental Health Percentile 34 Percentiles provide an indication of how the patient's score ranks in relation to the general population. Higher percentile rankings indicate better function/quality of life. 50th percentile is the average of the general population and indicates half of respondents had a worse score. PAST MEDICAL HISTORY Diagnosis Date (more content not included)... Normal [facility] Basic Metabolic Profile (BMP )on 02-15-2024 BUN/CRE 20.9 RATIO High 10-20 [facility] Comment on above: Performed By: #### L 500.2500, L500.4100 #### [facility] [address] [place], [address] CA,Total 8.7 mg/dL Normal 8.5-10.1 [facility] Comment on above: Performed By: #### L 500.2500, L500.4100 #### [facility] [address] [place], [address] Chloride [Moles/Vol] 109 mmol/L High 98-107 [facility] Comment on above: Performed By: #### L 500.2500, L500.4100 #### [facility] [address] [place], [address] CO2 [Moles/Vol] 28.0 mmol/L Normal 21.0-32.0 [facility] Comment on above: Performed By: #### L 500.2500, L500.4100 #### [facility] [address] [place], [address] Creatinine [Mass/Vol] 0.91 mg/dL Normal 0.70-1.30 [facility] Comment on above: Result Comment: The validity of the calculated GFR GFRAA in patients over 70 years has not been determined. Clinical correlation is essential. Performed By: #### L 500.2500, L500.4100 #### [facility] [address] [place], [address] EST GFR - AA 110 mL/min Normal >60 [facility] Comment on above: Result Comment: Afri can Irish GFR Calc Performed By: #### L 500.2500, L500.4100 #### [facility] [address] [place], [address] GAP 5 Normal 5-15 [facility] Comment on above: Performed By: #### L 500.2500, L500.4100 #### [facility] [address] [place], [address] GFR/1.73 sq M.predicted among non-blacks MDRD (S/P/Bld) [Vol rate/Area] 91 mL/min/{1.73_m2} Normal >60 [facility] Comment on above: Result Comment: Non- GFR Calc Performed By: #### L 500.2500, L500.4100 #### [facility] [address] [place], [address] Glucose [Mass/Vol] 108 mg/dL High 74-106 [facility] Comment on above: Result Comment: Fast ing Glucose result from 100 to 125 mg/dL suggests IMPAIRED HOMEOSTASIS per A.D.A. criteria. Performed By: #### L 500.2500, L500.4100 #### [facility] [address] [place], [address] Potassium [Moles/Vol] 4.3 mmol/L Normal 3.5-5.1 [facility] Comment on above: Performed By: #### L 500.2500, L500.4100 #### [facility] [address] [place], [address] Sodium [Moles/Vol] 142 mmol/L Normal 136-145 [facility] Comment on above: Performed By: #### L 500.2500, L500.4100 #### [facility] [address] [place], [address] Urea nitrogen [Mass/Vol] 19 mg/dL High 7-18 [facility] Comment on above: Performed By: #### L 500.2500, L500.4100 #### [facility] [address] [place], [address] Basophil percentageOrdered B y: Chase Curiel on 02-15-2024 Chloride [Moles/Vol] 109 mmol/L 98-107 [facility] Cholesterol [Mass/Vol] 215 mg/dL <200 [facility] Comment on above: <200 mg/dL Desirable 200-240 mg/dL Borderline >240 mg/dL High Risk Glucose [Mass/Vol] 108 mg/dL 74-106 [facility] Comment on above: Fasting Glucose resu lt from 100 to 125 mg/dL suggests IMPAIRED HOMEOSTASIS per A.D.A. criteria. Potassium [Moles/Vol] 4.3 mmol/L 3.5-5.1 [facility] Sodium [Moles/Vol] 142 mmol/L 136-145 [facility] Triglyceride [Mass/Vol] 211 mg/dL <199 [facility] Comment on above: The drugs N-Acetylcy steine and Metamizole may falsely depress this assay.Serum Triglycerides Reference Interval Normal <150 mg/dL Borderline high 150 - 199 mg/dL High 200 - 499 mg/dL Very High > or = 500 mg/dL Laboratory - Chemistry and C hemistry - challengeOrdered By: Chase Curiel on 02-15-2024 Cholesterol in HDL [Mass/Vol] 57 mg/dL >40 [facility] Comment on above: The drugs N-Acetylcy steine and Metamizole may falsely depress this assay. Reference Range HDL <40 mg/dL Low HDL Cholesterol HDL >or= 60 mg/dL High HDL Cholesterol Cholesterol in LDL [Mass/Vol] 116 mg/dL 0-130 [facility] CO2 [Moles/Vol] 28.0 mmol/L 21.0-32.0 [facility] Urea nitrogen/Creatinine [Mass ratio] 20.9 mg/mg 10-20 [facility] Lipid Profileon 02-15-2024 Cholesterol [Mass/Vol] 215 mg/dL High 200 [facility] Comment on above: Result Comment: <200 mg/dL Desirable 200-240 mg/dL Borderline >240 mg/dL High Risk Performed By: #### L 500.2500, L500.4100 ####[facility] [address] [place], [address] Cholesterol in HDL [Mass/Vol] 57 mg/dL Normal [facility] Comment on above: Result Comment: The drugs N-Acetylcysteine and Metamizole may falsely depress this assay. Reference Range HDL <40 mg/dL Low HDL Cholesterol HDL >or= 60 mg/dL High HDL Cholesterol Performed By: #### L 500.2500, L500.4100 ####[facility] [address] [place], [address] Cholesterol in LDL [Mass/Vol] 116 mg/dL Normal 0-130 [facility] Comment on above: Performed By: #### L 500.2500, L500.4100 ####[facility] [address] [place], [address] Cholesterol in VLDL [Mass/Vol] 42 mg/dL High 5-40 [facility] Comment on above: Performed By: #### L 500.2500, L500.4100 ####[facility] [address] [place], [address] Triglyceride [Mass/Vol] 211 mg/dL High [facility] Comment on above: Result Comment: The drugs N-Acetylcysteine and Metamizole may falsely depress this assay. Serum Triglycerides Reference Interval Normal <150 mg/dL Borderline high 150 - 199 mg/dL High 200 - 499 mg/dL Very High > or = 500 mg/dL Performed By: #### L 500.2500, L500.4100 ####[facility] [address] [place], [address] No Panel InformationOrdered By: Chase Curiel on 02-15-2024 Estimated GFR (MDRD) Amer 110 mL/min >60 [facility] Comment on above: GFR Calc Estimated GFR (MDRD) Non-Af Amer 91 mL/min >60 [facility] Comment on above: Non- GFR Calc VLDL Cholesterol 42 mg/dL 5-40 [facility] Serum or plasma calcium garcía urement (mass/volume)Ordered By: Chase Curiel on 02-15-2024 Calcium [Mass/Vol] 8.7 mg/dL 8.5-10.1 [facility] Serum or plasma creatinine m easurement (mass/volume)Ordered By: Chase Curiel on 02-15-2024 Creatinine [Mass/Vol] 0.91 mg/dL 0.70-1.30 [facility] Comment on above: The validity of the calculated GFR & GFRAA in patients over 70 years has not been determined. Clinical correlation is essential. Serum or plasma urea nitroge n measurement (mass/volume)Ordered By: Chase Curiel on 02-15-2024 Urea nitrogen [Mass/Vol] 19 mg/dL 7-18 [facility] Thin prep Papanicolaou smear with manual screeningOrdered By: Chase Curiel on 02-15-2024 Thin prep Papanicolaou smear with manual screening 5 -15 [facility] Basophil percentageOrdered B y: Dr. Curiel on 01-28-2023 Chloride [Moles/Vol] 108 mmol/L 98-107 [facility] Cholesterol [Mass/Vol] 208 mg/dL <200 [facility] Comment on above: <200 mg/dL Desirable 200-240 mg/dL Borderline >240 mg/dL High Risk Glucose [Mass/Vol] 103 mg/dL 74-106 [facility] Comment on above: Fasting Glucose resu lt from 100 to 125 mg/dL suggests IMPAIRED HOMEOSTASIS per A.D.A. criteria. Potassium [Moles/Vol] 4.0 mmol/L 3.5-5.1 [facility] Sodium [Moles/Vol] 140 mmol/L 136-145 [facility] Testosterone [Mass/Vol] 237.38 ng/dL [facility] Comment on above: CENTRAL 90% REFERENC E RANGES MALE AGE <50 197.44 - 669.58 ng/dL MALE AGE > or = 50 187.72 - 684.19 ng/dL FEMALE AGE <50 8.38 - 35.01 ng/dL FEMALE AGE > or = 50 <7.00 - 35.92 ng/dL Effective as of 05/28/21 Triglyceride [Mass/Vol] 185 mg/dL <199 [facility] Comment on above: The drugs N-Acetylcy steine and Metamizole may falsely depress this assay.Serum Triglycerides Reference Interval Normal <150 mg/dL Borderline high 150 - 199 mg/dL High 200 - 499 mg/dL Very High > or = 500 mg/dL Laboratory - Chemistry and C hemistry - challengeOrdered By: Dr. Curiel on 01-28-2023 CO2 [Moles/Vol] 26.0 mmol/L 21.0-32.0 [facility] Urea nitrogen/Creatinine [Mass ratio] 26.8 mg/mg 10-20 [facility] No Panel InformationOrdered By: Dr. Curiel on 01-28-2023 Estimated GFR (MDRD) Amer 138 mL/min >60 [facility] Comment on above: GFR Calc Estimated GFR (MDRD) Non-Af Amer 114 mL/min >60 [facility] Comment on above: Non- GFR Calc Prostate Specific Antigen Total 0.34 ng/mL 0.0-4.0 [facility] Comment on above: This test was perfor med using the TPSA assay method for the[employer] chemistry system. Values obtained with differentassay methods cannot be used interchangably.When changing PSA assays in the course of monitoring apatient, additional sequential testing should be carriedout to confirm baseline values. Serum or plasma calcium garcía urement (mass/volume)Ordered By: Dr. Curiel on 01-28-2023 Calcium [Mass/Vol] 8.6 mg/dL 8.5-10.1 [facility] Serum or plasma cholesterol in HDL measurement (mass/volume)Ordered By: Dr. Curiel on 01-28-2023 Cholesterol in HDL [Mass/Vol] 56 mg/dL >40 [facility] Comment on above: The drugs N-Acetylcy steine and Metamizole may falsely depress this assay. Reference Range HDL <40 mg/dL Low HDL Cholesterol HDL >or= 60 mg/dL High HDL Cholesterol Serum or plasma cholesterol in VLDL measurement (mass/volume)Ordered By: Dr. Curiel on 01-28-2023 Cholesterol in VLDL [Mass/Vol] 37 mg/dL 5-40 [facility] Serum or plasma creatinine m easurement (mass/volume)Ordered By: Dr. Curiel on 01-28-2023 Creatinine [Mass/Vol] 0.75 mg/dL 0.70-1.30 [facility] Comment on above: The validity of the calculated GFR & GFRAA in patients over 70 years has not been determined. Clinical correlation is essential. Serum or plasma low density lipoprotein (LDL) cholesterol measurement (mass/volume)Ordered By: Dr. Curiel on 01-28-2023 Cholesterol in LDL [Mass/Vol] 115 mg/dL 0-130 [facility] Serum or plasma urea nitroge n measurement (mass/volume)Ordered By: Dr. Curiel on 01-28-2023 Urea nitrogen [Mass/Vol] 20 mg/dL 7-18 [facility] Thin prep Papanicolaou smear with manual screeningOrdered By: Dr. Curiel on 01-28-2023 Thin prep Papanicolaou smear with manual screening 6 5-15 [facility] Vital Signs Date Time Vital Sign Value Performing Clinician Joellei kylie 04-24-2025 11:010400 Body height 177.8 cm Sandro Bragg MD Work Phone: [facility] 04-24-2025 11:01-0400 Body mass index (BMI) [Ratio] 28.12 kg/m2 Sandro Bragg MD Work Phone: [facility] 04-24-2025 11:01-0400 Body weight 88.91 kg Sandro Bragg MD Work Phone: [facility] 04-24-2025 11:01-0400 SaO2% (BldA) [Mass fraction] 97 % Sandro Bragg MD Work Phone: [facility] 01-23-2025 12:48-0400 Body height 177.8 cm Cecilia-Farheen Selena D[employer]ESTER [employer] Work Phone: [facility] 01-23-2025 12:48-0400 Body mass index (BMI) [Ratio] 26.98 kg/m2 Cecilia-Farheen Selena DIGESTER [employer] OFFICER Work Phone: [facility] 01-23-2025 12:48-0400 Body weight 85.28 kg Cecilia-Farheen Selena D[employer]ESTER [employer] OFFICER Work Phone: [facility] 01-23-2025 12:48-0400 Heart rate 70 /min Cecilia-Farheen Selena D[employer]ESTER [employer] OFFICER Work Phone: [facility] 01-23-2025 12:48-0400 SaO2% (BldA) [Mass fraction] 96 % Cecilia-Farheen Selena D[employer]ESTER [employer] OFFICER Work Phone: [facility] 07-27-2024 10:40-0400 Body height 177.8 cm Promise Godinez DIGESTER [employer] OFFICER Work Phone: [facility] 07-27-2024 10:40-0400 Body mass index (BMI) [Ratio] 26.41 kg/m2 Promise Riepenhekaterina DIGESTER [employer] OFFICER Work Phone: [facility] 07-27-2024 10:40-0400 Body weight 83.5 kg Promise Godinez DIGESTER [employer] OFFICER Work Phone: [facility] 09-08-2022 09:24-0500 Diastolic blood pressure 91 mm[Hg] Shey Chandra MD Work Phone: [facility] 09-08-2022 09:24-0500 Heart rate 64 /min Shey Chandra MD Work Phone: [facility] 09-08-2022 09:24-0500 Systolic blood pressure 136 mm[Hg] Shey Chandra MD Work Phone: [facility] 06-09-2022 09:11-0400 Diastolic blood pressure 84 mm[Hg] Shey Chandra MD Work Phone: [facility] 06-09-2022 09:11-0400 Heart rate 64 /min Shey Chandra MD Work Phone: [facility] 06-09-2022 09:11-0400 SaO2% (BldA) [Mass fraction] 95 % Shey Chandra MD Work Phone: [facility] 06-09-2022 09:11-0400 Systolic blood pressure 134 mm[Hg] Shey Chandra MD Work Phone: [facility] Encounters Encounter Date Encounter Type Care Provider Facility Start: 05-30-2025 ambulatory CHASE CURIEL Facility :[facility] Start: 05-09-2025 ambulatory SANDRO BRAGG [facility] ity:[facility] Start: 05-09-2025 Encounter for other preprocedural examination SANDRO BRAGG Facility:[facility] Start: 04-24-2025 End: 04-24-2025 Office outpatient visit 40 minutes Sandro Bragg MD Work Phone: [facility] Comment on above: Peyronie's disease ( Primary Dx); Penile fracture, sequela; Other male erectile dysfunction Start: 04-24-2025 ambulatory CHASE CURIEL Facility :[facility] Start: 02-13-2025 End: 02-13-2025 ambulatory Chase Curiel Facility:[facility] Start: 01-23-2025 End: 01-23-2025 Office outpatient new 30 minutes Brit Naidu [employer] Work Phone: [facility] Comment on above: Peyronie's disease ( Primary Dx); Penile fracture, sequela; Other male erectile dysfunction Start: 01-23-2025 ambulatory CHASE R CURIEL Facility :[facility] Start: 11-28-2024 End: 11-28-2024 ambulatory Chase Curiel Facility:[facility] Start: 08-16-2024 End: 08-16-2024 ambulatory Chase Lomelielsen Facility:[facility] Start: 08-02-2024 ambulatory Facility:[facility] Start: 08-01-2024 End: 08-02-2024 ambulatory Franci Fletcher RN Work Phone: Urology Start: 08-01-2024 End: 08-01-2024 Telephone encounter Franci Fletcher RN Work Phone: Urology Comment on above: Patient Update Start: 07-27-2024 End: 07-27-2024 ambulatory SELF Facility:[facility] Start: 07-27-2024 End: 07-27-2024 Patient encounter procedure Promise Godinez APRN.CNP Work Phone: Urology Comment on above: Fracture of corpus c avernosum penis, sequela (Primary Dx); Peyronie's disease; Erectile dysfunction, unspecified erectile dysfunction type Start: 07-23-2024 End: 07-23-2024 Emergency department patient visit Chase Curiel Facility:[facility] Start: 07-21-2024 ambulatory Chase Curiel Facility:[facility] Start: 07-21-2024 ambulatory Chase Curiel Facility:[facility] Start: 07-21-2024 End: 07-21-2024 ambulatory Chase Curiel Facility:[facility] Start: 07-01-2024 ambulatory Chase Curiel Facility:[facility] Start: 06-21-2024 End: 06-21-2024 ambulatory Chase Curiel Facility:[facility] Start: 06-21-2024 End: 06-21-2024 ambulatory Chase Lomelielsen Facility:[facility] Start: 04-27-2024 ambulatory Chase Curiel Facility:[facility] Start: 04-27-2024 End: 04-27-2024 ambulatory Chase Curiel Facility:[facility] Start: 03-07-2024 Telephone encounter Franci guzmán RN Work Phone: Urology Comment on above: Patient Update Start: 02-29-2024 Telephone encounter Franci guzmán RN Work Phone: Urology Comment on above: Patient Update Start: 02-26-2024 End: 02-26-2024 Patient encounter procedure Tavo Garza MD Work Phone: Urology Comment on above: Peyronie's disease ( Primary Dx); Erectile dysfunction of organic origin Start: 02-26-2024 End: 02-26-2024 ambulatory [facility] Facility:[facility] Start: 02-22-2024 End: 02-22-2024 Patient encounter procedure Tavo Garza MD Work Phone: Urology Comment on above: Peyronie's disease ( Primary Dx); ED (erectile dysfunction) of organic origin Start: 02-22-2024 End: 02-22-2024 ambulatory [facility] Facility:[facility] Start: 02-15-2024 End: 02-15-2024 ambulatory [facility] Work Phone: Start: 02-15-2024 End: 02-15-2024 Patient encounter procedure [facility] Start: 02-15-2024 End: 02-15-2024 ambulatory Chase Curiel Facility:[facility] Start: 03-12-2023 Non-patient / Non-visit Dr. Grabiel Curiel Work Phone: [facility] Start: 03-12-2023 End: 03-12-[address] Chase Curiel Work Phone: [facility] Work Phone: Start: 03-12-2023 End: 03-12-[address] Chase Curiel Work Phone: [facility] Start: 01-28-2023 End: 01-28-2023 ambulatory [facility] Work Phone: Start: 01-28-2023 End: 01-28-2023 Patient encounter procedure [facility] Start: 12-08-2022 End: 12-08-2022 ambulatory CHASE CURIEL [facility] Start: 09-08-2022 End: 09-08-2022 ambulatory CHASE CURIEL [facility] Start: 09-08-2022 End: 09-08-2022 Office outpatient visit 25 minutes Shey Chandra MD Work Phone: [facility] Comment on above: Mixed erectile dysfu nction (Primary Dx); Peyronie disease Start: 06-09-2022 End: 06-09-2022 ambulatory SHEY CHANDRA [facility] Start: 06-09-2022 End: 06-09-2022 Office outpatient new 45 minutes Shey Chandra MD Work Phone: [facility] Comment on above: Mixed erectile dysfu nction (Primary Dx); Peyronie disease Start: 04-29-2022 ambulatory [facility]DR[facility] Procedures Date Procedure Procedure Detail Performing Clinician Start: 02-26-2024 Dup-scan artl infl&v en o/f pen vsl compl Tavo Garza MD Work Phone: Start: 03-12-2023 CT angiography of co ronary arteries Dr. Chase Curiel Work Phone: Start: 01-28-2023 Radiologic examinati on of knee Start: 01-28-2023 X-ray of cervical spine Start: 11-25-2011 Lipid 1996 panel - S maxime or Plasma Tavo Garza MD Work Phone: Plan of Treatment Date Care Activity Detail Author Start: 2039 RSV VACCINE (1 - 1-d ose 75+ series) RSV VACCINE (1 - 1-dose 75+ series) [facility] Start: 02-14-2034 Tetanus vaccination TETANUS [facility] Start: 02-14-2034 Urine microalbumin profile [facility] Start: 02-10-2029 Tetanus vaccination Tetanus: Every 1 0yrs [facility] Start: 02-17-2025 End: 02-17-2025 Patient encounter procedure 02/17/2025 11:15 AM EDT Office Visit [facility] [address] [place] [id number] Sandro Bragg MD [address] [facility] [address] [place] [address] [facility] Start: 08-16-2024 End: 08-16-2024 Admission to same day surgery center 08/16/2024 12:01 PM EDT - 08/16/2024 3:13 PM EDT Surgery Admitting [address] [place] [address] Tavo Garza MD [address] [place] [address] INFLATABLE PENILE PROSTHESIS IMPLANTATION, AMS 700cx, penoscrotal Admitting Comment on above: INFLATABLE PENILE VT OSTHESIS IMPLANTATION, AMS 700cx, penoscrotal Start: 08-16-2024 End: 08-16-2024 Insj multi-component inflatable penile prosth INSERTION PROSTHESIS PENILE INFLATABLE MULTI-COMPONENT Fracture of corpus cavernosum penis, sequela Peyronie's disease 08/16/2024 12:01 PM EDT [facility] Start: 08-16-2024 End: 08-16-2024 Plastic rpr penis correct angulation PLASTIC OP ON PENIS TO CORRECT ANGULATION Fracture of corpus cavernosum penis, sequela Peyronie's disease 08/16/2024 12:01 PM EDT [facility] Start: 08-16-2024 Subsequent hospital visit by physician 08/16/2024 12:01 PM EDT Hospital Encounter Admitting [address] [place] [address] Tavo Garza MD [address] [place] [address] Fracture of corpus cavernosum penis, sequela [S39.840S], Peyronie's disease [N48.6] Admitting Comment on above: Fracture of corpus c avernosum penis, sequela [S39.840S], Peyronie's disease [N48.6] Start: 08-16-2024 End: 08-16-2024 Admission to same day surgery center 08/16/2024 7:30 AM EDT - 08/16/2024 10:27 AM EDT Surgery Admitting [address] [place] [address] Tavo Garza MD [address] [place] [address] INFLATABLE PENILE PROSTHESIS IMPLANTATION, AMS 700cx, penoscrotal Admitting Comment on above: INFLATABLE PENILE VT OSTHESIS IMPLANTATION, AMS 700cx, penoscrotal Start: 08-16-2024 End: 08-16-2024 Insj multi-component inflatable penile prosth INSERTION PROSTHESIS PENILE INFLATABLE MULTI-COMPONENT Fracture of corpus cavernosum penis, sequela Peyronie's disease 08/16/2024 7:30 AM EDT [facility] Start: 08-16-2024 End: 08-16-2024 Plastic rpr penis correct angulation PLASTIC OP ON PENIS TO CORRECT ANGULATION Fracture of corpus cavernosum penis, sequela Peyronie's disease 08/16/2024 7:30 AM EDT [facility] Start: 08-16-2024 Subsequent hospital visit by physician 08/16/2024 7:30 AM EDT Hospital Encounter Admitting [address] [place] [address] Tavo Garza MD [address] [place] [address] Fracture of corpus cavernosum penis, sequela [S39.840S], Peyronie's disease [N48.6] Admitting Comment on above: Fracture of corpus c avernosum penis, sequela [S39.840S], Peyronie's disease [N48.6] Start: 08-09-2024 End: 08-09-2024 ambulatory 08/09/2024 11:15 AM EDT Results Only [facility] [address] [place] [address] Lab Pre-Op [facility] Comment on above: Lab Pre-Op Start: 08-09-2024 End: 08-09-2024 Anesthesia consultation 08/09/2024 8:40 AM EDT PAT Pre Anesthesia [address] [place] [address] 2, Pacc [facility] [address] [place] [address] Pre-Op, 08/16/2024, Dr. Garza Pre Anesthesia Comment on above: Pre-Op, 08/16/2024, Dr. Garza Start: 08-01-2024 End: 10-31-2024 Basic metabolic 2000 panel - Serum or Plasma BASIC METABOLIC PANEL Lab Routine Fracture of corpus cavernosum penis, sequela Peyronie's disease Expected: 08/01/2024, Expires: 10/31/2024 [facility] Comment on above: Expected: 08/01/2024 , Expires: 10/31/2024 Start: 08-01-2024 End: 10-31-2024 CBC panel - Blood by Automated count COMPLETE BLOOD COUNT Lab Routine Fracture of corpus cavernosum penis, sequela Peyronie's disease Expected: 08/01/2024, Expires: 10/31/2024 [facility] Work Phone: Comment on above: Expected: 08/01/2024 , Expires: 10/31/2024 Start: 07-03-2024 Covid-19 Vaccine ( season) Covid-19 Vaccine ( season) [facility] Start: 07-03-2024 Influenza vaccination C [facility] Start: 02-26-2024 End: 02-26-2024 Patient encounter procedure 02/26/2024 10:00 AM EDT Office Visit Urology [address] [address] Tavo Garza MD [address] [place] [address] penile doppler Urology Comment on above: penile doppler Start: 01-10-2024 Diabetes Screening Diabetes Screenin g [facility] Start: 07-03-2023 Covid-19 Vaccine () Covid-19 Vaccine () [facility] Start: 12-08-2022 End: 12-08-2022 Patient encounter procedure 12/08/2022 Office Visit Urology Shey Chandra MD [address] [place] [address] [facility] Start: 09-08-2022 End: 09-08-2022 Patient encounter procedure 09/08/2022 Office Visit Urology Shey Chandra MD [address] [place] [address] [facility] Start: 07-03-2022 Influenza vaccination Sequenti al Influenza Vaccine (#1) [facility] Start: 02-08-2022 COVID-19 Vaccine (4 - Booster for Moderna series) COVID-19 Vaccine (4 - Booster for Moderna series) [facility] Start: 12-05-2021 COVID-19 Vaccine (4 - Booster for Moderna series) COVID-19 Vaccine (4 - Booster for Moderna series) [facility] Start: 2019 Prostate specific antigen measurement Prostate Cancer Screening Discussion [facility] Start: 11-25-2016 Lipid panel Lipid Screening [facility] Start: 2014 Screening for malign ant neoplasm of colon Flexible sigmoidoscopy [facility] Start: 2009 Screening for malign ant neoplasm of colon [facility] Start: 2004 Lipid panel LIPID SCREENING [facility] Start: 1982 Anxiety Screening Anxiety Screening [facility] Start: 1982 Hepatitis C screening Hepatitis C Sc reening [facility] Start: 1982 HIV screening HIV Screening [facility] Start: 1979 HIV screening [facility] Start: 1976 Depression screening using PHQ-9 (Patient Health Questionnaire 9) score Depression Screening (PHQ-2/9) [facility] Start: 1970 Pneumococcal Vaccine : Ped or At-Risk (1 - PCV) Pneumococcal Vaccine: Ped or At-Risk (1 - PCV) [facility] Start: 1967 History and physical examination, annual for health maintenance Wellness Visit [facility] Start: 1964 Hepatitis C screening HEPATITI S C VIRUS SCREENING [facility] Start: 1964 Prostate specific antigen measurement PSA Level [facility] Start: 1964 Screening for malign ant neoplasm of colon [facility] End: 08-01-2025 ECG COMPLETE ECG COMPLETE ECG Routine Fracture of corpus cavernosum penis, sequela Peyronie's disease 1 Occurrences starting 08/01/2024 until 08/01/2025 [facility] Comment on above: 1 Occurrences starti ng 08/01/2024 until 08/01/2025 Insj multi-component inflatable penile prosth INSERTION PROSTHESIS PENILE INFLATABLE MULTI-COMPONENT Erectile dysfunction of organic origin [facility] PENILE DOPPLER UROLOGY PENILE DO PPLER UROLOGY Procedures Routine Peyronie's disease Ordered: 02/22/2024 [facility] Work Phone: Comment on above: Ordered: 02/22/2024 Immunizations Immunization Date Immunization Notes Care Provider Fa lola 10-04-2021 influenza virus vaccine, unspecified formulation Tavo Garza MD Work Phone: [facility] 02-10-2019 tetanus toxoid, redu ben diphtheria toxoid, and acellular pertussis vaccine, adsorbed [facility] 08-02-2011 influenza virus vaccine, unspecified formulation Tavo Garza MD Work Phone: [facility] 08-04-2009 influenza virus vaccine, unspecified formulation Tavo Garza MD Work Phone: [facility] Work Phone: 10-02-2004 tetanus and diphther ia toxoids, adsorbed, preservative free, for adult use (2 Lf of tetanus toxoid and 2 Lf of diphtheria toxoid) Tavo Garza MD Work Phone: [facility] Payers Date Payer Category Payer Self-pay [id number] 2020 Managed Care (unspecified) [facility] [id number] 2007 Unknown [id number] 2007 Unknown [id number] 1964 Unknown [id number] 2.16.840.1.432787.3.579. 2.903 1964 Unknown [id number] 2.16.840.1.807307.3.579. 2.903 1964 Unknown [id number] 2.16.840.1.880913.3.579. 2.903 1964 Unknown [id number] 2.16.840.1.662118.3.579. 2.594 1964 Unknown [id number] 2.16.840.1.345332.3.579. 2.594 1964 Unknown [id number] 2.16.840.1.428913.3.579. 2.594 1964 Unknown [id number] 2.16.840.1.097716.3.579. 2.594 Unknown [facility] [id number] Unknown [facility] [employer] [id number] Unknown [id number] 2.16.840.1.602723.3.579. 2.462 Unknown [id number] 2.16.840.1.954999.3.579. 2.462 Unknown [id number] 2.16.840.1.896223.3.579. 2.462 Unknown [id number] 2.16.840.1.762385.3.579. 2.462 Unknown [id number] 2.16.840.1.310921.3.579. 2.462 Unknown [id number] 2.16.840.1.526430.3.579. 2.462 Unknown [id number] 2.16.840.1.255626.3.579. 2.462 Unknown [id number] 2.16.840.1.068732.3.579. 2.462 Unknown [id number] 2.16.840.1.309748.3.579. 2.462 Unknown [id number] 2.16.840.1.528692.3.579. 2.462 Unknown [id number] 2.16840.1.199527.3.579. 2.462 Unknown [id number] 2.16840.1.588666.3.579. 2.462 Unknown [id number] 2.16840.1.014901.3.579. 2.462 Unknown [id number] 2.16840.1.098658.3.579. 2.462 Social History Date Type Detail Facility Start: 06-09-2022 Tobacco smoking stat [facility] Occasional tobacco smoker [facility] Start: 11-11-2020 History of tobacco use Cigar Smoker [facility] History of tobacco use Passive smoker [facility] Start: 06-09-2022 End: 04-24-2025 Tobacco use and exposure Smokeless tobacco non-user [facility] Start: 1965 Sex Assigned At Not on file [facility] Start: 05-30-2022 End: 09-08-2022 Exposure to SARS-CoV-2 (event) Not sure [facility] Start: 03-06-2021 Tobacco smoking stat [facility] Unknown if ever smoked [facility] Start: 06-16-[address] [place] [facility] Start: 06-16-[address] [place] [facility] Start: 06-16-2020 With Family [place] [facility] Start: 06-18-2020 Cigars [facility] Start: 1965 Sex Assigned At Male [facility] Tobacco smoking stat us NHIS Never smoked tobacco [facility] Start: 02-22-2024 End: 07-27-2024 Alcohol intake Current drinker of alcohol (finding) [facility] Start: 02-22-2024 End: 04-24-2025 History of Social function [facility] Start: 02-22-2024 End: 04-24-2025 Tobacco use panel [facility] National Score (1-100), lower number is lower risk 36 [facility] Start: 11-11-2020 End: 04-24-2025 Tobacco smoking status NHIS Heavy tobacco smoker [facility] Start: 01-09-2021 End: 04-24-2025 Alcoholic beverage intake Ex-drinker (finding) [facility] Start: 09-11-2020 Sex Male (finding) [facility] Clinical Notes 06-09-2022 to 04-24-2025 Sandro Bragg MD - 04/24/2025 11:15 AM EDTKimberly-Farheen Naidu APRN-TEJINDER - 01/23/2025 1:00 PM EDTTelephone Encounter - Franci Fletcher RN - 08/01/2024 9:21 AM EDT Note Date & Type Note Facility 04-24-2025 History of Presen t illness Narrative Subjective Saqib Brannon is a 59 y.o. male who presents for Follow-up History of Present Illness The patient presents for Peyronie's disease and erectile dysfunction. He has been diagnosed with Peyronie's disease, characterized by penile curvature. He is uncertain about the presence of Peyronie's disease in two distinct areas and seeks clarification on whether this would impact his treatment. He also reports a history of penile trauma or fracture, which occurred last year. He recalls an incident where he experienced a sensation of something breaking during sexual intercourse but did not seek immediate medical attention as there was no associated pain. However, he noticed changes the following day. He has been experiencing severe erectile dysfunction, which has not responded to medication. He had previously consulted the [facility] regarding a potential penile prosthesis, but the procedure was not performed due to insurance coverage issues. He reports that his insurance initially indicated coverage for the prosthesis, but later denied it, leading to significant confusion and frustration. He expresses concern about the potential complications of surgery due to the presence of scar tissue from previous penile trauma. He is interested in the possibility of penile prosthesis to address both Peyronie's disease and erectile dysfunction, understanding that the implant may result in some loss of penile length but will provide a functional erection. Pt has tried and failed Viagra and Cialis previously Review of Systems Objective Height 1.778 m (5' 10), weight 88.9 kg (196 lb), SpO2 97%. Physical Exam Exam: Inguinal: no lesions, adenopathy, or hernias Phallus: circumcised, no lesions. Showed patient his stretched penile length and discussed the importance of this. Meatus: orthotopic, patent, no discharge Scrotum: no lesions, normal rugae Testes: Descended, nontender, no masses bilaterally. Assessment & Plan Saqib Brannon is a 59 y.o. male with medically refractory ED and Peyronie's disease. The patient has a history of Peyronie's disease with significant curvature and erectile dysfunction. Various treatment options were discussed, with a penile implant being the most effective solution for both conditions. The implant will help correct the curvature and address erectile dysfunction. The potential risks, including mechanical failure and infection, were explained. Mechanical failure occurs in about 20% of cases within 10 years, while the infection risk is approximately 1-2%, especially given his non-diabetic status. The satisfaction rate for this procedure is high, with over 95% of patients reporting positive outcomes. The glans may remain soft post-implantation, but the shaft will achieve significant hardness. A reduction in penile length is expected due to the disease, erectile dysfunction, and the implant itself. The implant will be as large as the stretched penile length to prevent skin erosion or protrusion. The pump will be positioned between the testicles. He was advised to take a 2-week leave from work post-surgery and to avoid strenuous activities for an additional 1 to 2 weeks upon return. He was also informed about the ongoing study on implants and expressed interest in participating. If insurance does not cover the procedure, [place] payment is an option, or he can wait until he qualifies for Medicare. -schedule for IPP placement pending insurance coverage -pt enrolled in [employer] study We also discussed: Mechanical failure. The most recent studies report that mechanical failure occurs in 5- 10% of cases within 5 years, and that more than 80% of prostheses are still functioning by 10 years. Infection. Infection rates are approximately <1-2% for new implants and slightly higher for re-operations. Infection requires removal of the prosthesis. A new implant can be replaced immediately or after a period of healing, depending on circumstances. Bleeding. This procedure is not associated with a substantial risk of excessive bleeding, however it must be recognized that unexpected bleeding can occur with all operations, and when severe it may require a blood transfusion. This risk is extremely small for this operation. Chronic pain or discomfort. After the recovery period, the vast majority of men experience no unpleasant sensation at all from their penile prosthesis. However, all operations create some risk of long-term pain or discomfort. Decreased penile length or thickness. Some men will notice loss of length or thickness (girth) of the penis with placement of a penile prosthesis. Length loss is on average about 1/2 inch. Reduced length or thickness occurs most commonly from reduced elasticity of the tissues of the penis, scar tissue, prior surgery and weight gain. As a rule, your surgeon will place the largest device that fits properly within the penis. Reduced sensation (feeling) in the penis. This is rare. Standard techniques to insert the penile prosthesis avoid the nerves responsible for feeling in the penis. Change in shape - The overall shape or configuration of the penis is rarely altered as a result of placement of any type of prosthesis. But scar tissue may cause curvature, an indentation, or other deformities in the shape of the penis. In addition, when the implant is deflated (soft), it is often possible to feel the material of the implant inside the penis. Device erosion or migration. A rare complication is that the device may move out of proper position, may push into the urine passageway (urethra), or may become visible through the skin of the scrotum. These cases require an operation to correct the position of the device, or may require its removal. This problem occurs in <1% of cases. Injury to the penis, urethra, bladder, intestines, or other internal structures. These complications are extremely rare, but can occur with any operation in this region of the body, and may lead to loss of tissue, changes in urination or bowel habits, and may require surgical or other treatments. documented in this encounter [facility] 01-23-2025 History of Presen t illness Narrative Referring provider: Chase Curiel MD Chief Complaint Penile Curvature HPI Mr. Brannon is a 59 y.o. male with history of GERD,PRIETO who presents with penile curvature. Pt presented to the ER on 07/23/24 for concern for penile fracture. During intercourse pt felt a pop. No erection was lost and he could continue to have sex. Presented to the ER the next day with penile bruising and swelling. Pt denies any pain. No concerns with urination and no hematuria. There was no ability to do imagining at the [facility] to and he decided not to get trnaferred to another hospital. Erection was about a 7/10 at the base, but softer near the glans during the suspected penile fracture. He has had some spontaneous erections after the episode, but they are not as strong as they were. Pt has a hx of Peyronie's disease with penile doppler on 02/26/[address] Garza at [facility]- 50 degree dorsal curvature. He was to have an IPP scheduled, but has held off. He is not taking PDE5Is because he reports they do not provide much benefit. Unfortunately thus was not covered by insurance Upward curbed, denies any pain with erections. Has ED, took Sildenafil 200 mg PRN but states erectile rigidity 2/10. Lats week he attempted intercourse but unable to penetrate due to curved. Sexual Function Interest in sexual relations: normal Sexual desire/Libido: 8/10 Onset of sexual dysfunction: 2 years ago And was gradual Before the problem, intercourse frequency: weekly Currently, intercourse frequency: 0 Masturbation frequency: 0 Lubricant used with masturbation: No Percent of the time able to penetrate: 30% Loses erections prior to penetration: Yes Loses erections during intercourse: Yes Penile length loss: Erect Yes Flaccid Yes Penile deformity History Onset/duration: 2 years Last change in curvature: upward Presenting symptom: Deformity nodule Pain with erections: No Pain with intercourse: No Pain when flaccid: No History of trauma: Yes History of Dupuytren's No History of Congenital curve No Prior/current treatments: No Bother: moderate Partner Bother: moderate Impairment: moderate Primary deformity: upward Secondary deformity: N/a Difficulty with penetration: yes Patient Goals: Get erections He primarily has difficulty with achieving and maintaining an erection. Without medication with a partner, he rates his erectile rigidity as a 3 on a scale of 0-10 (with 6 being just firm enough for penetration). Without medication with masturbation, he rates his erectile rigidity as a 0 on a scale of 0-10 (with 6 being just firm enough for penetration). At night / upon awakening, he rates his erectile rigidity as a 00 on a scale of 0-10 (with 6 being just firm enough for penetration). Orgasm present: Yes Orgasmic Pain: No Premature Ejaculation: No Control: poor Bother: severe Partner Bother: moderate He has tried Sildenafil in the past with unsatisfactory results. With Sildenafil, he rates his erectile rigidity as a 4 on a scale of 0-10 (with 6 being just firm enough for penetration). He does take the oral PDE5- on an empty stomach, 1 hour prior to intercourse and without alcohol. He does not take oral nitrates for chest pain. Past Medical History Past Medical History: Diagnosis Date Arrhythmia GERD (gastroesophageal reflux disease) PRIETO (obstructive sleep apnea) Past Surgical History No past surgical history on file. Medications Current Outpatient Medications Medication Sig Dispense Refill amLODIPine 5 MG tablet Take 1 tablet by mouth daily. aspirin 81 MG Chew Tab chewable tablet Chew 1 tablet daily. cholestyramine light 4 g Pack packet Take 1 packet by mouth 2 times daily. DULoxetine [address] Particles capsule DR Take 1 capsule by mouth daily. multivitamin w/ minerals tablet Take 1 tablet by mouth daily. pravastatin 20 MG tablet Take 1 tablet by mouth every evening at 6 PM. traZODone 50 MG tablet Take 1 tablet by mouth At bedtime. diltiazem 120 MG Cap SR 24HR capsule XL Take 1 capsule by mouth daily. (Patient not taking: Reported on 01/23/2025) No current facility-administered medications for this visit. Allergies No Known Allergies Social History Social History Socioeconomic History Marital status: Tobacco Use Smoking status: Heavy Smoker Types: Cigars Start date: 11/11/2020 Smokeless tobacco: Never Substance and Sexual Activity Alcohol use: Not Currently Drug use: Never Family History No family history on file. Review of Systems Complete ROS was queried, reviewed and has been scanned into IHIS. Pertinent findings are included in the interval history. Physical Exam Pulse 70 Ht 1.778 m (5' 10) Wt 85.3 kg (188 lb) SpO2 96% BMI 26.98 kg/m Smoking Status Heavy Smoker Body mass index is 26.98 kg/m . Constitutional: He is well-developed, well-nourished, and in no distress. Neurological: He is alert and oriented to person, place, and time. Psychiatric: Mood and affect normal. HEENT: Normocephalic and atraumatic. Conjunctivae normal. Oropharynx is clear and moist. Neck supple. Lymphadenopathy: He has no cervical, supraclavicular, or inguinal adenopathy. Cardiovascular: normal peripheral perfusion Pulmonary/Chest: Respirations are even and non-labored. No respiratory distress. Abdominal: Soft. He exhibits no distension, no ascites and no mass. There is no tenderness. No hernia. Neurological: A + O. Cranial Nerves II-XII grossly intact. Normal gait. Extremities: DEUCE, Warm. No clubbing. No cyanosis. Skin: Skin is warm and dry. No lesion and no rash noted. Genitourinary Penis: circumcised penis, glans Bruised, no penile discharge. No rashes/lesions. Penile stretch: abnormal and poor. Penile plaque: abnormal Palpable ~3cm dorsal plaque on exam, mildly tender. Labs Hematocrit (%) Date Value 01/09/2021 42.3 Assessment/Plan Mr. Brannon is a 59 y.o. male with: 1. Peyronie's Disease/Erectile Dysfunction- I had a long discussion with this patient about an IPP placement. The risk were explained. The infection rate is about 2 - 3%. If an infection were to occur, the prosthesis would need to be removed. Depending on the the severity of the infection, a prosthesis may or may not be able to be replaced in the same setting. Delayed replacement of a prosthesis is more difficult and is occasionally not possible. Like any other mechanical device, mechanical dysfunction can occur. If this were to happen, revision surgery would be necessary. Like any other surgical procedure, injury to surrounding organs is possible during the surgery. Known surrounding organ injuries include the urethra and the bladder. If a urethral injury were to occur, the procedure would need to be abandoned until the urethra has healed. Cardiovascular risks such as an UT or PE are not uncommon to any surgical procedure requiring general or regional anesthesia. documented in this encounter [facility] 08-01-2024 Telephone encounter Note Called to offer surgery date with Dr. Garza, no answer, LMTCB [facility] 08-01-2024 Miscellaneous Notes Called to offer surgery date with Dr. Garza, no answer, LMTCB documented in this encounter [facility] 07-27-2024 Note HNO ID: [id number] Author: PROMISE GODINEZ APRN.TEJINDER Service: ? Author Type: Nurse Practitioner Type: Progress Notes Filed: 07/27/2024 20:08 Note Text: [facility] MALE PATIENT - HISTORY AND PHYSICAL EXAMINATION PATIENT: Saqib Brannon Patient has been identified by name and date of : Yes PCP: No primary care provider on file. CHIEF COMPLAINT: ER follow up HISTORY OF PRESENT ILLNESS: Saqib Brannon is a 58 year old male presenting today for: ER follow up. Pt has a hx of Peyronie's disease with penile doppler on 02/26/[address] Garza - 50 degree dorsal curvature. He was to have an IPP scheduled, but has held off. He is not taking PDE5Is because he reports they do not provide much benefit. Pt presented to the ER on 07/23/24 for concern for penile fracture. During intercourse pt felt a pop. No erection was lost and he could continue to have sex. Presented to the ER the next day with penile bruising and swelling. Pt denies any pain. No concerns with urination and no hematuria. There was no ability to do imagining at the [place] [facility] and he decided not to get trnaferred to another hospital. Erection was about a 7/10 at the base, but softer near the glans during the suspected penile fracture. He has had some spontaneous erections after the episode, but they are not as strong as they were. REVIEW OF SYSTEMS: relevant updates noted in HPI PAST MEDICAL HISTORY: PAST MEDICAL HISTORY Diagnosis Date Irritable bowel syndrome Irritable bowel Mixed hyperlipidemia Hyperlipidemia PAST SURGICAL HISTORY Procedure Laterality Date COLONOSCOPY FLX DX W/COLLJ SPEC WHEN PFRMD 11/27/2004 Colonoscopy PAST SURGICAL HISTORY OF knee surgery (right) --> meniscus ([place]) VASECTOMY UNI/BI SPX W/POSTOP SEMEN EXAMS 2003 Social History Tobacco Use Smoking status: Never Substance Use Topics Alcohol use: Yes Drug use: No FAMILY HISTORY Problem Relation Age of Onset Heart Mother CAD -- first dx'd age 40's Heart Father defib/pacer; first disease age 30's, no known CAD GI Brother resection -- not sure of details; MEDICATIONS: reviewed and confirmed with patient OFFICE DATA: labs reviewed OTHER DATA: Labs reviewed No results found for: PSA No results found for: TESTOST, TESTFREE No results found for: HBA1C No results found for: TSH No results found for: CREAT PHYSICAL EXAMINATION: The sensitive examination was discussed with the Patient or Patient's Authorized Manager Wound Care. As applicable, any other physician, advance practice provider, medical student, or other health professional student that will be observing or involved in the sensitive examination for educational or training purposes was discussed with the Patient or Authorized Manager Wound Care. The Patient or Authorized Manager Wound Care has agreed to proceed with the sensitive examination. (Sensitive examination includes inspection and/or palpation of the breasts, pelvis, prostate and anorectal regions) General appearance: cooperative, pleasant, no acute distress, alert and oriented, well nourished male. Neuro: normal affect, normal speech, gait is normal. Lungs/chest: no signs of respiratory distress, no audible wheezing Extremities: no edema, normal motor function. Back: no CVA tenderness Abdomen: ni suprapubic distention Scrotum: no lesions, no hydrocele Testes: descended bilaterally, non-tender, nl size bilaterally, no intratesticular masses bilaterally Penis: circumcised, NL phallus, no lesions, NL meatus. -extensive bruising to both penis and scrotum. -Dr. Butterfield was in to assess pt. ASSESSMENT: 1. Fracture of corpus cavernosum penis, sequela - ICD9: 908.9, ICD10: S39.840S (primary diagnosis) 2. Peyronie's disease - ICD9: 607.85, ICD10: N48.6 3. Erectile dysfunction, unspecified erectile dysfunction type - ICD9: 607.84, ICD10: N52.9 PLAN: 1. Fracture of corpus cavernosum penis, sequela -pop felt during sexual encounter - Dr. Butterfield in to assess pt. -Due to length of time since occurrence and current assessment, will not proceed with surgical intervention 2. Peyronie's disease -50 degree dorsal curvature. 3. Erectile dysfunction, unspecified erectile dysfunction type -no improvement with PDE5Is -counseled on use of DONNA. -pt is interested in proceeding with IPP. The results of tests will be communicated to patient via telephone. Patient verbalized understanding. Promise Godinez APRN.[facility] Location: [facility] 07-27-2024 History of Presen t illness Narrative [facility] MALE PATIENT - HISTORY AND PHYSICAL EXAMINATION PATIENT: Saqib Brannon Patient has been identified by name and date of : Yes PCP: No primary care provider on file. CHIEF COMPLAINT: ER follow up HISTORY OF PRESENT ILLNESS: Saqib Brannon is a 58 year old male presenting today for: ER follow up. Pt has a hx of Peyronie's disease with penile doppler on 02/26/[address] Garza. Degree of curvature was 50 and dorsal. He was to have an IPP scheduled, but has held off. He is not taking PDE5Is because he reports they do not provide much benefit. Pt presented to the ED on 07/23/24 for concern for penile fracture. During intercourse pt felt a pop. No erection was lost and could continue to have sex. Presented to the ER the next day with penile bruising and swelling. Pt denies any pain. No concerns with urination and no hematuria. There was no ability to do imagining at the [facility] he was at and he decided not to present to another hospital system. Erection was about a 7/10 at th base, but softer near the glans during suspected penile fracture. He has had some spontaneous erections after the episode, but they are not as strong as they were. REVIEW OF SYSTEMS: relevant updates noted in HPI PAST MEDICAL HISTORY: PAST MEDICAL HISTORY Diagnosis Date Irritable bowel syndrome Irritable bowel Mixed hyperlipidemia Hyperlipidemia PAST SURGICAL HISTORY Procedure Laterality Date COLONOSCOPY FLX DX W/COLLJ SPEC WHEN PFRMD 11/27/2004 Colonoscopy PAST SURGICAL HISTORY OF knee surgery (right) --> meniscus ([place]) VASECTOMY UNI/BI SPX W/POSTOP SEMEN EXAMS 2003 Social History Tobacco Use Smoking status: Never Substance Use Topics Alcohol use: Yes Drug use: No FAMILY HISTORY Problem Relation Age of Onset Heart Mother CAD -- first dx'd age 40's Heart Father defib/pacer; first disease age 30's, no known CAD GI Brother resection -- not sure of details; MEDICATIONS: reviewed and confirmed with patient OFFICE DATA: labs reviewed OTHER DATA: Labs reviewed No results found for: PSA No results found for: TESTOST, TESTFREE No results found for: HBA1C No results found for: TSH No results found for: CREAT PHYSICAL EXAMINATION: The sensitive examination was discussed with the Patient or Patient's Authorized Manager Wound Care. As applicable, any other physician, advance practice provider, medical student, or other health professional student that will be observing or involved in the sensitive examination for educational or training purposes was discussed with the Patient or Authorized Manager Wound Care. The Patient or Authorized Manager Wound Care has agreed to proceed with the sensitive examination. (Sensitive examination includes inspection and/or palpation of the breasts, pelvis, prostate and anorectal regions) General appearance: cooperative, pleasant, no acute distress, alert and oriented, well nourished male. Neuro: normal affect, normal speech, gait is normal. Lungs/chest: no signs of respiratory distress, no audible wheezing Extremities: no edema, normal motor function. Back: no CVA tenderness Abdomen: ni suprapubic distention Scrotum: no lesions, no hydrocele Testes: descended bilaterally, non-tender, nl size bilaterally, no intratesticular masses bilaterally Penis: circumcised, NL phallus, no lesions, NL meatus. -extensive bruising to both penis and scrotum. -Dr. Butterfield was in to assess pt. ASSESSMENT: 1. Fracture of corpus cavernosum penis, sequela - ICD9: 908.9, ICD10: S39.840S (primary diagnosis) 2. Peyronie's disease - ICD9: 607.85, ICD10: N48.6 3. Erectile dysfunction, unspecified erectile dysfunction type - ICD9: 607.84, ICD10: N52.9 PLAN: 1. Fracture of corpus cavernosum penis, sequela -pop felt during sexual encounter - Dr. Butterfield in to assess pt. -Due to length of time since occurrence and current assessment, will not proceed with surgical intervention 2. Peyronie's disease -50 degree dorsal curvature. 3. Erectile dysfunction, unspecified erectile dysfunction type -no improvement with PDE5Is -counseled on use of DONNA. -pt is interested in proceeding with IPP. The results of tests will be communicated to patient via telephone. Patient verbalized understanding. Promise Godinez APRN.[facility] Location: MAIN documented in this encounter [facility] 02-29-2024 Telephone encounter Note Reached out to patient to offer surgery with Dr. Garza, he is still discussing procedure with . He will call if he decides to have surgery, gave number to call back. [facility] 02-29-2024 Miscellaneous Notes Reached out to patient to offer surgery with Dr. Garza, he is still discussing procedure with . He will call if he decides to have surgery, gave number to call back. documented in this encounter [facility] 02-26-2024 Nurse Note Actual procedure/procedure scheduled: Yes Performing provider/scheduled provider: Yes Patient was roomed in: Q9- 12 Front End Specialist offered:Patient declines Patient arrived in the room at: 0950 Patient ready for procedure: 1000 The procedure started at ( Time Only): 1015 The procedure ended at: 1048 Was the procedure delayed: Yes: Provider late: Provider with other patient on Q9 The patient left the procedure room at: 1100 Sade Stevens RN PRE PROCEDURE NURSE ASSESSMENT Patient ID with two (2) identifiers verified by: Sade Stevens RN Procedure/Indication:Penile Doppler with Intracavernous Latex Allergy: No Allergies reviewed and updated: Yes Pre- Procedure Vital Signs: BP: 151/65 Pulse: 71 Current pain intensity is 0 on a 0-10 pain scale. Does the patient have any concerns about safety in the home/falls? Not at risk for falls PROCEDURE The patient is here for an injection of Prostaglandin E1 by Dr. Tavo Garza Lot # [id number] Expiration Date: 09/2025 Injection Time: 1021 POST INJECTION VITAL SIGNS Time 1053 BP: 131/8 Pulse: 68 The patient was injected with Phenylephrine (1mg/0.1cc): Yes Phenylephrine injection given by Dr. Tavo Garza Lot #: [id number] Expiration Date: 07/2024 POST PROCEDURE NURSE ASSESSMENT Current Pain intensity is: 0 on a 0-10 pain scale. Post injection evaluation: Condition of penis is wnl AMBULATORY PATIENT EDUCATION THE FOLLOWING WAS EVALUATED Motivation To Learn: Eager Family/Significant Other Support: None - Unavailable/disinterested Cognitive Ability: Alert/Oriented Method of Instruction: Individual instruction The Following Influencing Factors Were Barriers To This Education Session: None The Following Physical Limitations Were Barriers To This Education Session: None Instruction Provided To: Patient Marksmanship Instructor Present: not applicable Discipline: Nursing Learning Topic: SURVIVAL SKILLS: Complication Prevention Patient Evaluation: Verbalizes understanding: Yes Supplemental Material Given: Written Material Instructed By Sade Stevens RN In Department Urology . T [facility] 02-26-2024 Note HNO ID: [id number] Author: SADE STEVENS RN Service: ? Author Type: Registered Nurse Type: Progress Notes Filed: 02/26/2024 09:53 Note Text: UNIVERSAL PROTOCOL / SAFETY CHECKLIST Procedure to be Performed: penile doppler Sign In: A Moment of CARE was completed. Personnel directly involved with the procedure wore the appropriate PPE (Personal Protective Equipment). Patient/Surrogate Stated/Verified: PATIENT VERIFIED(optional for EMERGENT procedures): Patient name, Date of , Relevant allergies, and The intended procedure Time Out Communication: Intended patient and procedure match the source documents. Consent documented and matches the intended procedure. Relevant labs, photos, and/or imaging studies have been reviewed. Correct side/site marked and visible. Medications required for procedure verified. Fire risk assessed and interventions discussed. No implant(s) inserted. Sign Out: SIGN OUT (optional for EMERGENT procedures): No specimen collected. Sade Stevens RN [facility] 02-26-2024 History of Presen t illness Narrative UNIVERSAL PROTOCOL / SAFETY CHECKLIST Procedure to be Performed: penile doppler Sign In: A Moment of CARE was completed. Personnel directly involved with the procedure wore the appropriate PPE (Personal Protective Equipment). Patient/Surrogate Stated/Verified: PATIENT VERIFIED(optional for EMERGENT procedures): Patient name, Date of , Relevant allergies, and The intended procedure Time Out Communication: Intended patient and procedure match the source documents. Consent documented and matches the intended procedure. Relevant labs, photos, and/or imaging studies have been reviewed. Correct side/site marked and visible. Medications required for procedure verified. Fire risk assessed and interventions discussed. No implant(s) inserted. Sign Out: SIGN OUT (optional for EMERGENT procedures): No specimen collected. Sade Stevens RN February 26, 2024 Saqib Brannon [id number] 1965 PENILE DUPLEX DOPPLER ULTRASOUND (PDDUS) Penile ultrasound -- CPT 15154 Penile injection for erection -- CPT 00678 Injection for reversal of erection -- CPT 66397 Associated Conditions: Peyronie's Disease Patient underwent penile duplex ultrasound procedure with pulsed Doppler analysis following vasoactive medication in order to objectively define and understand the underlying cause and degree of sexual dysfunction. The benefits and risks of the procedure were discussed with the patient, and all questions were answered to the patient's satisfaction. Verbal consent for the procedure was obtained from the patient. The patient was placed on the procedure table in the supine position. Medication: Prostaglandin E1 20 mcg intracavernous injection. Redosing: No Procedure: A baseline penile examination was performed: Stretched penile length (pubis to cochran): 11 cm Palpable plaques: Yes, dorsal The penis was scanned in the flaccid state (baseline) with images obtained both transversely and longitudinally. Plaque calcifications: No Calcification grade: n/a Size of calcification: n/a The cavernosal artery diameter was measured at baseline. Pharmacologic injection of erectogenic agent was performed. After 10 minutes the penis was rescanned and the cavernosal arteries were measured again to assess distensibility in response to the vasoactive medication. (A 100% increase in diameter is normally expected.) Cavernosal Artery Diameter Measurements: Left Cavernosal Artery (LCA): Baseline measurement: 1.39 mm 2nd measurement: 1.07 mm Right Cavernosal Artery (RCA): Baseline measurement: 0.88 mm 2nd measurement: 1.19 mm Each of the selectively imaged arteries underwent penile Doppler analysis with generation of waveform approximately 10 minutes following injection of vasoactive agents. The peak systolic velocity and the end-diastolic velocity data of the corporal arteries are tabulated below. (A velocity of 30 cm/sec or more is normally expected for peak systolic velocity and a velocity of 0-3 cm/sec is normally expected for the end-diastolic velocity.) Resistive Index (RI) parameters were obtained bilaterally (normal 1.00). Cavernosal Artery Velocity (V) Measurements: Left Cavernosal Artery (LCA) V: Peak systolic velocity: 104.18 cm/second --> 17.04 distaly End diastolic velocity: 11.7 cm/second --> 0 distally Resistive index: 0.89 Right Cavernosal Artery (RCA) V: Peak systolic velocity: 82.06 cm/second --> 26.2 distal End diastolic velocity: 11.9 cm/second --> 12.25 distal Resistive index: 0.85 --> 0.53 distal POST INJECTION PENILE EXAM: Deformity present: Yes Curvature and direction: dorsal 50 deg Differential girth: Base: 13 cm Distal: 11 cm Indentation: No Narrowing: Yes Hourglass: No Hinge effect: Yes BQE Achieved: Yes Erection grade (0-10): 7 Spontaneous Detumescence: No Phenylephrine Required: Yes, 800mcg Adverse Reactions: No Sign Out Details of Procedure: Listed Above Sign Out Discussion: Completed IMPRESSION: Arterial Distensibility Normal Arterial Peak Flow Velocities: Normal End Diastolic Velocities/Resistive Index: Abnormal and Consistent with Corporal Veno-occlusive Dysfunction Peyronie's Plaque and Curvature Yes CLASSIFICATION OF ERECTILE DYSFUNCTION*: Vasculogenic - Cavernosal: i.e. tunica albuginae, cavernous muscle, endothelium, emissary vein, fibroelastic trabeculae (*Kushal et al., Urology, August 1991, Volume 42, No. 4) PLAN: Detumescence was observed and the patient was discharged with a flaccid penis. Patient was advised to go to the emergency room immediately and notify our office should an erection occur and last more than 4 hours. Pt has venous leak distally and also hinge effect, moderate curvature and distal narrowing which all contributing to bother. Tried and failed PDE5i. Due to the presence of both Peyronie's disease and erectile dysfunction, I recommend penile prosthesis implantation with straightening maneuvers. We would begin by placing the penile prosthesis via a penoscrotal incision. If there is residual curvature with full inflation of the device, we would perform manual modeling. Discussed r/b/a at length. Other treatment alternatives were also presented including observation, a DONNA, penile traction therapy, Xiaflex and ED therapy with oral agents were also presented to the patient. I explained that this is not a penis lengthening procedure, and that his penile length may already be reduced from Peyronie's disease and chronic erectile dysfunction. Penile prosthesis implantation may further decrease stretched penile length. We specifically discussed the AMS 700cx with manual modeling via penoscrotal approach. Will have Franci call him next week to see if he wants to schedule. Diagnoses: ED organic and Peyronie's Tavo Garza MD Director, [facility] Staff, [facility] [place] documented in this encounter [facility] 02-26-2024 Nurse Note Actual procedure/procedure scheduled: Yes Performing provider/scheduled provider: Yes Patient was roomed in: Q9- 12 Front End Specialist offered:Patient declines Patient arrived in the room at: 0950 Patient ready for procedure: 1000 The procedure started at ( Time Only): 1015 The procedure ended at: 1048 Was the procedure delayed: Yes: Provider late: Provider with other patient on Q9 The patient left the procedure room at: 1100 Sade Stevens RN PRE PROCEDURE NURSE ASSESSMENT Patient ID with two (2) identifiers verified by: Sade Stevens RN Procedure/Indication:Penile Doppler with Intracavernous Latex Allergy: No Allergies reviewed and updated: Yes Pre- Procedure Vital Signs: BP: 151/65 Pulse: 71 Current pain intensity is 0 on a 0-10 pain scale. Does the patient have any concerns about safety in the home/falls? Not at risk for falls PROCEDURE The patient is here for an injection of Prostaglandin E1 by Dr. Tavo Garza Lot # [id number] Expiration Date: 09/2025 Injection Time: 1021 POST INJECTION VITAL SIGNS Time 1053 BP: 131/8 Pulse: 68 The patient was injected with Phenylephrine (1mg/0.1cc): Yes Phenylephrine injection given by Dr. Tavo Garza Lot #: [id number] Expiration Date: 07/2024 POST PROCEDURE NURSE ASSESSMENT Current Pain intensity is: 0 on a 0-10 pain scale. Post injection evaluation: Condition of penis is wnl AMBULATORY PATIENT EDUCATION THE FOLLOWING WAS EVALUATED Motivation To Learn: Eager Family/Significant Other Support: None - Unavailable/disinterested Cognitive Ability: Alert/Oriented Method of Instruction: Individual instruction The Following Influencing Factors Were Barriers To This Education Session: None The Following Physical Limitations Were Barriers To This Education Session: None Instruction Provided To: Patient Marksmanship Instructor Present: not applicable Discipline: Nursing Learning Topic: SURVIVAL SKILLS: Complication Prevention Patient Evaluation: Verbalizes understanding: Yes Supplemental Material Given: Written Material Instructed By Sade Stevens RN In Department Urology . documented in this encounter [facility] 02-26-2024 Note HNO ID: [id number] Author: TAVO GARZA MD Service: ? Author Type: Physician Type: Progress Notes Filed: 02/26/2024 11:42 Note Text: February 26, 2024 Saqib Brannon [id number] 1965 PENILE DUPLEX DOPPLER ULTRASOUND (PDDUS) Penile ultrasound -- CPT 75886 Penile injection for erection -- CPT 50917 Injection for reversal of erection -- CPT 39912 Associated Conditions: Peyronie's Disease Patient underwent penile duplex ultrasound procedure with pulsed Doppler analysis following vasoactive medication in order to objectively define and understand the underlying cause and degree of sexual dysfunction. The benefits and risks of the procedure were discussed with the patient, and all questions were answered to the patient's satisfaction. Verbal consent for the procedure was obtained from the patient. The patient was placed on the procedure table in the supine position. Medication: Prostaglandin E1 20 mcg intracavernous injection. Redosing: No Procedure: A baseline penile examination was performed: Stretched penile length (pubis to cochran): 11 cm Palpable plaques: Yes, dorsal The penis was scanned in the flaccid state (baseline) with images obtained both transversely and longitudinally. Plaque calcifications: No Calcification grade: n/a Size of calcification: n/a The cavernosal artery diameter was measured at baseline. Pharmacologic injection of erectogenic agent was performed. After 10 minutes the penis was rescanned and the cavernosal arteries were measured again to assess distensibility in response to the vasoactive medication. (A 100% increase in diameter is normally expected.) Cavernosal Artery Diameter Measurements: Left Cavernosal Artery (LCA): Baseline measurement: 1.39 mm 2nd measurement: 1.07 mm Right Cavernosal Artery (RCA): Baseline measurement: 0.88 mm 2nd measurement: 1.19 mm Each of the selectively imaged arteries underwent penile Doppler analysis with generation of waveform approximately 10 minutes following injection of vasoactive agents. The peak systolic velocity and the end-diastolic velocity data of the corporal arteries are tabulated below. (A velocity of 30 cm/sec or more is normally expected for peak systolic velocity and a velocity of 0-3 cm/sec is normally expected for the end-diastolic velocity.) Resistive Index (RI) parameters were obtained bilaterally (normal 1.00). Cavernosal Artery Velocity (V) Measurements: Left Cavernosal Artery (LCA) V: Peak systolic velocity: 104.18 cm/second --> 17.04 distaly End diastolic velocity: 11.7 cm/second --> 0 distally Resistive index: 0.89 Right Cavernosal Artery (RCA) V: Peak systolic velocity: 82.06 cm/second --> 26.2 distal End diastolic velocity: 11.9 cm/second --> 12.25 distal Resistive index: 0.85 --> 0.53 distal POST INJECTION PENILE EXAM: Deformity present: Yes Curvature and direction: dorsal 50 deg Differential girth: Base: 13 cm Distal: 11 cm Indentation: No Narrowing: Yes Hourglass: No Hinge effect: Yes BQE Achieved: Yes Erection grade (0-10): 7 Spontaneous Detumescence: No Phenylephrine Required: Yes, 800mcg Adverse Reactions: No Sign Out Details of Procedure: Listed Above Sign Out Discussion: Completed IMPRESSION: Arterial Distensibility Normal Arterial Peak Flow Velocities: Normal End Diastolic Velocities/Resistive Index: Abnormal and Consistent with Corporal Veno-occlusive Dysfunction Peyronie's Plaque and Curvature Yes CLASSIFICATION OF ERECTILE DYSFUNCTION*: Vasculogenic - Cavernosal: i.e. tunica albuginae, cavernous muscle, endothelium, emissary vein, fibroelastic trabeculae (*Kushal et al., Urology, August 1991, Volume 42, No. 4) PLAN: Detumescence was observed and the patient was discharged with a flaccid penis. Patient was advised to go to the emergency room immediately and notify our office should an erection occur and last more than 4 hours. Pt has venous leak distally and also hinge effect, moderate curvature and distal narrowing which all contributing to bother. Tried and failed PDE5i. Due to the presence of both Peyronie's disease and erectile dysfunction, I recommend penile prosthesis implantation with straightening maneuvers. We would begin by placing the penile prosthesis via a penoscrotal incision. If there is residual curvature with full inflation of the device, we would perform manual modeling. Discussed r/b/a at length. Other treatment alternatives were also presented including observation, a DONNA, penile traction therapy, Xiaflex and ED therapy with oral agents were also presented to the patient. I explained that this is not a penis lengthening procedure, and that his penile length may already be reduced from Peyronie's disease and chronic erectile dysfunction. Penile prosthesis implantation may further decrease stretched penile length. We specifically discussed the AMS [id number] with manual modeling via penoscrotal (more content not included)... [facility] 02-22-2024 Note HNO ID: [id number] Author: TAVO GARZA MD Service: ? Author Type: Physician Type: Progress Notes Filed: 02/22/2024 14:18 Note Text: Saqib Brannon Referred by: No referring provider defined for this encounter. 02/22/2024 CC: Peyronie's Disease HPI: 58 year old, male presents for evaluation of Peyronie's Disease. Onset: 2 years Trauma: No Degree AND direction of Curvature: up about 90 degrees Erections Painful: ache Painful at baseline: No Partner bothered?: Yes Duration of stability: 1 year Length loss (inches): yes; lost about half of length Narrowing: No Indentation: No Hourglass deformity: No Instability/hinge effect: Yes On ED meds?: no Erections (baseline): 05/11 Very difficult to tell based on curvature Libido intact: Yes Orgasm/ejaculation intact: Yes Sensation intact: Yes Overall energy level: yes Prostate Cancer: No Currently taking Nitrates: No ROS: Urinary sx: none Hematuria: none Nondiabetic Nonsmoker Peyronie's Disease Questionnaire (PDQ) INSTRUCTIONS: The purpose of this questionnaire is to identify any problems you may be having with erection or vaginal intercourse. Some of the questions apply to vaginal intercourse with a female partner, others do not. Vaginal [employer] within the last 3 months: Yes -If yes, how many times have your had vaginal intercourse in the last 3 months? 3 -If yes, what was the date of the last time you had vaginal intercourse? 01/2024 Men with Peyronie?s disease may have problems during vaginal intercourse. The questions below ask about the severity of any problems that you may be having during vaginal [employer]. For each problem below, please pauma the number that best describes how severe the problem was THE LAST TIME YOU HAD VAGINAL INTERCOURSE. Q1. Concern about damaging penis while having vaginal intercourse: 0- None Q2. Bending or collapsing of penis while having vaginal intercourse: 4- Very Severe Q3. Trouble inserting erect penis into partner?s vagina: 4- Very Severe Q4. Difficulty with some positions that you used to enjoy when having vaginal intercourse: 4- Very Severe Q5. Awkwardness with some positions that you used to enjoy when having vaginal intercourse: 4- Very Severe Q6. Discomfort with some positions that you used to enjoy when having vaginal intercourse: 4- Very Severe Thinking of your last erection or the last time you had vaginal intercourse, please indicate the level of pain or discomfort you felt. (0-10; 0= No Pain or Discomfort- 10= Extreme Pain for Discomfort) Q7. In the LAST 24 HOURS, how much pain or discomfort have you felt in your penis when it was NOT erect? Please answer for the LAST 24 HOURS only. 1 Q8. Thinking about the LAST TIME you were erect, how much pain or discomfort did you feel in your penis when it was erect? Please answer for the LAST TIME YOU HAD AN ERECTION. 4 Q9. Thinking about the LAST TIME you had vaginal intercourse, how much pain or discomfort did you feel in your penis when having vaginal intercourse? Please answer for the LAST TIME YOU HAD VAGINAL INTERCOURSE. 3 Men with Peyronie?s disease may have problems with erection and/or vaginal intercourse. These problems can be bothersome for some men and not for others. Q10. Thinking about the LAST TIME you had an erection, how bothered were you by any pain or discomfort you may have felt in your erect penis? Please answer for the LAST TIME YOU HAD AN ERECTION. A little bit bothered -(if 'did not feel any pain or discomfort,' got to Q11) Q11. Thinking about the LAST TIME you looked at your erect penis, how bothered were you by the way your penis looked? Please answer for the LAST TIME YOU HAD AN ERECTION. Very bothered Q12. Does your Peyronie?s Disease make having vaginal intercourse difficult or impossible? Yes -If NO: go to Q14; If YES: go to Q13 Q13. Thinking of the LAST TIME you had or tried to have vaginal intercourse, how bothered were you by your Peyronie?s Disease? Very bothered Q14. Are you having vaginal intercourse LESS OFTEN than you used to due to your Peyronie?s Disease? Yes -If NO: end questionnaire; If YES: go to Q15 Q15. How bothered are YOU with having vaginal intercourse less often? Very bothered Patient Entered Questionnaires PROMIS Global Health 02/22/2024 PROMIS Global Health Scale Physical Health Percentile 31 Mental Health Percentile 34 Percentiles provide an indication of how the patient's score ranks in relation to the general population. Higher percentile rankings indicate better function/quality of life. 50th percentile is the average of the general population and indicates half of respondents had a worse score. PAST MEDICAL HISTORY Diagnosis Date Irritable bowel syndrome Irritable bowel Mixed hyperlipidemia Hyperlipidemia PAST SURGICAL HISTORY Procedure Laterality Date COLONOSCOPY FLX DX W/COLLJ SPEC WHEN PFRMD (more content not included)... [facility] 02-22-2024 History of Presen t illness Narrative Saqib rBannon Referred by: No referring provider defined for this encounter. 02/22/2024 CC: Peyronie's Disease HPI: 58 year old, male presents for evaluation of Peyronie's Disease. Onset: 2 years Trauma: No Degree & direction of Curvature: up about 90 degrees Erections Painful: ache Painful at baseline: No Partner bothered?: Yes Duration of stability: 1 year Length loss (inches): yes; lost about half of length Narrowing: No Indentation: No Hourglass deformity: No Instability/hinge effect: Yes On ED meds?: no Erections (baseline): 05/11 Very difficult to tell based on curvature Libido intact: Yes Orgasm/ejaculation intact: Yes Sensation intact: Yes Overall energy level: yes Prostate Cancer: No Currently taking Nitrates: No ROS: Urinary sx: none Hematuria: none Nondiabetic Nonsmoker Peyronie's Disease Questionnaire (PDQ) INSTRUCTIONS: The purpose of this questionnaire is to identify any problems you may be having with erection or vaginal intercourse. Some of the questions apply to vaginal intercourse with a female partner, others do not. Vaginal [employer] within the last 3 months: Yes -If yes, how many times have your had vaginal intercourse in the last 3 months? 3 -If yes, what was the date of the last time you had vaginal intercourse? 01/2024 Men with Peyronie s disease may have problems during vaginal intercourse. The questions below ask about the severity of any problems that you may be having during vaginal [employer] For each problem below, please pauma the number that best describes how severe the problem was THE LAST TIME YOU HAD VAGINAL INTERCOURSE. Q1. Concern about damaging penis while having vaginal intercourse: 0- None Q2. Bending or collapsing of penis while having vaginal intercourse: 4- Very Severe Q3. Trouble inserting erect penis into partner s vagina: 4- Very Severe Q4. Difficulty with some positions that you used to enjoy when having vaginal intercourse: 4- Very Severe Q5. Awkwardness with some positions that you used to enjoy when having vaginal intercourse: 4- Very Severe Q6. Discomfort with some positions that you used to enjoy when having vaginal intercourse: 4- Very Severe Thinking of your last erection or the last time you had vaginal intercourse, please indicate the level of pain or discomfort you felt. (0-10; 0= No Pain or Discomfort- 10= Extreme Pain for Discomfort) Q7. In the LAST 24 HOURS, how much pain or discomfort have you felt in your penis when it was NOT erect? Please answer for the LAST 24 HOURS only. 1 Q8. Thinking about the LAST TIME you were erect, how much pain or discomfort did you feel in your penis when it was erect? Please answer for the LAST TIME YOU HAD AN ERECTION. 4 Q9. Thinking about the LAST TIME you had vaginal intercourse, how much pain or discomfort did you feel in your penis when having vaginal intercourse? Please answer for the LAST TIME YOU HAD VAGINAL INTERCOURSE. 3 Men with Peyronie s disease may have problems with erection and/or vaginal intercourse. These problems can be bothersome for some men and not for others. Q10. Thinking about the LAST TIME you had an erection, how bothered were you by any pain or discomfort you may have felt in your erect penis? Please answer for the LAST TIME YOU HAD AN ERECTION. A little bit bothered -(if 'did not feel any pain or discomfort,' got to Q11) Q11. Thinking about the LAST TIME you looked at your erect penis, how bothered were you by the way your penis looked? Please answer for the LAST TIME YOU HAD AN ERECTION. Very bothered Q12. Does your Peyronie s Disease make having vaginal intercourse difficult or impossible? Yes -If NO: go to Q14; If YES: go to Q13 Q13. Thinking of the LAST TIME you had or tried to have vaginal intercourse, how bothered were you by your Peyronie s Disease? Very bothered Q14. Are you having vaginal intercourse LESS OFTEN than you used to due to your Peyronie s Disease? Yes -If NO: end questionnaire; If YES: go to Q15 Q15. How bothered are YOU with having vaginal intercourse less often? Very bothered Patient Entered Questionnaires PROMIS Global Health 02/22/2024 PROMIS Global Health Scale Physical Health Percentile 31 Mental Health Percentile 34 Percentiles provide an indication of how the patient's score ranks in relation to the general population. Higher percentile rankings indicate better function/quality of life. 50th percentile is the average of the general population and indicates half of respondents had a worse score. PAST MEDICAL HISTORY Diagnosis Date Irritable bowel syndrome Irritable bowel Mixed hyperlipidemia Hyperlipidemia PAST SURGICAL HISTORY Procedure Laterality Date COLONOSCOPY FLX DX W/COLLJ SPEC WHEN PFRMD 11/27/2004 Colonoscopy PAST SURGICAL HISTORY OF knee surgery (right) --> meniscus ([place]) VASECTOMY UNI/BI SPX W/POSTOP SEMEN EXAMS 2003 Current Outpatient Medications Medication Sig amLODIPine (NORVASC) 5 mg tablet Take 1 tablet by mouth every afternoon. aspirin 81 mg chewable tablet Take 81 mg by mouth. busPIRone (BUSPAR) 7.5 mg tablet Take 1 tablet by mouth every 12 hours. clonazePAM (KLONOPIN) 0.5 mg tablet Take 0.5 mg by mouth daily at bedtime. DULoxetine (CYMBALTA) 60 mg capsule Take 1 capsule by mouth every afternoon. lisinopril-hydroCHLOROthiazide (ZESTORETIC) 20-25 mg per tablet Take 1 tablet by mouth every afternoon. meloxicam (MOBIC) 15 mg tablet Take 1 tablet by mouth every afternoon. multivitamin tablet Take 1 tablet by mouth once daily. pravastatin (PRAVACHOL) 20 mg tablet Take 1 tablet by mouth every afternoon. traZODone (DESYREL) 100 mg tablet Take 100 mg by mouth daily at bedtime. famciclovir 500 mg tablet Take 3 tablets on day of cold sore outbreak. cyclobenzaprine 10 mg ORAL tablet Take 1 tablet by mouth at bedtime as needed. citalopram (CELEXA) 40 mg ORAL tablet Take 1.5 tablets by mouth once daily. Cholestyramine-Aspartame 4 gram ORAL powder Take by mouth. 1 scoop daily in 8 oz water sildenafil (VIAGRA) 100 mg tablet Take 1 tablet by mouth once daily as needed. Take 30-60 minutes before sexual activity on an empty stomach cholestyramine low-calorie 4 gram ORAL packet One packet daily in 8oz of water. No current facility-administered medications for this visit. Allergies: Patient has no known allergies. FAMILY HISTORY Problem Relation Age of Onset Heart Mother CAD -- first dx'd age 40's Heart Father defib/pacer; first disease age 30's, no known CAD GI Brother resection -- not sure of details; Social History Tobacco Use Smoking status: Never Substance Use Topics Alcohol use: Yes Drug use: No Review of Systems: All other systems reviewed and noncontributory EXAM: There were no vitals filed for this visit. GENERAL: alert, no distress, normal affect CARDIAC: normal RESPIRATORY: normal effort ABDOMEN: soft, non-tender EXTREMITIES: normal SKIN: normal NEUROLOGIC: normal GENITAL: Phallus: normal, circumcised, no lesions, reduced elasticity, dorsal plaque Meatus: orthotopic, patent, no discharge Scrotum: no lesions, normal rugae Testes: Descended, nontender, and no masses bilaterally Epididymides: L Palp, non-tender R palp, non-tender Vas deferens: palpable bilaterally Varicocele:None ASSESSMENT/PLAN: 1. Peyronie's disease - ICD9: 607.85, ICD10: N48.6 (primary diagnosis) 2. ED (erectile dysfunction) of organic origin - ICD9: 607.84, ICD10: N52.9 Saqib Brannon is a 58 year old year old male with penile deformity due to Peyronie's Disease. Based on his history he seems to be in the stable phase of Peyronie's disease. We thoroughly discussed the diagnosis of Peyronie's disease including the etiology and natural history of the disease. Only a small percentage of Peyronie's disease cases improve spontaneously. We discussed the management of Peyronie's disease including penile traction therapy, oral therapies, intralesional injections (Xiaflex and verapamil) and surgical treatments including plication, partial plaque excision or incision and grafting and penile prosthesis implantation with straightening maneuvers. Risks and benefits for each therapy were discussed with the patient and all questions were answered. In order to determine the optimal treatment approach and to further characterize his deformity and erections, the patient will return for a penile duplex ultrasound with intracavernosal injection. Information regarding penile traction therapy was provided. Sildenafil prn for ED Schedule doppler for this Thursday at [facility] Tavo Garza MD Director, [facility] Staff, Department of Urology [facility] documented in this encounter [facility] 09-08-2022 History of Presen t illness Narrative [facility] - [facility] Patient / Followup Visit Patient Name: Saqib Brannon Admit Date: MR #: [id number] : 1965 Physicians: Chase Curiel MD (Family); No ref. provider found (Referring) Chief Complaint/Reason for Visit: ED History of Present Illness: 57 y.o. male with history of erectile dysfunction & peyronie disease. 06/09/2022 Initially referred, established with [facility], seen by me. - Onset / duration - 1 year - Able to achieve ~50% strength erections. - Strong enough for minimal penetration with intercourse. - Can still achieve orgasm & ejaculation. - No prior treatment / medications. - Also with PD: noticed a firm scar tissue on the shaft of his penis near the glans; first noticed around the time of onset of ED ~1 year ago. - Mildly uncomfortable, worse with erection / intercourse. - No curvature. - No urinary sx. - No prior UTI / STI. - Prior forceful impact to erect penis during intercourse ~1.5 years ago, prior to onset of ED & the plaque. Denies rapid detumescence, penile swelling or bruising at that time. - Denies any other previous penile trauma. - Palpable ~3cm dorsal plaque on exam, mildly tender. Plan: trial sildenafil 50mg, monitor PD symptoms due to active phase. 09/08/2022 Returns for followup. - Did not fill sildenafil, wanted to wait. - Reports ~60% strength erections, still functional. - No longer having any penile pain. - Started to notice slight dorsal curvature, he estimates <30%. History: Past Medical History: Diagnosis Date Depressive disorder Erectile dysfunction 05/23 Hernia cerebri (HCC) Hyperlipidemia Kidney stone 2009 SVT (supraventricular tachycardia) ([facility]) s/p cardiac ablation 01/09/2021 Past Surgical History: Procedure Laterality Date ablation svt 02/13/2021 HERNIA REPAIR 2014? VASECTOMY Family History Problem Relation Age of Onset Heart disease Mother Heart disease Father Cancer Brother Social History Socioeconomic History Marital status: Tobacco Use Smoking status: Some Days Types: Cigars Passive exposure: Current Smokeless tobacco: Never Allergies: I have reviewed the patient's allergies. Patient has no known allergies. Home Medications: Outpatient Medications as of 09/08/2022 Medication Sig cholestyramine (QUESTRAN) 4 gram powder take 1 scoopful DISSOLVED IN WATER once daily DULoxetine (CYMBALTA) 30 MG capsule Take by mouth . multivitamin with minerals tablet Take 1 tablet by mouth daily . pravastatin (PRAVACHOL) 20 MG tablet Take 20 mg by mouth every evening . traZODone (DESYREL) 100 MG tablet Take 100 mg by mouth nightly . Review of Systems: The following system(s) were reviewed and pertinent findings noted: Review of Systems Constitutional: Negative for activity change, chills and fever. Respiratory: Negative for cough and shortness of breath. Cardiovascular: Negative for chest pain and palpitations. Gastrointestinal: Negative for abdominal pain, diarrhea, nausea and vomiting. Objective: Vital Signs: BP (!) 136/91 Pulse 64 Physical Exam Vitals reviewed. Constitutional: General: He is not in acute distress. Appearance: He is not ill-appearing. HENT: Head: Normocephalic and atraumatic. Pulmonary: Effort: Pulmonary effort is normal. No respiratory distress. Abdominal: General: There is no distension. Palpations: Abdomen is soft. Tenderness: There is no abdominal tenderness. Genitourinary: Comments: ~3cm by ~3cm nontender dorsal plaque ~1-2cm proximal to the cochran. No other plaques identified. Musculoskeletal: General: No deformity. Cervical back: Neck supple. No rigidity. Skin: General: Skin is warm and dry. Neurological: General: No focal deficit present. Mental Status: He is alert and oriented to person, place, and time. Psychiatric: Mood and Affect: Mood normal. Behavior: Behavior normal. Laboratory Results Reviewed: No results found for: PSASCRN, PSA, PSAFREE No results found for this or any previous visit (from the past 24 hour(s)). Imaging Reviewed: None Assessment: Saqib Brannon is a 57 y.o. y/o male Diagnoses and all orders for this visit: Mixed erectile dysfunction - sildenafiL (VIAGRA) 50 MG tablet; Take 1 (one) tablet (50 mg total) by mouth daily as needed for erectile dysfunction . Peyronie disease - sildenafiL (VIAGRA) 50 MG tablet; Take 1 (one) tablet (50 mg total) by mouth daily as needed for erectile dysfunction . - Discussed dietary & lifestyle changes for overall health & its contribution to erections, including weight loss, increasing / regular physical activity, heart-healthy / low-salt / low-fat diet, adequate glycemic control for diabetics, smoking cessation for smokers. - Discussed the importance of mental / emotional / behavioral health & its contribution to sexual health, confidence & healthy erectile function / sexual performance. - Discussed the negative impacts of stress & anxiety on sexual health. - Discussed risks/benefits/alternatives to oral therapy for ED. - Discussed appropriate dosing / timing of sildenafil allowing at least 30-60 minutes prior to sexual encounter for sildenafil & 1-2 hours for tadalafil, avoiding fatty meal prior to use of sildenafil, possible side affects. - Discussed cost-savings resources for oral medications. - Discussed alternative treatments for ED including DONNA +/- constriction ring, intraurethral medication, ICI, penile prosthesis. - Discussed signs/symptoms & typically clinical course of Peyronie disease including active phase & stable disease. - Discussed the recommendation for in-office intracavernosal injection for artificial erection for complete evaluation of plaques & curvature prior to invasive intervention. - Discussed risks/benefits/alternatives to therapies including NSAIDs and/or ESWT for pain in active phase, intralesional collagenase injections with modeling, intralesional interferon alpha-2b, intralesional verapamil, surgical treatments including plication, plaque incision and/or excision with or without grafting, penile prosthesis. - He is not interested in PD treatment at this point, but he is again agreeable to trial of sildenafil, says he will fill the medication this time & assess symptoms. Plan: - Trial sildenafil 50mg tablet. - F/u 3mo to reassess. - Patient expressed understanding of the above discussion. All questions answered. Assessment Detail: The total time spent for this visit was 30 minutes. Greater than 50% of the time was spent in counseling and coordination of care regarding ED, Peyronie disease, followup plan. Shey Chandra MD [facility] - Urology 9:41 AM 09/08/22 documented in this encounter [facility] 06-09-2022 History of Presen t illness Narrative [facility] - Urology [facility] Patient / Consultation Patient Name: Saqib Brannon Admit Date: MR #: [id number] : 1965 Physicians: No primary care provider on file. (Family); No ref. provider found (Referring) Chief Complaint/Reason for Visit: erectile dysfunction History of Present Illness: 56 y.o. male referred for erectile dysfunction Onset / duration - 1 year Patient only able to achieve ~50% strength erections. This is only strong enough for minimal penetration with intercourse. He can still achieve orgasm & ejaculation. Has not tried any medication for ED. He has noticed a firm scar tissue on the shaft of his penis near the glans. First noticed it ~1 year ago around the time his ED symptoms began. Describes it as mildly painful/tender when touching it & more noticeably uncomfortable during erections/intercourse. Denies penile curvature. Denies urinary symptoms - hematuria, dysuria, difficulty urinating, split / weak stream. Denies Hx UTI or STI. Reports a forceful impact to his erect penis during intercourse with his ~1.5 years ago or ~6mo prior to onset of ED & the plaque. Denies rapid detumescence, penile swelling or bruising at that time. Denies any other previous penile trauma. History: Past Medical History: Diagnosis Date Depressive disorder Hernia cerebri (HCC) Hyperlipidemia SVT (supraventricular tachycardia) (HCC) s/p cardiac ablation 01/09/2021 Past Surgical History: Procedure Laterality Date ablation svt 02/13/2021 Family History Problem Relation Age of Onset Heart disease Mother Heart disease Father Cancer Brother Social History Socioeconomic History Marital status: Tobacco Use Smoking status: Some Days Types: Cigars Passive exposure: Current Smokeless tobacco: Never Allergies: I have reviewed the patient's allergies. Patient has no known allergies. Home Medications: Outpatient Medications as of 06/09/2022 Medication Sig DULoxetine (CYMBALTA) 30 MG capsule Take by mouth . cholestyramine (QUESTRAN) 4 gram powder take 1 scoopful DISSOLVED IN WATER once daily multivitamin with minerals tablet Take 1 tablet by mouth daily . pravastatin (PRAVACHOL) 20 MG tablet Take 20 mg by mouth every evening . traZODone (DESYREL) 100 MG tablet Take 100 mg by mouth nightly . Review of Systems: The following system(s) were reviewed and pertinent findings noted: Review of Systems Constitutional: Negative for activity change, chills and fever. Respiratory: Negative for cough and shortness of breath. Cardiovascular: Negative for chest pain and palpitations. Gastrointestinal: Negative for abdominal pain, constipation, diarrhea, nausea and vomiting. Endocrine: Negative for polydipsia and polyuria. Objective: Vital Signs: BP 134/84 Pulse 64 SpO2 95% Physical Exam Vitals reviewed. Constitutional: General: He is not in acute distress. Appearance: He is not ill-appearing. HENT: Head: Normocephalic and atraumatic. Pulmonary: Effort: Pulmonary effort is normal. No respiratory distress. Abdominal: General: There is no distension. Palpations: Abdomen is soft. Tenderness: There is no abdominal tenderness. Genitourinary: Comments: Circumcised phallus, orthotopic meatus. Scrotum without edema or skin lesions. Testicles nontender & palpably normal. On the dorsal penile shaft there is a firm ~3cm x ~3cm plaque centered around 12 o'clock with distal edge ~1-2 cm proximal to the cochran; minimal tenderness; no other plaques appreciated Musculoskeletal: General: No deformity. Cervical back: Neck supple. No rigidity. Skin: General: Skin is warm and dry. Neurological: General: No focal deficit present. Mental Status: He is alert and oriented to person, place, and time. Psychiatric: Mood and Affect: Mood normal. Behavior: Behavior normal. Laboratory and Additional Data Reviewed: No results found for: PSASCRN, PSA, PSAFREE Assessment and Plan: Saqib Brannon is a 56 y.o. y/o male Diagnoses and all orders for this visit: Mixed erectile dysfunction - sildenafiL (VIAGRA) 50 MG tablet; Take 1 (one) tablet (50 mg total) by mouth daily as needed for erectile dysfunction Take 45-60 minutes prior to sexual encounter. . Peyronie disease - Discussed patient's symptoms & physical exam. - With presence of pain & ED but no significant curvature, appears his plaque formation is in the active phase. - Suspect his ED is multifactorial with some contribution from the active PD / plaque. - Discussed in the active phase of PD, the only guideline-directed treatment is anti-inflammatory medication for pain control if pain is significant. - Discussed management options for PD in stable phase including intralesional injections, penile plication, surgical incision/excision. - Discussed management of ED including PDEi, DONNA, intraurethral medication, ICI, penile prosthesis. Discussed risks/benefits/alternatives/antoine e effects of PDEi. - Trial sildenafil. Monitor PD symptoms. F/u 3mo to reassess. - Patient expressed understanding of the above discussion. All questions answered. Assessment Detail: The total time spent for this visit was 50 minutes. Greater than 50% of the time was spent in counseling and coordination of care regarding patient assessment, discussion, counseling of diagnosis & management options & medications including risks/benefits/side effects. Shey Chandra MD [facility] - Urology 9:19 AM 06/09/22 documented in this encounter [facility] Chief complaint+Reason for v isit Narrative [facility] Work Phone: Evaluation note* Diagnosis Mixed erectile dysfunction- Primary Peyronie disease Peyronie's disease [facility] Diagnosis Mixed erectile dysfunction- Primary Peyronie disease Peyronie's disease documented in this encounter [facility] noteNo assessment information [facility]WNorwalk [facility] Work Phone: Evaluation note* Diagnosis Peyronie's disease- Primary ED (erectile dysfunction) of organic origin Impotence of organic origin [facility] Diagnosis Peyronie's disease- Primary Erectile dysfunction of organic origin Impotence of organic origin documented in this encounter [facility]* Diagnosis Fracture of corpus cavernosum penis, sequela- Primary Peyronie's disease Erectile dysfunction, unspecified erectile dysfunction type [facility] Diagnosis Fracture of corpus cavernosum penis, sequela- Primary Peyronie's disease Fracture of corpus cavernosum penis, sequela Peyronie's disease documented in this encounter [facility]* Diagnosis Peyronie's disease- Primary Penile fracture, sequela Other male erectile dysfunction [facility] in this encounter [facility] Diagnosis Peyronie's disease- Primary Penile fracture, sequela Other male erectile dysfunction [facility] Attachments The following attachments cannot be sent through Care Everywhere. * Erectile Dysfunction (Lao) * Peyronie's Disease: General Info (Lao) documented in this encounterOhioHealthInstructions* Attachments The following attachments cannot be sent through Care Everywhere. * Erectile Dysfunction (Lao) * Peyronie's Disease: General Info (Lao) documented in this encounterOhioHealthReason for referral (narrative)* Outpatient Procedure (Routine) - Pending Review Specialty Diagnoses / Procedures Referred By Contac t Referred To Contact [facility] Diagnoses Peyronie's disease Procedures PENILE DOPPLER UROLOGY DUP-SCAN ARTL INFL&LUANNE O/F PEN VSL COMPL NJX C/P/A CAVERNOSA W/PHARMACOLOGIC AGT Olivier Umaña MD [address] [place] [address] [place] [address] Referral ID Status Reason Start Date Expiration Date Visits Requested Visits Authorized [id number] Pending Review Auto-Generat ed Referral 02/22/2024 02/21/2025 1 1 [facility] Summary Purpose Family History No Family History Records Found Relationship Condition Age at Onset Recorded Date/T thu Not Specified Cardiac disease Unknown Advance Directives No Advanced Directives Records Found Advance Directive Response Recorded Date/ Time Advance Directives Yes August 07, 2015 8:22am Living Will Yes August 26 10:16pm Power of Medical Services Manager No August 26, 2020 10:16pm Reason for Referral Specialty Diagnoses / Procedures Referred By Contac t Referred To Contact Diagnoses Fracture of corpus cavernosum penis, sequela Peyronie's disease Procedures REFER TO [facility] - PREOPERATIVE OPTIMIZATION OFFICE/OUTPATIENT [facility] MDM 60 MINUTES Megha Patel MD [address] [place] [address] Referral ID Status Reason Start Date Expiration Date Visits Requested Visits Authorized [id number] Authorized PCP Requested Referral 08/01/2024 08/01/2025 1 1 Specialty Diagnoses / Procedures Referred By Contac t Referred To Contact [facility] Diagnoses Fracture of corpus cavernosum penis, sequela Peyronie's disease Procedures ECG COMPLETE ECG ROUTINE ECG W/LEAST 12 LDS W/I&R Megha Patel MD [address] [place] [address] [facility] [address] [place] [address] Referral ID Status Reason Start Date Expiration Date Visits Requested Visits Authorized [id number] New Request Auto-Generat ed Referral 08/01/2024 08/01/2025 1 1 Additional Source Comments Reason for Visit (unrecogniz ed section and content) Reason Comments Erectile Dysfunction Reason Comments Follow-up 3 month f/u ED; give n sildenafil. Never picked up d/t to cost. Reason Comments New Patient Reason Comments Patient Update Reason Comments Follow Up Reason Comments New Patient Specialty Diagnoses / Procedures Referred By Contac t Referred To Contact Urology Diagnoses Curvature of the penis Chase Curiel MD [address] [place] [address] Phone: tel: fax: [facility] [address] [place] [address] Referral ID Status Reason Start Date Expiration Date V isits Requested Visits Authorized [id number] New Request 12/22/2024 01/16/2026 1 1 Reason Comments Follow-up Care Teams (unrecognized sec tion and content) Pharmacy Intake Coordinator Relationship Specialty Start Date End Date Chase Curiel MD [address] [place] [address] PCP - General Family Medicine 09/08/22 Chase Kaplan Primary Care Physician 09/08/22 09/08/22 Team Status: Active Member Role Status Dates Dr. Chase Curiel MD Family Provider Active Dr. Chase Curiel MD Primary Care Provider Active Team Status: Inactive Member Role Status Dates Dr. Chase Curiel MD Primary Care Provider, Attending Provider Active Team Status: Active Member Role Status Dates Dr. Chase Curiel MD Primary Care Provi nu, Referring Provider, Other Provider Active Dr. Cristian Hogan MD Attending Provider Active Team Status: Inactive Member Role Status Dates Dr. Chase Curiel MD Primary Care Provi nu, Attending Provider, Referring Provider Active Pharmacy Intake Coordinator Relationship Specialty Start Date End Date Chase Curiel MD [address] [place] [address] PCP - General Family Medicine 01/09/21 Pharmacy Intake Coordinator Relationship Specialty Start Date End Date Chase Curiel MD PCP - General Family Medicine 01/09/21 (unrecognized sect ion and content) No Status Records FoundNo Status Records FoundNo Status Records FoundNo Status Records Found INFORMATION SOURCE (unrecogn ized section and content) DATE CREATED AUTHOR 12/09/2022 [facility] DATE CREATED AUTHOR AUTHOR'S ORGANIZ ATION 08/04/2024 [facility] DATE CREATED AUTHOR AUTHOR'S ORGANIZ ATION 02/14/2025 [facility] DATE CREATED AUTHOR AUTHOR'S ORGANIZ ATION 05/19/2025 [facility] Goals (unrecognized section and content) Goals may be documented in a n alternate sectionGoals may be documented in an alternate sectionGoals may be documented in an alternate section Source Comments (unrecognize d section and content) In the event this informatio n is protected by the Federal Confidentiality of Alcohol and Drug Abuse Patient Records regulations: The Federal rules restrict any use of the information to criminally investigate or prosecute any alcohol or drug abuse patient.[facility] HospitalIn the event this information is protected by the Federal Confidentiality of Alcohol and Drug Abuse Patient Records regulations: The Federal rules restrict any use of the information to criminally investigate or prosecute any alcohol or drug abuse patient.[facility] HospitalIn the event this information is protected by the Federal Confidentiality of Alcohol and Drug Abuse Patient Records regulations: The Federal rules restrict any use of the information to criminally investigate or prosecute any alcohol or drug abuse patient.[facility] HospitalIn the event this information is protected by the Federal Confidentiality of Alcohol and Drug Abuse Patient Records regulations: The Federal rules restrict any use of the information to criminally investigate or prosecute any alcohol or drug abuse patient.[facility] HospitalIn the event this information is protected by the Federal Confidentiality of Alcohol and Drug Abuse Patient Records regulations: The Federal rules restrict any use of the information to criminally investigate or prosecute any alcohol or drug abuse patient.[facility] HospitalIn the event this information is protected by the Federal Confidentiality of Alcohol and Drug Abuse Patient Records regulations: The Federal rules restrict any use of the information to criminally investigate or prosecute any alcohol or drug abuse patient.[facility] HospitalIn the event this information is protected by the Federal Confidentiality of Alcohol and Drug Abuse Patient Records regulations: The Federal rules restrict any use of the information to criminally investigate or prosecute any alcohol or drug abuse patient.[facility] FOR RECORDS PERTAINING TO PATIENTS WHO ARE OR HAVE BEEN ENROLLED IN A CHEMICAL DEPENDENCY/SUBSTANCEABUSE PROGRAM, SOME INFORMATION MAY BE OMITTED. This clinical summary was aggregated from multiple sources. Caution should be exercised in using it in the provision of clinical care. This summary normalizes information from multiple sources, and as a consequence, information in this document may materially change the coding, format and clinical context of patient data. In addition, data may be omitted in some cases. CLINICAL DECISIONS SHOULD BE BASED ON THE PRIMARY CLINICAL RECORDS. [facility]. provides no warranty or guarantee of the accuracy or completeness of information in this document.
== END | disposition home or self-care (01) ==
LOC: MTLAB 09:45
PROVIDERS: PCP Family Medicine; Referring Provider Family Medicine; Visit Provider Family Medicine
DX: I10 Essential (primary) hypertension (principal); E29.1 Testicular hypofunction
CPT/HCPCS: 36415; 80053; 80061; 84403; 85025